=== PATIENT | male | born 1940 | race Caucasian/White ===

== ENCOUNTER 2016-09-01 10:58 | Observation (INO) | payer MEDICARE, OTHER ==
[~2016-09-01] VITALS: Ht 188 cm; Wt 82.2 kg
[2016-09-01] MEDS: OCUVITE 1 TAB PO SCH (09:00)
[2016-09-01] MEDS: VITAMIN B COMPLEX/VIT C CAP PO SCH (09:00)
[2016-09-01] MEDS: VITAMIN D 1,000 INTERNATIONAL UNITS TABLET PO SCH (09:00)
[2016-09-01] MEDS: CO-ENZYME Q10 50 MG CAP PO SCH (09:00)
[2016-09-01] MEDS: ENOXAPARIN 30 MG/0.3 ML SYR (J1650) SC SCH (09:00)
[2016-09-01 12:28] LABS: BASO % 0.5 % (0.0-1.0); EOS # 0.4 K/mm3 (0.0-0.50); EOS % 3.4 % (0.0-3.0); LARGE UNSTAINED CELL # 0.2 K/mm3 (0.0-0.4); LARGE UNSTAINED CELL % 1.8 % (0.0-4.0); LYMPH # 2.8 K/mm3 (1.5-4.5); LYMPH % 23.7 % (24.0-44.0); MEAN CORPUSCULAR HEMOGLOBIN 30.3 pg (27.0-33.0); MEAN CORPUSCULAR HGB CONC 32.6 g/dl (32.0-36.5); MONO # 0.6 K/mm3 (0.0-0.8); MONO % 5.8 % (0.0-5.0); NEUTROPHILS % 64.9 % (36.0-66.0); PLATELET COUNT, AUTOMATED 569 k/mm3 (150-450); WHITE BLOOD COUNT 10.8 K/mm3 (4.0-10.0)
--- NOTE | 2016-09-01 12:36 | REP ---
Clinical: Trauma. Fall. Comparison: None . Findings: The mediastinum and cardiac silhouette are stable and within normal limits for portable technique. The lung campoverde are clear without acute consolidation, effusion, or pneumothorax. Skeletal structures are intact. Widening to the left acromioclavicular joint is similar to prior CT dated 10/27/2015. Impression: No acute cardiopulmonary process appreciated. Signed by Tejas Tristan MD 09/01/2016 12:28 P
--- NOTE | 2016-09-01 12:53 | REP ---
CT HEAD WITHOUT CONTRAST: HISTORY: Fall. Areas of decreased attentuation are present in the periventricular white matter. This represents small vessel ischemic disease. There is no intraparenchymal hemorrhage, mass, or midline shift. The ventricular system and cortical sulci as well as subarachnoid space in the posterior fossa are dilated consistent with mild volume loss. There is no extracerebral collection. There is no fracture. The visualized sinuses are clear. IMPRESSION: 1. Small vessel ischemic disease. 2. Mild volume loss. Signed by Jose Alejandro Beclher MD 09/01/2016 01:01 P
[2016-09-01 12:59] LABS: ALBUMIN 3.6 GM/DL (3.2-5.2); ALBUMIN/GLOBULIN RATIO 0.88 (1.00-1.93); ALKALINE PHOSPHATASE 83 U/L (45-117); ALT/SGPT 17 U/L (12-78); ANION GAP 9 MEQ/L (8-16); AST/SGOT 19 U/L (15-37); BILIRUBIN,DIRECT 0.1 MG/DL (0.0-0.2); BILIRUBIN,TOTAL 0.4 MG/DL (0.2-1.0); BLOOD UREA NITROGEN 18 MG/DL (7-18); CALCIUM LEVEL 9.1 MG/DL (8.8-10.2); CARBON DIOXIDE LEVEL 30 MEQ/L (21-32); CHLORIDE LEVEL 96 MEQ/L (98-107); CREATININE FOR GFR 0.94 MG/DL (0.70-1.30); GLOMERULAR FILTRATION RATE > 60.0 (>42); GLUCOSE, FASTING 117 MG/DL (83-110); SODIUM LEVEL 135 MEQ/L (136-145); TOTAL PROTEIN 7.7 GM/DL (6.4-8.2)
--- NOTE | 2016-09-01 14:04 | REP ---
Clinical: Trauma. Technique: AP, lateral, bilateral oblique and sunrise views of the left knee. Findings: Osteopenia and age-related degenerative changes including medial and patellofemoral joint space compartment narrowing with subchondral sclerosis is appreciated. No acute fracture dislocation. No effusion. Impression: Osteopenia and degenerative changes. No acute fracture or dislocation. Signed by Tejas Tristan MD 09/01/2016 01:55 P
[2016-09-01] MEDS: NS 1,000 ML IV SCH (14:18)
[2016-09-01] MEDS ORDERED: BISACODYL 5 MG TAB PO PRN (14:30)
[2016-09-01] MEDS ORDERED: ONDANSETRON 4MG/2ML VIAL (J2405) IV PRN (14:30)
[2016-09-01] MEDS ORDERED: CEFUROXIME 250 MG TAB PO ONE (14:30)
[2016-09-01] MEDS ORDERED: ACETAMINOPHEN TAB 650MG DOSE (2X325MG) PO PRN (14:30)
[2016-09-01] MEDS ORDERED: PERCOCET 5MG/325MG TAB PO PRN (14:30)
[2016-09-01] MEDS ORDERED: HYDR25TAB PO (14:53)
[2016-09-01] MEDS ORDERED: COLA100C PO (14:53)
[2016-09-01] MEDS ORDERED: METO12TA PO (14:53)
[2016-09-01] MEDS ORDERED: NORT25CA2 PO (14:53)
[2016-09-01] MEDS ORDERED: VITATAB11 PO (14:53)
[2016-09-01] MEDS ORDERED: VITA100066 PO (14:53)
[2016-09-01] MEDS ORDERED: SIMV20TA2 PO (14:53)
[2016-09-01] MEDS ORDERED: ASPI1TAB PO (14:53)
[2016-09-01] MEDS ORDERED: LUPR45IN IM (14:53)
[2016-09-01] MEDS ORDERED: CO Q200C PO (14:53)
[2016-09-01] MEDS ORDERED: DOXA1TAB49 PO (14:53)
[2016-09-01] MEDS ORDERED: ZOFR8TAB PO (14:54)
[2016-09-01] MEDS ORDERED: TRAM50TA2 PO (14:54)
[2016-09-01] MEDS ORDERED: CEFT250T8 PO (14:54)
[2016-09-01] MEDS ORDERED: OCUVTAB PO (14:56)
[2016-09-01] MEDS ORDERED: OYST500T17 PO (14:56)
[2016-09-01] MEDS ORDERED: XTAN40CA PO (14:56)
[2016-09-01] MEDS ORDERED: MIRA3350 PO (14:56)
[2016-09-01 15:00] LABS: CALCIUM OXALATE CRYSTALS SMALL
[2016-09-01] MEDS ORDERED: traMADol 50 MG TAB PO PRN (15:30)
[2016-09-01] MEDS ORDERED: ONDANSETRON 4 MG TAB (S0181) PO PRN (15:30)
[2016-09-01] MEDS ORDERED: DOCUSATE SODIUM 100 MG CAP PO PRN (15:30)
[2016-09-01] MEDS ORDERED: MIRALAX *UNIT DOSE* 17GM PACKET PO PRN (15:30)
--- NOTE | 2016-09-01 15:32 | HPEPDOC ---
Medical History and Physical Date of Admission Sep 01, 2016 at 14:18 History and Physical ATTENDING: Dr. Haque PCP: Dr Sharla Dominguez CC: Falls/weakness HPI: 76 yoM with a past medical history significant for hypertension, hyperlipidemia, metastatic prostate cancer recent double J stent placement at [facility] approximately 1 week ago. He had a hospital follow-up appointment yesterday with his PCP with referral to a local urologist, Dr. Billings for continued follow-up. He was continued on oral Ceftin following his discharge. He states he hasn't been feeling well until 3 AM today when he suddenly felt weak and slightly lightheaded. When he tried to get up from a sitting position he states he had 3 falls. On one occasion he had his left knee causing some discomfort in his knee. He states he had no loss of consciousness. No head injury. No syncopal episode. No palpitations. No chest discomfort. He reported to the emergency department for further evaluation Denies any fevers, chills, weakness , fatigue, WANG, CP, SOB, cough, palpitations, abdominal pain, N/V/D or changes in bowel or bladder habits. Upon presentation to the hospital the patient was found to have orthostatic hypotension, thus the hospitalist team was consulted. PMHx: Prostate cancer with history of metastases status post radiation treatment and chemotherapy as per Dr. Lee/Dwain NIDDM- diet controlled Hypertension Hyperlipidemia Vitamin D deficiency Chronic left knee pain PSHX: Left rotator cuff repair Circumcision 2008 Left CEA Bilateral cataract Double-J stent 09/07 SOCHX: Resides in: [place] Marital Status: Kids: 3 Employment: Retired Tobacco use: Denies ETOH: Denies Illicit Drugs: Denies Advanced directives: none ROS: As noted in HPI, otherwise 11pt ROS of systems reviewed and unremarkable PE: GEN: 76yoM, appears stated age. Well-nourished, well developed. No acute distress sitting up on stretcher currently eating crackers and drinking. Alert and oriented x 3. Pleasant, interactive. HEENT: Normocephalic, atraumatic. Pupils are equal, round, and reactive to light. Extraocular movements are intact. No nystagmus appreciated. Sclera are nonicteric. Conjunctiva without injection. Nose midline. Nasal turbinates without bogginess. EACs both patent BL. TMs both visualized and sibley with good cone of light, no bulging or erythema. No facial asymmetry. Moist mucous membranes. Dentition fair. Pharynx pink and moist, no cobblestoning. Neck supple , trachea midline. No lymphadenopathy or thyromegaly appreciated. CHEST: Regular rate and rhythm, +S1, +S2 LUNGS: Clear to auscultation bilaterally. No wheezes, rales, or rhonchi. Breathing appears symmetric and easy. Patient is speaking in full sentences. No accessory muscle use. ABD: Round, soft, non-tender, non-distended. +Bowel sounds throughout. No rebound or guarding. No costovertebral angle tenderness. EXT: Pulses 2+ bilaterally dorsalis pedis and radial. No lower extremity edema appreciated. SKIN: [place], dry, warm. Capillary refill <2sec. No rashes. NEURO: Alert and oriented x 3. Cranial nerves III-XII are intact. No focal deficits appreciated. Blood pressure lying 135/64 Sitting 99/50 Standing 93/53 CXR: No acute cardiopulmonary process CT: Head. Small vessel ischemic disease, mild volume loss X-ray left knee osteopenia and degenerative change, no acute fracture or dislocation EKG: Normal sinus rhythm at 61 bpm, right bundle branch block. Urine culture pending A&P: 6 yoM with a past medical history significant for hypertension, hyperlipidemia, metastatic prostate cancer recent double J stent placement at [facility] approximately 1 week ago. He had a hospital follow-up appointment yesterday with his PCP with referral to a local urologist, Dr. Billings for continued follow-up. He was continued on oral Ceftin following his discharge. The patient will be admitted to / for at least [address] Haque's service. Orthostatic hypotension. IVF. Monitor Orthostatic vital signs. Hold antihypertensives. Status post fall/left knee pain. PT eval and treat. Tylenol as needed. Ultram as needed. Double-J stent placement. This was completed approximately 1 week ago as per [facility] in [place]. Plan is for referral to Urology locally, Dr Billings. UC pending. Cont po Ceftin. History of prostate cancer. Follows with Dr. Prakash as outpatient. Doxazosin. Hyperlipidemia. Statin HTN. Metoprolol/HCTZ/ASA on hold. DVT prophylaxis. SCD/TEDS The patient is a Full code Vital Signs 93/53 74 18 98.3 100 room air Laboratory Data Labs 24H Laboratory Tests 2 09/01/16 12:14: Aspartate Amino Transf (AST/SGOT) 19, Alanine Aminotransferase (ALT/SGPT) 17, Alkaline Phosphatase 83, Total Bilirubin 0.4, Direct Bilirubin 0.1, Albumin 3.6 , Albumin/Globulin Ratio 0.88L, Anion Gap 9, White Blood Count 10.8H, Red Blood Count 4.16L, Hemoglobin 12.6L, Hematocrit 38.7L, Mean Corpuscular Volume 93.0, Mean Corpuscular Hemoglobin 30.3, Mean Corpuscular Hemoglobin Concent 32.6, Red Cell Distribution Width 14.0, Platelet Count 569H, Neutrophils (%) (Auto) 64.9, Lymphocytes (%) (Auto) 23.7L, Monocytes (%) (Auto) 5.8H, Eosinophils (%) (Auto) 3.4H, Basophils (%) (Auto) 0.5, Neutrophils # (Auto) 7.0, Lymphocytes # (Auto) 2.8, Monocytes # (Auto) 0.6, Eosinophils # (Auto) 0.4, Basophils # (Auto) 0.0, Calcium Level 9.1, Creatine Kinase MB 1.0, Creatine Kinase MB Relative Index 3.22, Glomerular Filtration Rate > 60.0, Large Unclassified Cells # 0.2, Large Unclassified Cells % 1.8, Total Creatine Kinase 31L, Total Protein 7.7, Troponin I < 0.02 09/01/16 14:31: Urine Amorphous Sediment , Urine Appearance HAZY, Urine Color YELLOW, Urine pH 6.0, Urine Specific [place] 1.014, Urine Protein 2+H, Urine Glucose (UA) NEGATIVE, Urine Ketones NEGATIVE, Urine Urobilinogen 0.2, Urine Bilirubin NEGATIVE, Urine Leukocyte Esterase 1+H, Urine Bacteria (Auto) NEGATIVE, Urine Blood 3+H, Urine Calcium Carbonate Cryst(Auto) , Urine Calcium Oxalate Cryst ( Auto) SMALL, Urine Calcium Phosphate Shobha (Auto) , Urine Cellular Casts , Urine Cystine Crystals , Urine Granular Casts (Auto) , Urine Hyaline Casts (Auto) 0, Urine Leucine Crystals , Urine Mucus (Auto) SMALL, Urine Nitrite NEGATIVE, Urine Oval Fat Bodies (Auto) , Urine RBC (Auto) TNTCH, Urine Renal Epithelial Cells , Urine Sperm (Auto) , Urine Squamous Epithelial Cells 0, Urine Transitional Epithelial Cells , Urine Trichomonas (Auto) , Urine Triple Phosphate Cryst (Auto) , Urine Tyrosine Crystals , Urine Uric Acid Crystals ( Auto) , Urine WBC (Auto) 137H, Urine Waxy Casts (Auto) , Urine Yeast-Like Cells (Auto) CBC/BMP Laboratory Tests 09/01/16 12:14 Red Blood Count 4.16 L, Mean Corpuscular Volume 93.0, Mean Corpuscular Hemoglobin 30.3, Mean Corpuscular Hemoglobin Concent 32.6, Red Cell Distribution Width 14.0, Neutrophils (%) (Auto) 64.9, Lymphocytes (%) (Auto) 23.7 L, Monocytes (%) (Auto) 5.8 H, Eosinophils (%) (Auto) 3.4 H, Basophils (%) (Auto) 0.5, Neutrophils # (Auto) 7.0, Lymphocytes # (Auto) 2.8, Monocytes # ( Auto) 0.6, Eosinophils # (Auto) 0.4, Basophils # (Auto) 0.0 Microbiology Microbiology 09/01/16 Urine Culture, Received Pending Home Medications Scheduled (Co Q-10) 200 Mg Cap 200 MG PO DAILY Aspirin (Aspirin 81) 81 Mg Tab 162 MG PO DAILY B1/B2/B3/B5/B6 (Vitamin B Complex) 1 Tab Tab 1 TAB PO DAILY Calcium/Vitamin D (Oyster Shell Calcium + 500-200 mg-Unit) 1 Tab Tab 1 TAB PO DAILY Cefuroxime Axetil (Ceftin) 250 Mg Tab 250 MG PO BID STARTED 08/27/16 FOR 7 DAYS Cholecalciferol (Vitamin D) 1,000 Unit Tab 1,000 UNIT PO DAILY Doxazosin Mesylate (Doxazosin Mesylate) 8 Mg Tab 8 MG PO QPM Enzalutamide Base (Xtandi) 40 Mg Cap 120 MG PO DAILY Hydrochlorothiazide (Hydrochlorothiazide) 25 Mg Tab 25 MG PO DAILY Leuprolide Acetate (Lupron Depot) 45 Mg Inj 45 MG IM ASDIRECTED EVERY 6 MONTHS: DUE DECEMBER 2016 Metoprolol Tartrate (Metoprolol Tartrate) 25 Mg Tab 25 MG PO BID Multivitamins (Ocuvite) 1 Tab Tab 1 TAB PO DAILY Nortriptyline HCl (Nortriptyline HCl) 25 Mg Cap 25 MG PO BID Simvastatin (Simvastatin) 20 Mg Tab 20 MG PO QPM Scheduled PRN Docusate Sodium (Colace) 100 Mg Cap 100 MG PO DAILY PRN PRN CONSTIPATION Ondansetron HCl (Zofran) 8 Mg Tab 8 MG PO TID PRN PRN NAUSEA OR VOMITING Polyethylene Glycol (Miralax) 1 Pow 17 GM PO DAILY PRN PRN CONSTIPATION Tramadol HCl (Tramadol HCl) 50 Mg Tab 50 MG PO Q6H PRN PRN PAIN Allergies Coded Allergies: No Known Drug Allergy (Verified Allergy, Unknown, 11/27/12) Jsoie Juarez Sep 01, 2016 15:32
[2016-09-01] MEDS ORDERED: DOXAZOSIN MESYLATE 4 MG TAB PO SCH (18:00)
--- NOTE | 2016-09-01 18:10 | ECGEPIP ---
Stationary ECG Study [facility] - ED Test Date: 2016-09-01 Pat Name: TITUS PURCELL Department: Room: - Gender: M Rn Private Duty: alphonse : 1940 Requested By: Zaid James Order Number: [id number] Reading MD: Rebeca Ventura Measurements Intervals [place] Rate: 61 P: 47 [place]: 164 QRS: 54 QRSD: 133 T: 21 QT: 506 QTc: 511 Interpretive Statements SINUS RHYTHM RIGHT BUNDLE BRANCH BLOCK NO PRIOR FOR COMPARISON Electronically Signed On 09-01-2016 18:10:12 EST by Rebeca Ventura
[2016-09-01] MEDS: SIMVASTATIN 20 MG TAB PO SCH (21:00)
[2016-09-01] MEDS: CEFUROXIME 250 MG TAB PO SCH (21:00)
[2016-09-01] MEDS: NORTRIPTYLINE 25 MG CAP PO SCH (21:00)
--- NOTE | 2016-09-02 01:55 | EDDOCDS ---
Physician Documentation [facility] Name: Jerry Ashley Age: 76 yrs Sex: Male : 1940 Arrival Date: 09/01/2016 Time: 10:58 Bed Admit Hold Private MD: Darrell Dominguez Disposition: 09/01/16 14:18 Hospitalization ordered by Aixa Barraza for Inpatient Admission. Preliminary diagnosis are Syncope and collapse, Orthostatic hypotension, Unspecified right bundle-branch block. - Bed requested for 5 Moran. - Status is Inpatient Admission. jp6 - Condition is Stable. - Problem is new. - Symptoms are unchanged. Historical: - Allergies: no known allergies; - Home Meds: 1. doxazosin 8 mg oral tr24 1 tab once daily (Last dose: 08/31/2016) 2. metoprolol tartrate 25 mg Oral tab 1 tab 2 times per day (Last dose: 09/01/2016) 3. simvastatin 20 mg Oral tab 1 tab once daily (Last dose: 08/31/2016) 4. aspirin 162 mg Oral TbEC 1 tab once daily (Last dose: 09/01/2016) 5. Vitamin D 1000 units Oral daily (Last dose: 09/01/2016) 6. vitamin B complex oral cap 500 mg daily (Last dose: 09/01/2016) 7. CoQ-10 oral 200 mg oral daily (Last dose: 09/01/2016) 8. hydrochlorothiazide 25 mg Oral tab 1 tab once daily (Last dose: 09/01/2016) 9. Colace oral Unknown oral prn as needed 10. nortriptyline 25 mg Oral cap 1 cap 2 times per day (Last dose: 09/01/2016) 11. Lupron Depot (6 Month) 45 mg intramuscular sykt every 6 months (Last dose: 08/01/2016) 12. Xtandi 40 mg oral cap 3 caps once daily (Last dose: 09/01/2016) 13. ondansetron HCl 8 mg Oral tab 1 tab prn 14. tramadol 50 mg Oral tab 1 tab (Last dose: Unknown) - PMHx: prostate cancer; Diabetes - NIDDM: controlleddietary controlled; spondylosis; kidney blockage; sepsis; pleural effusion; - PSHx: Rotator Cuff Repair- Left; circumcision (2008); Carotid surgery; Cataract Surgery- Bilateral; double J stent; - Social history: Smoking status: Patient states former smoker of tobacco. No barriers to communication noted. - Family history: Not pertinent. - : The pt / caregiver states he / she is not on anticoagulants. Home medication list is obtained from the patient. - Exposure Risk Screening:: None identified. Vital Signs: 09/01 11:00 BP 98 / 56; Pulse 83; Resp 18; Temp 98.3(O); Pulse Ox 100% ; Weight 88.45 kg / 195 lbs; cmb Height 6 ft. 2 in. (187.96 cm); Pain 0/10; 13:34 BP 135 / 64 Supine; Pulse 62; jmk 13:34 BP 99 / 50 Sitting; Pulse 69; jmk 13:35 BP 93 / 53 Standing; Pulse 74; jmk 19:17 BP 144 / 63 (auto/); jp6 19:17 Pulse 70 MON; Pulse Ox 97% ; jp6 23:11 BP 135 / 63; Pulse 77; Resp 16; Temp 99.7; Pulse Ox 96% on R/A; Pain 0/10; jp6 11:00 Body Mass Index 25.04 (88.45 kg, 187.96 cm) cmb MDM: 11:52 IV Saline Lock ordered. ml 11:52 Head Mva Reactor Operator/Pulse Ox/q 15 min VS ordered. ml 11:52 Rhythm Strip to chart ordered. ml 11:52 Orthostatic VS ordered. ml 11:52 NS 0.9% 500 ml IV at bolus once ordered. ml 11:53 ECG WITH READING ER PHYS+CARDIAG ordered. EDMS 11:54 CBC with Diff Ordered. EDMS 11:54 MED Profile Ordered. EDMS 11:54 CIP Ordered. EDMS 11:54 Troponin Ordered. EDMS 11:54 Liver Profile Ordered. EDMS 11:54 Chest, 1 View Ordered. EDMS 11:54 CT Head Without Contrast Ordered. EDMS 13:18 Knee, Complete Ordered. EDMS 13:57 Financial registration complete. pm4 13:59 NS 0.9% 500 ml IV at bolus once ordered. br1 14:00 CBC with Diff Reviewed. br1 14:00 MED Profile Reviewed. br1 14:00 CIP Reviewed. br1 14:00 Liver Profile Reviewed. br1 14:00 Troponin Reviewed. br1 14:00 Chest, 1 View Reviewed. br1 14:00 CT Head Without Contrast Reviewed. br1 14:10 cefUROXime 250 mg PO once ordered. br1 14:10 BED REQUEST+ADM ordered. EDMS 14:15 Urinalysis Ordered. EDMS 14:15 Urine Culture Ordered. EDMS 14:23 PHYSICAL THERAPY EVAL & TREAT ordered. EDMS 14:24 Admission / Observation Status ordered. EDMS 14:24 NO ADDED SALT DIET ordered. EDMS 14:49 [facility] Payment Agreement was scanned into [employer] and attached to record. pm4 15:05 NS 0.9% 1000 ml IV at 100 mL/hr continuous ordered. jmk 15:07 T-Sheet-- Draft Copy was scanned into [employer] and attached to record. gb 19:33 CBC WITH DIFFERENTIAL Ordered. EDMS 19:33 COMPLETE COMPHRENSIVE METABOLI Ordered. EDMS Administered Medications: 12:21 Drug: NS 0.9% 500 ml Route: IV; Rate: bolus; Site: left antecubital; jmk 14:34 Drug: NS 0.9% 500 ml Route: IV; Rate: bolus; Site: left antecubital; jmk 15:06 Follow up: IV Status: Completed infusion jmk 15:03 Drug: cefUROXime 250 mg Route: PO; jmk 15:05 Drug: NS 0.9% 1000 ml Route: IV; Rate: 100 mL/hr; Site: left antecubital; jmk Signatures: Dispatcher [employer] EDOH Zaid James MD MD ml Rebel Leal,RN RN jmk Lidia Condon, Reg Reg gb William Young, Visual C Developer Unit ml3 Floyd Rodrigues MD MD br1 Raul aRlph,RN RN mb9 Senait Garcia,RN RN jp6 Ramesh Boo, Reg Reg pm4 The chart was reviewed and I authenticate all verbal orders and agree with the evaluation and treatment provided.Corrections: (The following items were deleted from the chart) 14:32 14:24 BASIC METABOLIC PROFILE ordered. EDMS EDMS 14:32 14:25 CBC WITH DIFFERENTIAL ordered. EDMS EDMS Attachments: 14:49 [facility] Payment Agreement pm4 15:07 T-Sheet-- Draft Copy gb MTDD
--- NOTE | 2016-09-02 01:55 | EDDOCDS ---
Nurse's Notes [facility] Name: Jerry Ashley Age: 76 yrs Sex: Male : 1940 Arrival Date: 09/01/2016 Time: 10:58 Bed Admit Hold Private MD: Darrell Dominguez Diagnosis: Syncope and collapse;Orthostatic hypotension;Unspecified right bundle-branch block Presentation: 09/01 11:11 Presenting complaint: Patient states: "I'm awful weak and I fell 3 times this morning". mb9 pt reports all 3 falls resulted after standing up from a sitting position. pt denies dizziness, headache, or chest pain. pt reports feeling weak and dizzy. pt's reports pt was discharged from [facility] in [place] 1 week ago after having a, "double J tube" placed after having a kidney blockage. Adult Sepsis Screening: The patient does not have new or worsening altered mentation. Patient's respiratory rate is less than 22. Systolic blood pressure is greater than 100. Patient has a qSOFA score of 1- Negative Sepsis Screen. Suicide/Homicide risk assessment- the patient denies having any suicidal and/or homicidal ideations and does not present with any other emotional, behavioral or mental health complaints. Status: Patient is not a corporate services manager or dependent. Transition of care: patient was not received from another setting of care. 11:11 Acuity: TONO Level 3 mb9 11:11 Method Of Arrival: Walkin/Carried/Asstd mb9 Triage Assessment: 11:32 General: Appears in no apparent distress, Behavior is appropriate for age, cooperative. mb9 Pain: Location: medial aspect of left thigh Pain currently is 6 out of 10 on a pain scale. Neurological: Level of Consciousness is awake, alert, Oriented to person, place, time, Speech is normal, Facial symmetry appears normal. Respiratory: Airway is patent Respiratory effort is even, unlabored. Historical: - Allergies: no known allergies; - Home Meds: 1. doxazosin 8 mg oral tr24 1 tab once daily (Last dose: 08/31/2016) 2. metoprolol tartrate 25 mg Oral tab 1 tab 2 times per day (Last dose: 09/01/2016) 3. simvastatin 20 mg Oral tab 1 tab once daily (Last dose: 08/31/2016) 4. aspirin 162 mg Oral TbEC 1 tab once daily (Last dose: 09/01/2016) 5. Vitamin D 1000 units Oral daily (Last dose: 09/01/2016) 6. vitamin B complex oral cap 500 mg daily (Last dose: 09/01/2016) 7. CoQ-10 oral 200 mg oral daily (Last dose: 09/01/2016) 8. hydrochlorothiazide 25 mg Oral tab 1 tab once daily (Last dose: 09/01/2016) 9. Colace oral Unknown oral prn as needed 10. nortriptyline 25 mg Oral cap 1 cap 2 times per day (Last dose: 09/01/2016) 11. Lupron Depot (6 Month) 45 mg intramuscular sykt every 6 months (Last dose: 08/01/2016) 12. Xtandi 40 mg oral cap 3 caps once daily (Last dose: 09/01/2016) 13. ondansetron HCl 8 mg Oral tab 1 tab prn 14. tramadol 50 mg Oral tab 1 tab (Last dose: Unknown) - PMHx: prostate cancer; Diabetes - NIDDM: controlleddietary controlled; spondylosis; kidney blockage; sepsis; pleural effusion; - PSHx: Rotator Cuff Repair- Left; circumcision (2008); Carotid surgery; Cataract Surgery- Bilateral; double J stent; - Social history: Smoking status: Patient states former smoker of tobacco. No barriers to communication noted. - Family history: Not pertinent. - : The pt / caregiver states he / she is not on anticoagulants. Home medication list is obtained from the patient. - Exposure Risk Screening:: None identified. Screenin:17 Screening information is obtained from the patient. Fall risk: At risk due to prior 6 history of falls. Assistance ADL's: requires no assistance with activities of daily living. Abuse/DV Screen: The patient / caregiver reports he/she is: not in a situation that causes fear, pain or injury. Nutritional screening: No deficits noted. home support is adequate. 23:11 Advance Directives: Currently, there is no health care proxy. There is no active DNR [facility] order. There is no living will. Assessment: 12:22 General: Appears in no apparent distress, pleasant and conversive. moist pink oral jmk mucosa. without resp distress or work of breathing. chest CTA. abd soft and non distended with bowel sounds present x 4. urostomy tube intact to right flank area. 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 13:31 General: Appears bolus infused without event. Orthostat vs obtained. dizzy/light headed jmk with change in position. stood for seconds duration, and then assisted to supine position. 17:34 General: Appears remains pleasant and conversive without complaints. No additonal jmk challenge with physical activity. Monitor has remained as sr. IV infusing at 100ml/hr: site clear. without new complaints. awaiting admission. Neurological: No deficits noted. Cardiovascular: Capillary refill < 3 seconds Clubbing of nail beds is absent Heart tones S1 S2 present Edema is absent. Rhythm is regular. Respiratory: No deficits noted. Airway is patent Respiratory effort is even, unlabored, Respiratory pattern is regular, Breath sounds are clear bilaterally. 18:33 General: Appears diet provided and very receptive. facial color has improved. Jovial jmk and conversive. Patiently awaiting bed avail.. 19:30 General: Appears in no apparent distress, comfortable, unkempt, Behavior is appropriate jp6 for age, cooperative, pleasant. Pain: Location: left leg-left knee Pain currently is 4 out of 10 on a pain scale. Neurological: No deficits noted. Level of Consciousness is awake, alert, Oriented to person, place, time. EENT: No deficits noted. Cardiovascular: No deficits noted. Capillary refill < 3 seconds Heart tones S1 S2 present Edema is absent. Rhythm is sinus rhythm No ectopy. Respiratory: No deficits noted. Airway is patent Respiratory effort is even, unlabored, Respiratory pattern is regular, Breath sounds are clear bilaterally. GI: No deficits noted. Abdomen is flat, non- distended Bowel sounds present X 4 quads. : No deficits noted. Derm: No deficits noted. Skin is pink, warm & dry. Musculoskeletal: No deficits noted. 21:18 Reassessment: Patient states symptoms have improved. General: Appears in no apparent jp6 distress, comfortable, Behavior is appropriate for age, cooperative. Pain: Denies pain. Neurological: No deficits noted. EENT: No deficits noted. Cardiovascular: No deficits noted. Respiratory: Airway is patent Respiratory effort is even, unlabored, Respiratory pattern is regular, symmetrical. GI: No deficits noted. : No deficits noted. Derm: Skin is pink, warm & dry. 22:00 Reassessment: Patient appears in no apparent distress at this time. Patient denies pain jp6 at this time. Neurological: No deficits noted. EENT: No deficits noted. Cardiovascular: No deficits noted. Respiratory: Airway is patent Respiratory effort is even, unlabored, Respiratory pattern is regular, symmetrical. Derm: Skin is pink, warm & dry. 23:11 Reassessment: Patient appears in no apparent distress at this time. Patient denies pain jp6 at this time. General: Appears in no apparent distress, comfortable, Behavior is appropriate for age, cooperative. Neurological: Level of Consciousness is awake, alert, Oriented to person, place, time. EENT: No deficits noted. Cardiovascular: No deficits noted. Respiratory: No deficits noted. Airway is patent Respiratory effort is even, unlabored, Respiratory pattern is regular, symmetrical, Breath sounds are clear. : Urine is tea colored. Derm: Skin is pink, warm & dry. 09/02 00:24 Reassessment: Patient appears in no apparent distress at this time. General: Appears to jp6 be sleeping. Vital Signs: 09/01 11:00 BP 98 / 56; Pulse 83; Resp 18; Temp 98.3(O); Pulse Ox 100% ; Weight 88.45 kg; Height 6 cmb ft. 2 in. (187.96 cm); Pain 0/10; 13:34 BP 135 / 64 Supine; Pulse 62; jmk 13:34 BP 99 / 50 Sitting; Pulse 69; jmk 13:35 BP 93 / 53 Standing; Pulse 74; jmk 19:17 BP 144 / 63 (auto/); jp6 19:17 Pulse 70 MON; Pulse Ox 97% ; jp6 23:11 BP 135 / 63; Pulse 77; Resp 16; Temp 99.7; Pulse Ox 96% on R/A; Pain 0/10; jp6 11:00 Body Mass Index 25.04 (88.45 kg, 187.96 cm) cmb Vitals: 11:00 Log In Time: September 01, 2016 at 10:58. b ED Course: 10:59 Patient visited by Becki Jane. cmb 10:59 Patient moved to Waiting b 11:00 Darrell Dominguez is Private Physician. cmb 11:02 Patient moved to Pre RCE cmb 11:15 Triage Initiated mb9 11:33 Patient moved to Triage 1 jf3 11:34 Patient moved to Pre RCE jf3 11:36 Patient moved to 17 dsf 12:09 Patient visited by Damir Gandara PCA. jlf 12:09 Patient visited by Damir Gandara PCA. jlf 12:09 EKG done. (by ED staff). Reviewed by Zaid James MD. jlf 12:17 Liver Profile Sent. kc3 12:17 Troponin Sent. kc3 12:17 CIP Sent. kc3 12:17 MED Profile Sent. kc3 12:17 CBC with Diff Sent. kc3 12:22 Inserted saline lock: 20 gauge in left antecubital area. jmk 12:28 Patient visited by Damir Gandara PCA. jlf 12:38 Floyd Rodrigues MD is Attending Physician. br1 12:59 Patient visited by Damir Gandara PCA. jlf 13:15 Chest, 1 View Returned. EDMS 13:15 CT Head Without Contrast Returned. EDMS 13:16 Patient visited by Floyd Rodrigues MD. br1 14:08 Patient visited by Floyd Rodrigues MD. br1 14:11 Knee, Complete Returned. EDMS 14:18 Aixa Barraza is Hospitalizing Provider. br1 14:34 Urinalysis Sent. jmk 14:34 Urine Culture Sent. jmk 14:40 Patient name changed from Jerry\\S\\\\S\\Ashley\\S\\ to Jerry\\S\\ \\S\\Ashley. EDMS 14:49 [facility] Payment Agreement was scanned into [employer] and attached to record. pm4 15:07 T-Sheet-- Draft Copy was scanned into [employer] and attached to record. gb 17:16 Patient moved to Admit Hold [facility] 19:08 Senait Garcia,RN is Primary Nurse. jp6 19:13 EKG-ADULT Returned. EDMS 19:17 The patient / caregiver is instructed regarding the plan of care and ED course. Cardiac jp6 monitor on. Pulse ox on. NIBP on. 21:18 No procedures done that require assistance. jp6 Administered Medications: 12:21 Drug: NS 0.9% 500 ml Route: IV; Rate: bolus; Site: left antecubital; jmk 14:34 Drug: NS 0.9% 500 ml Route: IV; Rate: bolus; Site: left antecubital; keegan 15:06 Follow up: IV Status: Completed infusion keegan 15:03 Drug: cefUROXime 250 mg Route: PO; keegan 15:05 Drug: NS 0.9% 1000 ml Route: IV; Rate: 100 mL/hr; Site: left antecubital; keegan Order Results: Lab Order: CBC with Diff; SPEC'M 09/01/16 12:14 Test: WHITE BLOOD COUNT; Value: 10.8; Range: 4.0-10.0; Abnormal: Above high normal; Units: K/mm3; Status: F Test: RED BLOOD COUNT; Value: 4.16; Range: 4.30-6.10; Abnormal: Below low normal; Units: M/mm3; Status: F Test: HEMOGLOBIN; Value: 12.6; Range: 14.0-18.0; Abnormal: Below low normal; Units: g/dl; Status: F Test: HEMATOCRIT; Value: 38.7; Range: 42.0-52.0; Abnormal: Below low normal; Units: %; Status: F Test: MEAN CORPUSCULAR VOLUME; Value: 93.0; Range: 80.0-96.0; Units: fl; Status: F Test: MEAN CORPUSCULAR HEMOGLOBIN; Value: 30.3; Range: 27.0-33.0; Units: pg; Status: F Test: MEAN CORPUSCULAR HGB CONC; Value: 32.6; Range: 32.0-36.5; Units: g/dl; Status: F Test: RED CELL DISTRIBUTION WIDTH; Value: 14.0; Range: 11.5-14.5; Units: %; Status: F Test: PLATELET COUNT, AUTOMATED; Value: 569; Range: 150-450; Abnormal: Above high normal; Units: k/mm3; Status: F Test: NEUTROPHILS %; Value: 64.9; Range: 36.0-66.0; Units: %; Status: F Test: LYMPH %; Value: 23.7; Range: 24.0-44.0; Abnormal: Below low normal; Units: %; Status: F Test: MONO %; Value: 5.8; Range: 0.0-5.0; Abnormal: Above high normal; Units: %; Status: F Test: EOS %; Value: 3.4; Range: 0.0-3.0; Abnormal: Above high normal; Units: %; Status: F Test: BASO %; Value: 0.5; Range: 0.0-1.0; Units: %; Status: F Test: LARGE UNSTAINED CELL %; Value: 1.8; Range: 0.0-4.0; Units: %; Status: F Test: NEUTROPHILS #; Value: 7.0; Range: 1.8-7.7; Units: K/mm3; Status: F Test: LYMPH #; Value: 2.8; Range: 1.5-4.5; Units: K/mm3; Status: F Test: MONO #; Value: 0.6; Range: 0.0-0.8; Units: K/mm3; Status: F Test: EOS #; Value: 0.4; Range: 0.0-0.50; Units: K/mm3; Status: F Test: BASO #; Value: 0.0; Range: 0.0-0.2; Units: K/mm3; Status: F Test: LARGE UNSTAINED CELL #; Value: 0.2; Range: 0.0-0.4; Units: K/mm3; Status: F Lab Order: [facility] Profile; [facility] 09/01/16 12:14 Test: GLUCOSE, FASTING; Value: 117; Range: 83-110; Abnormal: Above high normal; Units: MG/DL; Status: F Test: BLOOD UREA NITROGEN; Value: 18; Range: 7-18; Units: MG/DL; Status: F Test: CREATININE FOR GFR; Value: 0.94; Range: 0.70-1.30; Units: MG/DL; Status: F Test: GLOMERULAR FILTRATION RATE; Value: > 60.0; Range: >42; Status: F Test: SODIUM LEVEL; Value: 135; Range: 136-145; Abnormal: Below low normal; Units: MEQ/L; Status: F Test: POTASSIUM SERUM; Value: 4.0; Range: 3.5-5.1; Units: MEQ/L; Status: F Test: CHLORIDE LEVEL; Value: 96; Range: 98-107; Abnormal: Below low normal; Units: MEQ/L; Status: F Test: CARBON DIOXIDE LEVEL; Value: 30; Range: 21-32; Units: MEQ/L; Status: F Test: ANION GAP; Value: 9; Range: 8-16; Units: MEQ/L; Status: F Test: CALCIUM LEVEL; Value: 9.1; Range: 8.8-10.2; Units: MG/DL; Status: F Test Note: ; Units are mL/min/1.73 m2 Chronic Kidney Disease Staging per NKF: Stage I & II GFR >=60 Normal to Mildly Decreased Stage III GFR 30-59 Moderately Decreased Stage IV GFR 15-29 Severely Decreased Stage V GFR <15 Very Little GFR Left ESRD GFR <15 on COPY PREPARER Lab Order: CIP; SPEC'M 09/01/16 12:14 Test: CPK CREATINE PHOSPHOKINASE; Value: 31; Range: 39-308; Abnormal: Below low normal; Units: U/L; Status: F Test: CK-MB VALUE MASS; Value: 1.0; Range: 0.0-3.6; Units: NG/ML; Status: F Test: MB/CK RELATIVE INDEX; Value: 3.22; Range: < OR =4; Status: F Test Note: ; DIAGNOSIS CRITERIA MMB ng/ml Relative Index (RI) NON-AMI < or = 5 N/A JONES ZONE > 5 < or = 4 AMI > 5 > 4 Lab Order: Troponin; SPEC'09/01/16 12:14 Test: TROPONIN I; Value: < 0.02; Range: < 0.10; Units: NG/ML; Status: F Test Note: ; Troponin I Reference Interval for Worlds LOCI: 99th Percentile= 0.00-0.045 ng/ml Risk Stratification: <= 0.10 ng/ml Decreased Risk for Adverse Clinical Events. 0.10-1.50 ng/ml Increased Risk for Adverse Clinical Events. Evaluation of additional criterion and/or repeat testing in 2-6 hours is suggested to rule out myocardial damage. >= 1.50 ng/ml Indicative of Myocardial Injury. Lab Order: Liver Profile; SPEC'M 09/01/16 12:14 Test: AST/SGOT; Value: 19; Range: 15-37; Units: U/L; Status: F Test: ALT/SGPT; Value: 17; Range: 12-78; Units: U/L; Status: F Test: ALKALINE PHOSPHATASE; Value: 83; Range: 45-117; Units: U/L; Status: F Test: BILIRUBIN,TOTAL; Value: 0.4; Range: 0.2-1.0; Units: MG/DL; Status: F Test: BILIRUBIN,DIRECT; Value: 0.1; Range: 0.0-0.2; Units: MG/DL; Status: F Test: TOTAL PROTEIN; Value: 7.7; Range: 6.4-8.2; Units: GM/DL; Status: F Test: ALBUMIN; Value: 3.6; Range: 3.2-5.2; Units: GM/DL; Status: F Test: ALBUMIN/GLOBULIN RATIO; Value: 0.88; Range: 1.00-1.93; Abnormal: Below low normal; Status: F Lab Order: Urinalysis; SPEC'M 09/01/16 14:31 Test: APPEARANCE, URINE; Value: HAZY; Range: CLEAR; Status: F Test: COLOR, URINE; Value: YELLOW; Range: YELLOW; Status: F Test: PH,URINE; Value: 6.0; Range: 5.0-9.0; Units: UNITS; Status: F Test: SPECIFIC GRAVITY URINE AUTO; Value: 1.014; Range: 1.002-1.035; Status: F Test: PROTEIN, URINE AUTO; Value: 2+; Range: NEGATIVE; Abnormal: Above high normal; Units: mg/dL; Status: F Test: GLUCOSE, URINE (UA) AUTO; Value: NEGATIVE; Range: NEGATIVE; Units: mg/dL; Status: F Test: KETONE, URINE AUTO; Value: NEGATIVE; Range: NEGATIVE; Units: mg/dL; Status: F Test: UROBILINOGEN, URINE AUTO; Value: 0.2; Range: 0.0-2.0; Units: mg/dL; Status: F Test: BILIRUBIN, URINE AUTO; Value: NEGATIVE; Range: NEGATIVE; Status: F Test: NITRITE, URINE AUTO; Value: NEGATIVE; Range: NEGATIVE; Status: F Test: LEUKOCYTE ESTERASE, URINE AUTO; Value: 1+; Range: NEGATIVE; Abnormal: Above high normal; Status: F Test: BLOOD, URINE BLOOD; Value: 3+; Range: NEGATIVE; Abnormal: Above high normal; Status: F Test: WBC, URINE AUTO; Value: 137; Range: 0-3; Abnormal: Above high normal; Units: /HPF; Status: F Test: RBC, URINE AUTO; Value: TNTC; Range: 0-3; Abnormal: Above high normal; Units: /HPF; Status: F Test: BACTERIA, URINE AUTO; Value: NEGATIVE; Range: NEGATIVE; Status: F Test: SQUAMOUS EPITHELIAL CELL UR AU; Value: 0; Range: 0-6; Units: /HPF; Status: F Test: MUCUS, URINE; Value: SMALL; Range: NEGATIVE; Status: F Test: HYALINE CAST, URINE AUTO; Value: 0; Range: 0-1; Units: /LPF; Status: F Test: CALCIUM OXALATE CRYSTALS; Value: SMALL; Range: NONE; Status: F Radiology Order: EKG-ADULT Test: EKG-ADULT REASON FOR EXAMINATION: dizzy; Stationary ECG Study; [facility] - ED; ; Test Date: 2016-09-01; Pat Name: JERRY ASHLEY Department:; Room: -; Gender: M 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 Fall.; ; Comparison: None .; ; Findings:; The mediastinum and cardiac silhouette are stable and within normal limits for; portable technique. The lung campoverde are clear without acute consolidation,; effusion, or pneumothorax. Skeletal structures are intact. Widening to the left; acromioclavicular joint is similar to prior CT dated 10/27/2015.; ; Impression:; No acute cardiopulmonary process appreciated.; ; ; Signed by; Tejas Tristan MD 09/01/2016 12:28 P; Radiology Order: CT Head Without Contrast Test: CT Head Without Contrast REASON FOR EXAMINATION: dizzy, fall; CT HEAD WITHOUT CONTRAST:; ; HISTORY: Fall.; ; Areas of decreased attentuation are present in the periventricular white matter.; This represents small vessel ischemic disease. There is no intraparenchymal; hemorrhage, mass, or midline shift. The ventricular system and cortical sulci as; well as subarachnoid space in the posterior fossa are dilated consistent with; mild volume loss. There is no extracerebral collection. There is no fracture.; The visualized sinuses are clear.; ; IMPRESSION:; ; 1. Small vessel ischemic disease.; ; 2. Mild volume loss.; ; ; Signed by; Jose Alejandro Belcher MD 09/01/2016 01:01 P; Radiology Order: Knee, Complete Test: Knee, Complete REASON FOR EXAMINATION: Trauma; Clinical: Trauma.; ; Technique: AP, lateral, bilateral oblique and sunrise views of the left knee.; ; Findings:; Osteopenia and age-related degenerative changes including medial and; patellofemoral joint space compartment narrowing with subchondral sclerosis is; appreciated. No acute fracture dislocation. No effusion.; ; Impression: Osteopenia and degenerative changes. No acute fracture or; dislocation.; ; ; Signed by; Tejas Tristan MD 09/01/2016 01:55 P; Outcome: 14:18 Decision to Hospitalize by Provider. br1 21:23 Discharge Assessment: Patient awake, alert and oriented x 3. No cognitive and/or jp6 functional deficits noted. Patient verbalized understanding of disposition instructions. patient administered narcotics - no. The following High Risk Discharge criteria are identified: None. Admitted to Med/Surg accompanied by tech, via stretcher, with chart. Condition: unchanged. No special radiology studies were completed. Admission hand-off: Report Faxed Fax receipt verified by Delio Moran. Property :Personal belongings accompany Pt. 09/02 01:54 Patient left the ED. jp6 Signatures: Dispatcher [employer] EDMS Rebel LealRN Emily Nick RN Lidia Vidal mcp, Floyd Delgadillo MD MD br1 Amy Montoya RN RN dsBecki Huggins cmb Damir Gandara, JBOSS ARCHITECT JBOSS ARCHITECT jlf Raul Ralph,RN RN mb9 Deena Petersen RN RN kc3 Franklin Mckay,RN RN jf3 Senait Garcia,RN RN jp6 Ramesh Boo, Reg Reg pm4 MTDD
[2016-09-02 02:05] VITALS: BP 133/72
[2016-09-02 06:00] VITALS: BP_SYST 104; BP_SYST 145; BP_SYST 81; BP_DIAS 41; BP_DIAS 53; BP_DIAS 60
[2016-09-02] MEDS: NS 1,000 ML IV SCH (06:08)
[2016-09-02 06:48] LABS: BASO % 0.3 % (0.0-1.0); EOS # 0.4 K/mm3 (0.0-0.50); EOS % 5.8 % (0.0-3.0); LARGE UNSTAINED CELL # 0.2 K/mm3 (0.0-0.4); LYMPH # 2.7 K/mm3 (1.5-4.5); LYMPH % 33.7 % (24.0-44.0); MEAN CORPUSCULAR HEMOGLOBIN 31.2 pg (27.0-33.0); MEAN CORPUSCULAR HGB CONC 33.3 g/dl (32.0-36.5); MEAN CORPUSCULAR VOLUME 93.7 fl (80.0-96.0); MONO # 0.6 K/mm3 (0.0-0.8); MONO % 7.3 % (0.0-5.0); NEUTROPHILS # 3.9 K/mm3 (1.8-7.7); NEUTROPHILS % 49.9 % (36.0-66.0); PLATELET COUNT, AUTOMATED 505 k/mm3 (150-450); RED CELL DISTRIBUTION WIDTH 13.1 % (11.5-14.5); WHITE BLOOD COUNT 7.8 K/mm3 (4.0-10.0)
[2016-09-02 07:08] LABS: ALBUMIN 2.9 GM/DL (3.2-5.2); ALBUMIN/GLOBULIN RATIO 0.94 (1.00-1.93); ALKALINE PHOSPHATASE 76 U/L (45-117); ALT/SGPT 14 U/L (12-78); ANION GAP 6 MEQ/L (8-16); AST/SGOT 14 U/L (15-37); BILIRUBIN,TOTAL 0.2 MG/DL (0.2-1.0); BLOOD UREA NITROGEN 15 MG/DL (7-18); CALCIUM LEVEL 8.2 MG/DL (8.8-10.2); CARBON DIOXIDE LEVEL 27 MEQ/L (21-32); CHLORIDE LEVEL 108 MEQ/L (98-107); CREATININE FOR GFR 0.73 MG/DL (0.70-1.30); GLOMERULAR FILTRATION RATE > 60.0 (>42); GLUCOSE, FASTING 111 MG/DL (83-110); POTASSIUM SERUM 3.7 MEQ/L (3.5-5.1); SODIUM LEVEL 141 MEQ/L (136-145)
[2016-09-02] MEDS ORDERED: NON-FORMULARY COMPOUNDED MEDICATION PO SCH (09:00)
[2016-09-02] MEDS: VITAMIN B COMPLEX/VIT C CAP PO SCH (10:02)
[2016-09-02] MEDS: VITAMIN D 1,000 INTERNATIONAL UNITS TABLET PO SCH (10:03)
[2016-09-02] MEDS: OCUVITE 1 TAB PO SCH (10:03)
[2016-09-02] MEDS: CO-ENZYME Q10 50 MG CAP PO SCH (10:03)
[2016-09-02] MEDS: NORTRIPTYLINE 25 MG CAP PO SCH ×2 (10:03→21:09)
[2016-09-02] MEDS: CEFUROXIME 250 MG TAB PO SCH ×2 (10:03→21:09)
[2016-09-02] MEDS: ENOXAPARIN 30 MG/0.3 ML SYR (J1650) SC SCH (10:04)
[2016-09-02] MEDS: ENZALUTAMIDE 40 MG PO SCH (12:51)
[2016-09-02 14:00] VITALS: BP_SYST 120; BP_SYST 130; BP_SYST 135; BP_DIAS 67; BP_DIAS 72
[2016-09-02] MEDS ORDERED: NS 1,000 ML IV SCH (14:00)
--- NOTE | 2016-09-02 14:47 | IPNPDOC ---
Assessment/Plan Date Seen The patient was seen on 09/02/16. Plan / VTE VTE Prophylaxis Ordered?: Yes Plan Plan Text Orthostatic hypotension possibly 2/2 Volume Depletion Cont with IVF. Will Monitor Orthostatic vital signs. Hold antihypertensives. No overt signs or sources of infection identified Physical Therapy ordered Status post fall/left knee pain. XR imaging of the Left knee without acute findings Tylenol as needed. Ultram as needed. 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 History of prostate cancer with bone metastasis Follows with Dr. Prakash as outpatient. Doxazosin. Hyperlipidemia Statin Hypertension Metoprolol/HCTZ on hold 2/2 Orthostatic Hypotension DVT prophylaxis SCD/TEDS Subjective Review of Systems CC/HPI The patient is a 76-year-old male admitted with a reason for visit of General Weakness. General: Reports: Fatigue, Denies: Chills Constitutional: Denies: Chills, Fever Eyes: Denies: Pain, Vision change ENT: Denies: Ear Pain, Head Aches Skin: Denies: Lesions, Rash Pulmonary: Denies: Cough, Dyspnea Cardiovascular: Denies: Chest Pain, Palpitations Gastrointestinal: Denies: Abdominal Pain, Nausea, Vomiting Hematologic: Denies: Bleeding Excessively, Bruising Objective Physical Examination General Exam: Positive: Alert, Cooperative, No Acute Distress ENT Exam: Positive: Atraumatic, Mucous membr. moist/pink Chest Exam: Positive: Clear to auscultation, Normal air movement Heart Exam: Positive: Normal S1, Normal S2, Rate Normal Abdomen Exam: Positive: Soft, Negative: Hepatospenomegaly, Tenderness Extremity Exam: Negative: Swelling, Tenderness Skin Exam: Positive: Other skin issue (skin around the urostomy site on the right noted to be clean dry and intact.) Vital Signs/I&O Vital Signs Date Time Temp Pulse Resp B/P Pulse Ox O2 Delivery O2 Flow Rate FiO2 09/02/16 06:00 125 81/41 09/02/16 06:00 98.9 18 98 Room Air I&O- Last 24 Hours up to 6 AM 09/02/16 06:00 Intake Total 120 ml Output Total 450 ml Balance -330 ml Laboratory Data Labs 24H Laboratory Tests 2 09/02/16 06:13: Blood Urea Nitrogen 15, Creatinine 0.73, Sodium Level 141, Potassium Level 3.7, Chloride Level 108H, Carbon Dioxide Level 27, Calcium Level 8.2L, Aspartate Amino Transf (AST/SGOT) 14L, Alanine Aminotransferase (ALT/SGPT) 14, Alkaline Phosphatase 76, Total Bilirubin 0.2, Total Protein 6.0#L, Albumin 2.9L, Albumin/ Globulin Ratio 0.94L, Anion Gap 6L, White Blood Count 7.8, Red Blood Count 3.54L , Hemoglobin 11.0L, Hematocrit 33.2L, Mean Corpuscular Volume 93.7, Mean Corpuscular Hemoglobin 31.2, Mean Corpuscular Hemoglobin Concent 33.3, Red Cell Distribution Width 13.1, Platelet Count 505H, Neutrophils (%) (Auto) 49.9, Lymphocytes (%) (Auto) 33.7, Monocytes (%) (Auto) 7.3H, Eosinophils (%) (Auto) 5.8H, Basophils (%) (Auto) 0.3, Neutrophils # (Auto) 3.9, Lymphocytes # (Auto) 2.7, Monocytes # (Auto) 0.6, Eosinophils # (Auto) 0.4, Basophils # (Auto) 0.0, Glomerular Filtration Rate > 60.0, Large Unclassified Cells # 0.2, Large Unclassified Cells % 3.0 CBC/BMP Laboratory Tests 09/02/16 06:13 Calcium Level 8.2 L, Aspartate Amino Transf (AST/SGOT) 14 L, Alanine Aminotransferase (ALT/SGPT) 14, Alkaline Phosphatase 76, Total Bilirubin 0.2, Total Protein 6.0 #L, Albumin 2.9 L, Red Blood Count 3.54 L, Mean Corpuscular Volume 93.7, Mean Corpuscular Hemoglobin 31.2, Mean Corpuscular Hemoglobin Concent 33.3, Red Cell Distribution Width 13.1, Neutrophils (%) (Auto) 49.9, Lymphocytes (%) (Auto) 33.7, Monocytes (%) (Auto) 7.3 H, Eosinophils (%) (Auto) 5.8 H, Basophils (%) (Auto) 0.3, Neutrophils # (Auto) 3.9, Lymphocytes # (Auto) 2.7, Monocytes # (Auto) 0.6, Eosinophils # (Auto) 0.4, Basophils # (Auto) 0.0 Microbiology Microbiology 09/02/16 Respiratory Virus Panel (PCR) ([facility]) - Final, Complete 09/01/16 Urine Culture - Final, Complete MERY PASCUAL MD Sep 02, 2016 14:47
[2016-09-02 18:00] VITALS: BP_SYST 122; BP_SYST 140; BP_SYST 144; BP_DIAS 68; BP_DIAS 70
[2016-09-02] MEDS ORDERED: ASPIRIN 81 MG ENTERIC TAB PO SCH (18:00)
[2016-09-02] MEDS: SIMVASTATIN 20 MG TAB PO SCH (21:09)
[2016-09-02 22:00] VITALS: BP_SYST 140; BP_SYST 142; BP_DIAS 68; BP_DIAS 70
[2016-09-03 02:00] VITALS: BP_SYST 124; BP_SYST 137; BP_SYST 142; BP_DIAS 58; BP_DIAS 60; BP_DIAS 62
[2016-09-03 06:00] VITALS: BP_SYST 126; BP_SYST 140; BP_SYST 158; BP_DIAS 60; BP_DIAS 62; BP_DIAS 70
[2016-09-03] MEDS: VITAMIN B COMPLEX/VIT C CAP PO SCH (08:30)
[2016-09-03] MEDS: VITAMIN D 1,000 INTERNATIONAL UNITS TABLET PO SCH (08:30)
[2016-09-03] MEDS: CO-ENZYME Q10 50 MG CAP PO SCH (08:30)
[2016-09-03] MEDS: NORTRIPTYLINE 25 MG CAP PO SCH (08:31)
[2016-09-03] MEDS: OCUVITE 1 TAB PO SCH (08:31)
[2016-09-03] MEDS: ENOXAPARIN 30 MG/0.3 ML SYR (J1650) SC SCH (08:38)
[2016-09-03] MEDS: ENZALUTAMIDE 40 MG PO SCH (08:39)
[2016-09-03] MEDS: CEFUROXIME 250 MG TAB PO SCH (11:32)
--- NOTE | 2016-09-03 16:18 | DS.PDOC ---
Discharge Summary General Date of Admission Sep 01, 2016 at 14:18 Date of Discharge Sep 03, 2016 at 13:35 Discharge Summary PROCEDURES PERFORMED DURING STAY: None. COMPLICATIONS/CHIEF COMPLAINT: General Weakness ADMISSION DIAGNOSES: 1. . Orthostatic hypotension DISCHARGE DIAGNOSES: 1. . Orthostatic hypotension HISTORY OF PRESENT ILLNESS: 76-year-old male with past medical history of hypertension, dyslipidemia, metastatic prostate cancer, recent right sided hydroureteronephrosis status post double-J stent placement at [facility] one week ago presented to the ER with a chief complaint of weakness. The patient states that upon getting up from a sitting position he has had multiple falls, including one occasion at which time he had trauma to the left knee. He denies losing consciousness, head injury, syncopal episode, palpitations, chest pain area and he denies any other complaints of fevers, chills, weakness, headaches, cough, abdominal pain, or any nausea/vomiting/diarrhea. In the ER, the patient was found to have orthostatic hypotension with his blood pressure dropping into the 80s systolic over 50s diastolic. The hospitalist team was called for further evaluation and management of the patient's orthostatic hypotension. During the patient's hospitalization here, he was starting IV fluid hydration. This appeared to improve the patient's orthostatic hypotension, and he noted feeling better. A x-ray of the left knee was done and revealed no acute fracture or dislocation. The patient did not have any signs or symptoms, or laboratory studies suggestive of any underlying infectious etiology. The patient was cleared by physical therapy for discharge home. DISCHARGE MEDICATIONS: Please see below. ALLERGIES: Please see below. PHYSICAL EXAMINATION ON DISCHARGE: VITAL SIGNS: Please see below. General Exam: Positive: Alert, Cooperative, No Acute Distress ENT Exam: Positive: Atraumatic, Mucous membr. moist/pink Chest Exam: Positive: Clear to auscultation, Normal air movement Heart Exam: Positive: Normal S1, Normal S2, Rate Normal Abdomen Exam: Positive: Soft, Negative: Hepatospenomegaly, Tenderness Extremity Exam: Negative: Swelling, Tenderness Skin Exam: Positive: Other skin issue (skin around the urostomy site on the right noted to be clean dry and intact.) LABORATORY DATA: Please see below. IMAGING: HISTORY: Fall. Areas of decreased attentuation are present in the periventricular white matter. This represents small vessel ischemic disease. There is no intraparenchymal hemorrhage, mass, or midline shift. The ventricular system and cortical sulci as well as subarachnoid space in the posterior fossa are dilated consistent with mild volume loss. There is no extracerebral collection. There is no fracture. The visualized sinuses are clear. IMPRESSION: 1. Small vessel ischemic disease. 2. Mild volume loss. VTE Prophylaxis ordered?: Yes DISCHARGE CONDITION: Medically stable DISPOSITION: Home Health Service ACTIVITY: As tolerated DIET: 2 g low sodium diet ITEMS TO FOLLOWUP ON OUTPATIENT: 1. . Follow-up with primary care physician within one week 2. . Follow-up with urology for management of double-J stent, urostomy 3. . Follow-up with heme/onc management of metastatic prostate cancer TIME SPENT ON DISCHARGE: Greater than 30 minutes. Vital Signs/I&Os Vital Signs Date Time Temp Pulse Resp B/P Pulse Ox O2 Delivery O2 Flow Rate FiO2 09/03/16 06:00 82 140/60 09/03/16 06:00 96.5 18 97 Room Air I&O- Last 24 Hours up to 6 AM 09/03/16 06:00 Intake Total 3860 ml Output Total 2800 ml Balance 1060 ml Microbiology Microbiology 09/02/16 Respiratory Virus Panel (PCR) (LORRI) - Final, Complete 09/01/16 Urine Culture - Final, Complete Medications Scheduled (Co Q-10) 200 Mg Cap 200 MG PO DAILY Aspirin (Aspirin 81) 81 Mg Tab 162 MG PO DAILY B1/B2/B3/B5/B6 (Vitamin B Complex) 1 Tab Tab 1 TAB PO DAILY Calcium/Vitamin D (Oyster Shell Calcium + 500-200 mg-Unit) 1 Tab Tab 1 TAB PO DAILY Cholecalciferol (Vitamin D) 1,000 Unit Tab 1,000 UNIT PO DAILY Doxazosin Mesylate (Doxazosin Mesylate) 8 Mg Tab 8 MG PO QPM Enzalutamide Base (Xtandi) 40 Mg Cap 120 MG PO DAILY Hydrochlorothiazide (Hydrochlorothiazide) 25 Mg Tab 25 MG PO DAILY Leuprolide Acetate (Lupron Depot) 45 Mg Inj 45 MG IM ASDIRECTED EVERY 6 MONTHS: DUE DECEMBER 2016 Metoprolol Tartrate (Metoprolol Tartrate) 25 Mg Tab 25 MG PO BID Multivitamins (Ocuvite) 1 Tab Tab 1 TAB PO DAILY Nortriptyline HCl (Nortriptyline HCl) 25 Mg Cap 25 MG PO BID Simvastatin (Simvastatin) 20 Mg Tab 20 MG PO QPM Scheduled PRN Docusate Sodium (Colace) 100 Mg Cap 100 MG PO DAILY PRN PRN CONSTIPATION Ondansetron HCl (Zofran) 8 Mg Tab 8 MG PO TID PRN PRN NAUSEA OR VOMITING Polyethylene Glycol (Miralax) 1 17 GM PO DAILY PRN PRN CONSTIPATION Tramadol HCl (Tramadol HCl) 50 Mg Tab 50 MG PO Q6H PRN PRN PAIN Allergies Coded Allergies: No Known Drug Allergy (Verified Allergy, Unknown, 11/27/12) MERY PASCUAL MD Sep 03, 2016 16:18
--- NOTE | 2016-09-04 02:55 | EDDOCDS ---
Physician Documentation [facility] Name: Jerry Ashley Age: 76 yrs Sex: Male : 1940 Arrival Date: 09/01/2016 Time: 10:58 Bed Admit Hold Private MD: Darrell Dominguez Disposition: 09/01/16 14:18 Hospitalization ordered by Aixa Barraza for Inpatient Admission. Preliminary diagnosis are Syncope and collapse, Orthostatic hypotension, Unspecified right bundle-branch block. - Bed requested for 5 Moran. - Status is Inpatient Admission. jp6 - Condition is Stable. - Problem is new. - Symptoms are unchanged. Historical: - Allergies: no known allergies; - Home Meds: 1. doxazosin 8 mg oral tr24 1 tab once daily (Last dose: 08/31/2016) 2. metoprolol tartrate 25 mg Oral tab 1 tab 2 times per day (Last dose: 09/01/2016) 3. simvastatin 20 mg Oral tab 1 tab once daily (Last dose: 08/31/2016) 4. aspirin 162 mg Oral TbEC 1 tab once daily (Last dose: 09/01/2016) 5. Vitamin D 1000 units Oral daily (Last dose: 09/01/2016) 6. vitamin B complex oral cap 500 mg daily (Last dose: 09/01/2016) 7. CoQ-10 oral 200 mg oral daily (Last dose: 09/01/2016) 8. hydrochlorothiazide 25 mg Oral tab 1 tab once daily (Last dose: 09/01/2016) 9. Colace oral Unknown oral prn as needed 10. nortriptyline 25 mg Oral cap 1 cap 2 times per day (Last dose: 09/01/2016) 11. Lupron Depot (6 Month) 45 mg intramuscular sykt every 6 months (Last dose: 08/01/2016) 12. Xtandi 40 mg oral cap 3 caps once daily (Last dose: 09/01/2016) 13. ondansetron HCl 8 mg Oral tab 1 tab prn 14. tramadol 50 mg Oral tab 1 tab (Last dose: Unknown) - PMHx: prostate cancer; Diabetes - NIDDM: controlleddietary controlled; spondylosis; kidney blockage; sepsis; pleural effusion; - PSHx: Rotator Cuff Repair- Left; circumcision (2008); Carotid surgery; Cataract Surgery- Bilateral; double J stent; - Social history: Smoking status: Patient states former smoker of tobacco. No barriers to communication noted. - Family history: Not pertinent. - : The pt / caregiver states he / she is not on anticoagulants. Home medication list is obtained from the patient. - Exposure Risk Screening:: None identified. Vital Signs: 09/01 11:00 BP 98 / 56; Pulse 83; Resp 18; Temp 98.3(O); Pulse Ox 100% ; Weight 88.45 kg / 195 lbs; cmb Height 6 ft. 2 in. (187.96 cm); Pain 0/10; 13:34 BP 135 / 64 Supine; Pulse 62; jmk 13:34 BP 99 / 50 Sitting; Pulse 69; jmk 13:35 BP 93 / 53 Standing; Pulse 74; jmk 19:17 BP 144 / 63 (auto/); jp6 19:17 Pulse 70 MON; Pulse Ox 97% ; jp6 23:11 BP 135 / 63; Pulse 77; Resp 16; Temp 99.7; Pulse Ox 96% on R/A; Pain 0/10; jp6 11:00 Body Mass Index 25.04 (88.45 kg, 187.96 cm) cmb MDM: 11:52 IV Saline Lock ordered. ml 11:52 [employer] Specialist/Pulse Ox/q 15 min VS ordered. ml 11:52 Rhythm Strip to chart ordered. ml 11:52 Orthostatic VS ordered. ml 11:52 NS 0.9% 500 ml IV at bolus once ordered. ml 11:53 ECG WITH READING ER PHYS+CARDIAG ordered. EDMS 11:54 CBC with Diff Ordered. EDMS 11:54 MED Profile Ordered. EDMS 11:54 CIP Ordered. EDMS 11:54 Troponin Ordered. EDMS 11:54 Liver Profile Ordered. EDMS 11:54 Chest, 1 View Ordered. EDMS 11:54 CT Head Without Contrast Ordered. EDMS 13:18 Knee, Complete Ordered. EDMS 13:57 Financial registration complete. pm4 13:59 NS 0.9% 500 ml IV at bolus once ordered. br1 14:00 CBC with Diff Reviewed. br1 14:00 MED Profile Reviewed. br1 14:00 CIP Reviewed. br1 14:00 Liver Profile Reviewed. br1 14:00 Troponin Reviewed. br1 14:00 Chest, 1 View Reviewed. br1 14:00 CT Head Without Contrast Reviewed. br1 14:10 cefUROXime 250 mg PO once ordered. br1 14:10 BED REQUEST+ADM ordered. EDMS 14:15 Urinalysis Ordered. EDMS 14:15 Urine Culture Ordered. EDMS 14:23 PHYSICAL THERAPY EVAL & TREAT ordered. EDMS 14:24 Admission / Observation Status ordered. EDMS 14:24 NO ADDED SALT DIET ordered. EDMS 14:49 [facility] [place] Payment Agreement was scanned into [employer] and attached to record. pm4 15:05 NS 0.9% 1000 ml IV at 100 mL/hr continuous ordered. k 15:07 T-Sheet-- Draft Copy was scanned into [employer] and attached to record. gb 19:33 CBC WITH DIFFERENTIAL Ordered. EDMS 19:33 COMPLETE COMPHRENSIVE METABOLI Ordered. EDMS 09/02 10:06 ECG/EKG was scanned into [employer] and attached to record. gb 10:07 Trend VS was scanned into [employer] and attached to record. gb Administered Medications: 09/01 12:21 Drug: NS 0.9% 500 ml Route: IV; Rate: bolus; Site: left antecubital; k 14:34 Drug: NS 0.9% 500 ml Route: IV; Rate: bolus; Site: left antecubital; jmk 15:06 Follow up: IV Status: Completed infusion jmk 15:03 Drug: cefUROXime 250 mg Route: PO; jmk 15:05 Drug: NS 0.9% 1000 ml Route: IV; Rate: 100 mL/hr; Site: left antecubital; k Signatures: Dispatcher [employer] EDMS Zaid James MD MD ml Rebel Leal,RN RN jmk Lidia Condon, Reg Reg gb Lester Youngbeth, Craft Artist Unit ml3 Floyd Rodrigues MD MD br1 Raul Ralph,RN RN mb9 Senait GarciaRN RN jp6 Ramesh Boo, Reg Reg pm4 The chart was reviewed and I authenticate all verbal orders and agree with the evaluation and treatment provided.Corrections: (The following items were deleted from the chart) 14:32 14:24 BASIC METABOLIC PROFILE ordered. EDMS EDMS 14:32 14:25 CBC WITH DIFFERENTIAL ordered. EDMS EDMS Attachments: 14:49 [facility] Payment Agreement pm4 15:07 T-Sheet-- Draft Copy gb 09/02 10:06 ECG/EKG gb Chart Complete MTDD
--- NOTE | 2016-09-04 02:55 | EDDOCDS ---
Nurse's Notes [facility] Name: Jerry Ashley Age: 76 yrs Sex: Male : 1940 Arrival Date: 09/01/2016 Time: 10:58 Bed Admit Hold Private MD: Darrell Dominguez Diagnosis: Syncope and collapse;Orthostatic hypotension;Unspecified right bundle-branch block Presentation: 09/01 11:11 Presenting complaint: Patient states: "I'm awful weak and I fell 3 times this morning". mb9 pt reports all 3 falls resulted after standing up from a sitting position. pt denies dizziness, headache, or chest pain. pt reports feeling weak and dizzy. pt's reports pt was discharged from [facility] in [place] 1 week ago after having a, "double J tube" placed after having a kidney blockage. Adult Sepsis Screening: The patient does not have new or worsening altered mentation. Patient's respiratory rate is less than 22. Systolic blood pressure is greater than 100. Patient has a qSOFA score of 1- Negative Sepsis Screen. Suicide/Homicide risk assessment- the patient denies having any suicidal and/or homicidal ideations and does not present with any other emotional, behavioral or mental health complaints. Status: Patient is not a clinical services assistant or dependent. Transition of care: patient was not received from another setting of care. 11:11 Acuity: TONO Level 3 mb9 11:11 Method Of Arrival: Walkin/Carried/Asstd mb9 Triage Assessment: 11:32 General: Appears in no apparent distress, Behavior is appropriate for age, cooperative. mb9 Pain: Location: medial aspect of left thigh Pain currently is 6 out of 10 on a pain scale. Neurological: Level of Consciousness is awake, alert, Oriented to person, place, time, Speech is normal, Facial symmetry appears normal. Respiratory: Airway is patent Respiratory effort is even, unlabored. Historical: - Allergies: no known allergies; - Home Meds: 1. doxazosin 8 mg oral tr24 1 tab once daily (Last dose: 08/31/2016) 2. metoprolol tartrate 25 mg Oral tab 1 tab 2 times per day (Last dose: 09/01/2016) 3. simvastatin 20 mg Oral tab 1 tab once daily (Last dose: 08/31/2016) 4. aspirin 162 mg Oral TbEC 1 tab once daily (Last dose: 09/01/2016) 5. Vitamin D 1000 units Oral daily (Last dose: 09/01/2016) 6. vitamin B complex oral cap 500 mg daily (Last dose: 09/01/2016) 7. CoQ-10 oral 200 mg oral daily (Last dose: 09/01/2016) 8. hydrochlorothiazide 25 mg Oral tab 1 tab once daily (Last dose: 09/01/2016) 9. Colace oral Unknown oral prn as needed 10. nortriptyline 25 mg Oral cap 1 cap 2 times per day (Last dose: 09/01/2016) 11. Lupron Depot (6 Month) 45 mg intramuscular sykt every 6 months (Last dose: 08/01/2016) 12. Xtandi 40 mg oral cap 3 caps once daily (Last dose: 09/01/2016) 13. ondansetron HCl 8 mg Oral tab 1 tab prn 14. tramadol 50 mg Oral tab 1 tab (Last dose: Unknown) - PMHx: prostate cancer; Diabetes - NIDDM: controlleddietary controlled; spondylosis; kidney blockage; sepsis; pleural effusion; - PSHx: Rotator Cuff Repair- Left; circumcision (2008); Carotid surgery; Cataract Surgery- Bilateral; double J stent; - Social history: Smoking status: Patient states former smoker of tobacco. No barriers to communication noted. - Family history: Not pertinent. - : The pt / caregiver states he / she is not on anticoagulants. Home medication list is obtained from the patient. - Exposure Risk Screening:: None identified. Screenin:17 Screening information is obtained from the patient. Fall risk: At risk due to prior 6 history of falls. Assistance ADL's: requires no assistance with activities of daily living. Abuse/DV Screen: The patient / caregiver reports he/she is: not in a situation that causes fear, pain or injury. Nutritional screening: No deficits noted. home support is adequate. 23:11 Advance Directives: Currently, there is no health care proxy. There is no active DNR [facility] order. There is no living will. Assessment: 12:22 General: Appears in no apparent distress, pleasant and conversive. moist pink oral jmk mucosa. without resp distress or work of breathing. chest CTA. abd soft and non distended with bowel sounds present x 4. urostomy tube intact to right flank area. 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 13:31 General: Appears bolus infused without event. Orthostat vs obtained. dizzy/light headed jmk with change in position. stood for seconds duration, and then assisted to supine position. 17:34 General: Appears remains pleasant and conversive without complaints. No additonal jmk challenge with physical activity. Monitor has remained as sr. IV infusing at 100ml/hr: site clear. without new complaints. awaiting admission. Neurological: No deficits noted. Cardiovascular: Capillary refill < 3 seconds Clubbing of nail beds is absent Heart tones S1 S2 present Edema is absent. Rhythm is regular. Respiratory: No deficits noted. Airway is patent Respiratory effort is even, unlabored, Respiratory pattern is regular, Breath sounds are clear bilaterally. 18:33 General: Appears diet provided and very receptive. facial color has improved. Jovial jmk and conversive. Patiently awaiting bed avail.. 19:30 General: Appears in no apparent distress, comfortable, unkempt, Behavior is appropriate jp6 for age, cooperative, pleasant. Pain: Location: left leg-left knee Pain currently is 4 out of 10 on a pain scale. Neurological: No deficits noted. Level of Consciousness is awake, alert, Oriented to person, place, time. EENT: No deficits noted. Cardiovascular: No deficits noted. Capillary refill < 3 seconds Heart tones S1 S2 present Edema is absent. Rhythm is sinus rhythm No ectopy. Respiratory: No deficits noted. Airway is patent Respiratory effort is even, unlabored, Respiratory pattern is regular, Breath sounds are clear bilaterally. GI: No deficits noted. Abdomen is flat, non- distended Bowel sounds present X 4 quads. : No deficits noted. Derm: No deficits noted. Skin is pink, warm & dry. Musculoskeletal: No deficits noted. 21:18 Reassessment: Patient states symptoms have improved. General: Appears in no apparent jp6 distress, comfortable, Behavior is appropriate for age, cooperative. Pain: Denies pain. Neurological: No deficits noted. EENT: No deficits noted. Cardiovascular: No deficits noted. Respiratory: Airway is patent Respiratory effort is even, unlabored, Respiratory pattern is regular, symmetrical. GI: No deficits noted. : No deficits noted. Derm: Skin is pink, warm & dry. 22:00 Reassessment: Patient appears in no apparent distress at this time. Patient denies pain jp6 at this time. Neurological: No deficits noted. EENT: No deficits noted. Cardiovascular: No deficits noted. Respiratory: Airway is patent Respiratory effort is even, unlabored, Respiratory pattern is regular, symmetrical. Derm: Skin is pink, warm & dry. 23:11 Reassessment: Patient appears in no apparent distress at this time. Patient denies pain jp6 at this time. General: Appears in no apparent distress, comfortable, Behavior is appropriate for age, cooperative. Neurological: Level of Consciousness is awake, alert, Oriented to person, place, time. EENT: No deficits noted. Cardiovascular: No deficits noted. Respiratory: No deficits noted. Airway is patent Respiratory effort is even, unlabored, Respiratory pattern is regular, symmetrical, Breath sounds are clear. : Urine is tea colored. Derm: Skin is pink, warm & dry. 09/02 00:24 Reassessment: Patient appears in no apparent distress at this time. General: Appears to jp6 be sleeping. Vital Signs: 09/01 11:00 BP 98 / 56; Pulse 83; Resp 18; Temp 98.3(O); Pulse Ox 100% ; Weight 88.45 kg; Height 6 cmb ft. 2 in. (187.96 cm); Pain 0/10; 13:34 BP 135 / 64 Supine; Pulse 62; jmk 13:34 BP 99 / 50 Sitting; Pulse 69; jmk 13:35 BP 93 / 53 Standing; Pulse 74; jmk 19:17 BP 144 / 63 (auto/); jp6 19:17 Pulse 70 MON; Pulse Ox 97% ; jp6 23:11 BP 135 / 63; Pulse 77; Resp 16; Temp 99.7; Pulse Ox 96% on R/A; Pain 0/10; jp6 11:00 Body Mass Index 25.04 (88.45 kg, 187.96 cm) cmb Vitals: 11:00 Log In Time: September 01, 2016 at 10:58. b ED Course: 10:59 Patient visited by Becki Jane. cmb 10:59 Patient moved to Waiting b 11:00 Darrell Dominguez is Private Physician. cmb 11:02 Patient moved to Pre RCE cmb 11:15 Triage Initiated mb9 11:33 Patient moved to Triage 1 jf3 11:34 Patient moved to Pre RCE jf3 11:36 Patient moved to 17 dsf 12:09 Patient visited by Damir Gandara PCA. jlf 12:09 Patient visited by Damir Gandara PCA. jlf 12:09 EKG done. (by ED staff). Reviewed by Zaid James MD. jlf 12:17 Liver Profile Sent. kc3 12:17 Troponin Sent. kc3 12:17 CIP Sent. kc3 12:17 MED Profile Sent. kc3 12:17 CBC with Diff Sent. kc3 12:22 Inserted saline lock: 20 gauge in left antecubital area. jmk 12:28 Patient visited by Damir Gandara PCA. jlf 12:38 Floyd Rodrigues MD is Attending Physician. br1 12:59 Patient visited by Damir Gandara PCA. jlf 13:15 Chest, 1 View Returned. EDMS 13:15 CT Head Without Contrast Returned. EDMS 13:16 Patient visited by Floyd Rodrigues MD. br1 14:08 Patient visited by Floyd Rodrigues MD. br1 14:11 Knee, Complete Returned. EDMS 14:18 Aixa Barraza is Hospitalizing Provider. br1 14:34 Urinalysis Sent. jmk 14:34 Urine Culture Sent. jmk 14:40 Patient name changed from Jerry\\S\\\\S\\Ashley\\S\\ to Jerry\\S\\ \\S\\Ashley. EDMS 14:49 [facility] Payment Agreement was scanned into PhoneAnd[employer] and attached to record. pm4 15:07 T-Sheet-- Draft Copy was scanned into [employer]And[employer] and attached to record. gb 17:16 Patient moved to Admit Hold [facility] 19:08 Senait Garcia,RN is Primary Nurse. jp6 19:13 EKG-ADULT Returned. EDMS 19:17 The patient / caregiver is instructed regarding the plan of care and ED course. Cardiac jp6 monitor on. Pulse ox on. NIBP on. 21:18 No procedures done that require assistance. jp6 09/02 10:06 ECG/EKG was scanned into [employer] and attached to record. gb 10:07 Trend VS was scanned into [employer]And[employer] and attached to record. gb Administered Medications: 09/01 12:21 Drug: NS 0.9% 500 ml Route: IV; Rate: bolus; Site: left antecubital; k 14:34 Drug: NS 0.9% 500 ml Route: IV; Rate: bolus; Site: left antecubital; amberk 15:06 Follow up: IV Status: Completed infusion amberk 15:03 Drug: cefUROXime 250 mg Route: PO; ekegan 15:05 Drug: NS 0.9% 1000 ml Route: IV; Rate: 100 mL/hr; Site: left antecubital; royal Attachments: 10:07 Trend VS gb Order Results: Lab Order: CBC with Diff; SPEC'M 09/01/16 12:14 Test: WHITE BLOOD COUNT; Value: 10.8; Range: 4.0-10.0; Abnormal: Above high normal; Units: K/mm3; Status: F Test: RED BLOOD COUNT; Value: 4.16; Range: 4.30-6.10; Abnormal: Below low normal; Units: M/mm3; Status: F Test: HEMOGLOBIN; Value: 12.6; Range: 14.0-18.0; Abnormal: Below low normal; Units: g/dl; Status: F Test: HEMATOCRIT; Value: 38.7; Range: 42.0-52.0; Abnormal: Below low normal; Units: %; Status: F Test: MEAN CORPUSCULAR VOLUME; Value: 93.0; Range: 80.0-96.0; Units: fl; Status: F Test: MEAN CORPUSCULAR HEMOGLOBIN; Value: 30.3; Range: 27.0-33.0; Units: pg; Status: F Test: MEAN CORPUSCULAR HGB CONC; Value: 32.6; Range: 32.0-36.5; Units: g/dl; Status: F Test: RED CELL DISTRIBUTION WIDTH; Value: 14.0; Range: 11.5-14.5; Units: %; Status: F Test: PLATELET COUNT, AUTOMATED; Value: 569; Range: 150-450; Abnormal: Above high normal; Units: k/mm3; Status: F Test: NEUTROPHILS %; Value: 64.9; Range: 36.0-66.0; Units: %; Status: F Test: LYMPH %; Value: 23.7; Range: 24.0-44.0; Abnormal: Below low normal; Units: %; Status: F Test: MONO %; Value: 5.8; Range: 0.0-5.0; Abnormal: Above high normal; Units: %; Status: F Test: EOS %; Value: 3.4; Range: 0.0-3.0; Abnormal: Above high normal; Units: %; Status: F Test: BASO %; Value: 0.5; Range: 0.0-1.0; Units: %; Status: F Test: LARGE UNSTAINED CELL %; Value: 1.8; Range: 0.0-4.0; Units: %; Status: F Test: NEUTROPHILS #; Value: 7.0; Range: 1.8-7.7; Units: K/mm3; Status: F Test: LYMPH #; Value: 2.8; Range: 1.5-4.5; Units: K/mm3; Status: F Test: MONO #; Value: 0.6; Range: 0.0-0.8; Units: K/mm3; Status: F Test: EOS #; Value: 0.4; Range: 0.0-0.50; Units: K/mm3; Status: F Test: BASO #; Value: 0.0; Range: 0.0-0.2; Units: K/mm3; Status: F Test: LARGE UNSTAINED CELL #; Value: 0.2; Range: 0.0-0.4; Units: K/mm3; Status: F Lab Order: [facility]; [facility] 09/01/16 12:14 Test: GLUCOSE, FASTING; Value: 117; Range: 83-110; Abnormal: Above high normal; Units: MG/DL; Status: F Test: BLOOD UREA NITROGEN; Value: 18; Range: 7-18; Units: MG/DL; Status: F Test: CREATININE FOR GFR; Value: 0.94; Range: 0.70-1.30; Units: MG/DL; Status: F Test: GLOMERULAR FILTRATION RATE; Value: > 60.0; Range: >42; Status: F Test: SODIUM LEVEL; Value: 135; Range: 136-145; Abnormal: Below low normal; Units: MEQ/L; Status: F Test: POTASSIUM SERUM; Value: 4.0; Range: 3.5-5.1; Units: MEQ/L; Status: F Test: CHLORIDE LEVEL; Value: 96; Range: 98-107; Abnormal: Below low normal; Units: MEQ/L; Status: F Test: CARBON DIOXIDE LEVEL; Value: 30; Range: 21-32; Units: MEQ/L; Status: F Test: ANION GAP; Value: 9; Range: 8-16; Units: MEQ/L; Status: F Test: CALCIUM LEVEL; Value: 9.1; Range: 8.8-10.2; Units: MG/DL; Status: F Test Note: ; Units are mL/min/1.73 m2 Chronic Kidney Disease Staging per NKF: Stage I & II GFR >=60 Normal to Mildly Decreased Stage III GFR 30-59 Moderately Decreased Stage IV GFR 15-29 Severely Decreased Stage V GFR <15 Very Little GFR Left ESRD GFR <15 on FRUIT DUMPER Lab Order: CIP; SPEC'M 09/01/16 12:14 Test: CPK CREATINE PHOSPHOKINASE; Value: 31; Range: 39-308; Abnormal: Below low normal; Units: U/L; Status: F Test: CK-MB VALUE MASS; Value: 1.0; Range: 0.0-3.6; Units: NG/ML; Status: F Test: MB/CK RELATIVE INDEX; Value: 3.22; Range: < OR =4; Status: F Test Note: ; DIAGNOSIS CRITERIA MMB ng/ml Relative Index (RI) NON-AMI < or = 5 N/A JONES ZONE > 5 < or = 4 AMI > 5 > 4 Lab Order: Troponin; SPEC' 09/01/16 12:14 Test: TROPONIN I; Value: < 0.02; Range: < 0.10; Units: NG/ML; Status: F Test Note: ; Troponin I Reference Interval for [employer] LOCI: 99th Percentile= 0.00-0.045 ng/ml Risk Stratification: <= 0.10 ng/ml Decreased Risk for Adverse Clinical Events. 0.10-1.50 ng/ml Increased Risk for Adverse Clinical Events. Evaluation of additional criterion and/or repeat testing in 2-6 hours is suggested to rule out myocardial damage. >= 1.50 ng/ml Indicative of Myocardial Injury. Lab Order: Liver Profile; SPEC'09/01/16 12:14 Test: AST/SGOT; Value: 19; Range: 15-37; Units: U/L; Status: F Test: ALT/SGPT; Value: 17; Range: 12-78; Units: U/L; Status: F Test: ALKALINE PHOSPHATASE; Value: 83; Range: 45-117; Units: U/L; Status: F Test: BILIRUBIN,TOTAL; Value: 0.4; Range: 0.2-1.0; Units: MG/DL; Status: F Test: BILIRUBIN,DIRECT; Value: 0.1; Range: 0.0-0.2; Units: MG/DL; Status: F Test: TOTAL PROTEIN; Value: 7.7; Range: 6.4-8.2; Units: GM/DL; Status: F Test: ALBUMIN; Value: 3.6; Range: 3.2-5.2; Units: GM/DL; Status: F Test: ALBUMIN/GLOBULIN RATIO; Value: 0.88; Range: 1.00-1.93; Abnormal: Below low normal; Status: F Lab Order: Urinalysis; SPEC'M 09/01/16 14:31 Test: APPEARANCE, URINE; Value: HAZY; Range: CLEAR; Status: F Test: COLOR, URINE; Value: YELLOW; Range: YELLOW; Status: F Test: PH,URINE; Value: 6.0; Range: 5.0-9.0; Units: UNITS; Status: F Test: SPECIFIC GRAVITY URINE AUTO; Value: 1.014; Range: 1.002-1.035; Status: F Test: PROTEIN, URINE AUTO; Value: 2+; Range: NEGATIVE; Abnormal: Above high normal; Units: mg/dL; Status: F Test: GLUCOSE, URINE (UA) AUTO; Value: NEGATIVE; Range: NEGATIVE; Units: mg/dL; Status: F Test: KETONE, URINE AUTO; Value: NEGATIVE; Range: NEGATIVE; Units: mg/dL; Status: F Test: UROBILINOGEN, URINE AUTO; Value: 0.2; Range: 0.0-2.0; Units: mg/dL; Status: F Test: BILIRUBIN, URINE AUTO; Value: NEGATIVE; Range: NEGATIVE; Status: F Test: NITRITE, URINE AUTO; Value: NEGATIVE; Range: NEGATIVE; Status: F Test: LEUKOCYTE ESTERASE, URINE AUTO; Value: 1+; Range: NEGATIVE; Abnormal: Above high normal; Status: F Test: BLOOD, URINE BLOOD; Value: 3+; Range: NEGATIVE; Abnormal: Above high normal; Status: F Test: WBC, URINE AUTO; Value: 137; Range: 0-3; Abnormal: Above high normal; Units: /HPF; Status: F Test: RBC, URINE AUTO; Value: TNTC; Range: 0-3; Abnormal: Above high normal; Units: /HPF; Status: F Test: BACTERIA, URINE AUTO; Value: NEGATIVE; Range: NEGATIVE; Status: F Test: SQUAMOUS EPITHELIAL CELL UR AU; Value: 0; Range: 0-6; Units: /HPF; Status: F Test: MUCUS, URINE; Value: SMALL; Range: NEGATIVE; Status: F Test: HYALINE CAST, URINE AUTO; Value: 0; Range: 0-1; Units: /LPF; Status: F Test: CALCIUM OXALATE CRYSTALS; Value: SMALL; Range: NONE; Status: F Radiology Order: EKG-ADULT Test: EKG-ADULT REASON FOR EXAMINATION: dizzy; Stationary ECG Study; [facility] - ED; ; Test Date: 2016-09-01; Pat Name: JERRY ASHLEY Department:; Room: -; 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 Fall.; ; Comparison: None .; ; Findings:; The mediastinum and cardiac silhouette are stable and within normal limits for; portable technique. The lung camp[place] are clear without acute consolidation,; effusion, or pneumothorax. Skeletal structures are intact. Widening to the left; acromioclavicular joint is similar to prior CT dated 10/27/2015.; ; Impression:; No acute cardiopulmonary process appreciated.; ; ; Signed by; Tejas Tristan MD 09/01/2016 12:28 P; Radiology Order: CT Head Without Contrast Test: CT Head Without Contrast REASON FOR EXAMINATION: dizzy, fall; CT HEAD WITHOUT CONTRAST:; ; HISTORY: Fall.; ; Areas of decreased attentuation are present in the periventricular white matter.; This represents small vessel ischemic disease. There is no intraparenchymal; hemorrhage, mass, or midline shift. The ventricular system and cortical sulci as; well as subarachnoid space in the posterior fossa are dilated consistent with; mild volume loss. There is no extracerebral collection. There is no fracture.; The visualized sinuses are clear.; ; IMPRESSION:; ; 1. Small vessel ischemic disease.; ; 2. Mild volume loss.; ; ; Signed by; Jose Alejandro Belcher MD 09/01/2016 01:01 P; Radiology Order: Knee, Complete Test: Knee, Complete REASON FOR EXAMINATION: Trauma; Clinical: Trauma.; ; Technique: AP, lateral, bilateral oblique and sunrise views of the left knee.; ; Findings:; Osteopenia and age-related degenerative changes including medial and; patellofemoral joint space compartment narrowing with subchondral sclerosis is; appreciated. No acute fracture dislocation. No effusion.; ; Impression: Osteopenia and degenerative changes. No acute fracture or; dislocation.; ; ; Signed by; Tejas Tristan MD 09/01/2016 01:55 P; Outcome: 09/01 14:18 Decision to Hospitalize by Provider. br1 21:23 Discharge Assessment: Patient awake, alert and oriented x 3. No cognitive and/or jp6 functional deficits noted. Patient verbalized understanding of disposition instructions. patient administered narcotics - no. The following High Risk Discharge criteria are identified: None. Admitted to Med/Surg accompanied by tech, via stretcher, with chart. Condition: unchanged. No special radiology studies were completed. Admission hand-off: Report Faxed Fax receipt verified by Delio Moran. Property :Personal belongings accompany Pt. 09/02 01:54 Patient left the ED. jp6 Signatures: Dispatcher [employer] EDMS Rebel Leal RN RN jmk Peters, Mary, RN RN mcp Barnhardt, Gloria, Floyd Delgadillo MD MD br1 Amy Montoya RN RN dsf Becki Jane cmb Damir Gandara, ALGEBRA TEACHER ALGEBRA TEACHER jlf Raul Ralph,RN RN mb9 Deena Petersen,RN RN kc3 Franklin Mckay,RN RN jf3 Senait Garcia,RN RN jp6 Ramesh Boo, Reg Reg pm4 Chart Complete MTDD
--- NOTE | 2016-09-04 02:55 | EDDOCDS ---
Physician Documentation [facility] Name: Jerry Ashley Age: 76 yrs Sex: Male : 1940 Arrival Date: 09/01/2016 Time: 10:58 Bed Admit Hold Private MD: Darrell Dominguez Disposition: 09/01/16 14:18 Hospitalization ordered by Aixa Barraza for Inpatient Admission. Preliminary diagnosis are Syncope and collapse, Orthostatic hypotension, Unspecified right bundle-branch block. - Bed requested for 5 Moran. - Status is Inpatient Admission. jp6 - Condition is Stable. - Problem is new. - Symptoms are unchanged. Historical: - Allergies: no known allergies; - Home Meds: 1. doxazosin 8 mg oral tr24 1 tab once daily (Last dose: 08/31/2016) 2. metoprolol tartrate 25 mg Oral tab 1 tab 2 times per day (Last dose: 09/01/2016) 3. simvastatin 20 mg Oral tab 1 tab once daily (Last dose: 08/31/2016) 4. aspirin 162 mg Oral TbEC 1 tab once daily (Last dose: 09/01/2016) 5. Vitamin D 1000 units Oral daily (Last dose: 09/01/2016) 6. vitamin B complex oral cap 500 mg daily (Last dose: 09/01/2016) 7. CoQ-10 oral 200 mg oral daily (Last dose: 09/01/2016) 8. hydrochlorothiazide 25 mg Oral tab 1 tab once daily (Last dose: 09/01/2016) 9. Colace oral Unknown oral prn as needed 10. nortriptyline 25 mg Oral cap 1 cap 2 times per day (Last dose: 09/01/2016) 11. Lupron Depot (6 Month) 45 mg intramuscular sykt every 6 months (Last dose: 08/01/2016) 12. Xtandi 40 mg oral cap 3 caps once daily (Last dose: 09/01/2016) 13. ondansetron HCl 8 mg Oral tab 1 tab prn 14. tramadol 50 mg Oral tab 1 tab (Last dose: Unknown) - PMHx: prostate cancer; Diabetes - NIDDM: controlleddietary controlled; spondylosis; kidney blockage; sepsis; pleural effusion; - PSHx: Rotator Cuff Repair- Left; circumcision (2008); Carotid surgery; Cataract Surgery- Bilateral; double J stent; - Social history: Smoking status: Patient states former smoker of tobacco. No barriers to communication noted. - Family history: Not pertinent. - : The pt / caregiver states he / she is not on anticoagulants. Home medication list is obtained from the patient. - Exposure Risk Screening:: None identified. Vital Signs: 09/01 11:00 BP 98 / 56; Pulse 83; Resp 18; Temp 98.3(O); Pulse Ox 100% ; Weight 88.45 kg / 195 lbs; cmb Height 6 ft. 2 in. (187.96 cm); Pain 0/10; 13:34 BP 135 / 64 Supine; Pulse 62; jmk 13:34 BP 99 / 50 Sitting; Pulse 69; jmk 13:35 BP 93 / 53 Standing; Pulse 74; jmk 19:17 BP 144 / 63 (auto/); jp6 19:17 Pulse 70 MON; Pulse Ox 97% ; jp6 23:11 BP 135 / 63; Pulse 77; Resp 16; Temp 99.7; Pulse Ox 96% on R/A; Pain 0/10; jp6 11:00 Body Mass Index 25.04 (88.45 kg, 187.96 cm) cmb MDM: 11:52 IV Saline Lock ordered. ml 11:52 Technician Support Engineer/Pulse Ox/q 15 min VS ordered. ml 11:52 Rhythm Strip to chart ordered. ml 11:52 Orthostatic VS ordered. ml 11:52 NS 0.9% 500 ml IV at bolus once ordered. ml 11:53 ECG WITH READING ER PHYS+CARDIAG ordered. EDMS 11:54 CBC with Diff Ordered. EDMS 11:54 MED Profile Ordered. EDMS 11:54 CIP Ordered. EDMS 11:54 Troponin Ordered. EDMS 11:54 Liver Profile Ordered. EDMS 11:54 Chest, 1 View Ordered. EDMS 11:54 CT Head Without Contrast Ordered. EDMS 13:18 Knee, Complete Ordered. EDMS 13:57 Financial registration complete. pm4 13:59 NS 0.9% 500 ml IV at bolus once ordered. br1 14:00 CBC with Diff Reviewed. br1 14:00 MED Profile Reviewed. br1 14:00 CIP Reviewed. br1 14:00 Liver Profile Reviewed. br1 14:00 Troponin Reviewed. br1 14:00 Chest, 1 View Reviewed. br1 14:00 CT Head Without Contrast Reviewed. br1 14:10 cefUROXime 250 mg PO once ordered. br1 14:10 BED REQUEST+ADM ordered. EDMS 14:15 Urinalysis Ordered. EDMS 14:15 Urine Culture Ordered. EDMS 14:23 PHYSICAL THERAPY EVAL & TREAT ordered. EDMS 14:24 Admission / Observation Status ordered. EDMS 14:24 NO ADDED SALT DIET ordered. EDMS 14:49 [facility] [place] [facility] Payment Agreement was scanned into [employer] and attached to record. pm4 15:05 NS 0.9% 1000 ml IV at 100 mL/hr continuous ordered. k 15:07 T-Sheet-- Draft Copy was scanned into [employer] and attached to record. gb 19:33 CBC WITH DIFFERENTIAL Ordered. EDMS 19:33 COMPLETE COMPHRENSIVE METABOLI Ordered. EDMS 09/02 10:06 ECG/EKG was scanned into [employer] and attached to record. gb 10:07 Trend VS was scanned into [employer] and attached to record. gb Administered Medications: 09/01 12:21 Drug: NS 0.9% 500 ml Route: IV; Rate: bolus; Site: left antecubital; k 14:34 Drug: NS 0.9% 500 ml Route: IV; Rate: bolus; Site: left antecubital; jmk 15:06 Follow up: IV Status: Completed infusion jmk 15:03 Drug: cefUROXime 250 mg Route: PO; jmk 15:05 Drug: NS 0.9% 1000 ml Route: IV; Rate: 100 mL/hr; Site: left antecubital; k Signatures: Dispatcher [employer] EDMS Zaid James MD MD ml Rebel Leal,RN RN jmk Lidia Condon, Reg Reg gb Lester Youngbeth, Slide Fastener Chain Assembler Unit ml3 Floyd Rodrigues MD MD br1 Raul Ralph,RN RN mb9 Senait GarciaRN RN jp6 Ramesh Boo, Reg Reg pm4 The chart was reviewed and I authenticate all verbal orders and agree with the evaluation and treatment provided.Corrections: (The following items were deleted from the chart) 14:32 14:24 BASIC METABOLIC PROFILE ordered. EDMS EDMS 14:32 14:25 CBC WITH DIFFERENTIAL ordered. EDMS EDMS Attachments: 14:49 [facility] Payment Agreement pm4 15:07 T-Sheet-- Draft Copy gb 09/02 10:06 ECG/EKG gb Chart Complete MTDD
== END 2016-09-03 13:35 | disposition home health service (06) ==
LOC: M ED 10:58 → M ED INP 14:18 → M MS5PR 09-02 02:01
PROVIDERS: ADMIT General Practice; ATTEND Internal Medicine
DX: I95.1 Orthostatic hypotension (principal); I45.10 Unspecified right bundle-branch block; I10 Essential (primary) hypertension; E78.4 Other hyperlipidemia; M25.562 Pain in left knee; C61 Malignant neoplasm of prostate; E55.9 Vitamin D deficiency, unspecified; Z92.21 Personal history of antineoplastic chemotherapy; Z92.3 Personal history of irradiation; Z79.82 Long term (current) use of aspirin; Z79.899 Other long term (current) drug therapy
CPT/HCPCS: 36415; 70450; 71010; 73564; 80048; 80053; 80076; 81001; 82550; 82553; 84484; 85025; 87086; 87486; 87581; 87633; 87798; 93005; 93041; 96360; 96372; 97162; 97530; 99285; G0378; G8978; G8979; G8980; J1650

== ENCOUNTER → 2016-09-17 | Outpatient (REF) | payer MEDICARE, OTHER ==
[~2016-09-17] MED LIST: ASPI1TAB PO; CEFT250T8 PO; CO Q200C PO; COLA100C PO; DOXA1TAB49 PO; HYDR25TAB PO; LUPR45IN IM; METO12TA PO; MIRA3350 PO; NORT25CA2 PO; OCUVTAB PO; OYST500T17 PO; SIMV20TA2 PO; TRAM50TA2 PO; VITA100066 PO; VITATAB11 PO; XTAN40CA PO; ZOFR8TAB PO
== END ==
LOC: M LAB REF 12:22
PROVIDERS: ATTEND Internal Medicine Medical Oncology
DX: C61 Malignant neoplasm of prostate (principal)

== ENCOUNTER → 2016-09-30 | Outpatient (REF) | payer MEDICARE, OTHER ==
[2016-09-30 13:35] LABS: FOLATE > 24.0 NG/ML; TOTAL PROTEIN 6.8 GM/DL (6.4-8.2); VITAMIN B12 LEVEL 463 PG/ML
[2016-10-01 12:47] LABS: ALBUMIN % 58.8 % (55.8-66.1); GAMMA GLOBULIN % 12.8 % (11.1-18.8)
== END ==
LOC: M LABNEURO 12:44
PROVIDERS: ATTEND Psychiatry & Neurology Neurology
DX: E11.9 Type 2 diabetes mellitus without complications (principal); R20.0 Anesthesia of skin

== ENCOUNTER 2016-10-05 18:08 | Emergency (ER) | payer MEDICARE, OTHER ==
[2016-10-05] MEDS ORDERED: fentaNYL 100 MCG/2 ML INJECTION (J3010) As Ordered ONE (19:02)
[2016-10-05 19:11] LABS: BASO % 0.3 % (0.0-1.0); EOS # 0.3 K/mm3 (0.0-0.50); EOS % 3.7 % (0.0-3.0); LARGE UNSTAINED CELL # 0.2 K/mm3 (0.0-0.4); LARGE UNSTAINED CELL % 2.2 % (0.0-4.0); LYMPH # 2.7 K/mm3 (1.5-4.5); LYMPH % 29.3 % (24.0-44.0); MEAN CORPUSCULAR HEMOGLOBIN 30.8 pg (27.0-33.0); MEAN CORPUSCULAR HGB CONC 32.4 g/dl (32.0-36.5); MEAN CORPUSCULAR VOLUME 95.3 fl (80.0-96.0); MONO # 0.6 K/mm3 (0.0-0.8); MONO % 7.1 % (0.0-5.0); NEUTROPHILS # 4.8 K/mm3 (1.8-7.7); NEUTROPHILS % 57.3 % (36.0-66.0); PLATELET COUNT, AUTOMATED 403 k/mm3 (150-450); RED CELL DISTRIBUTION WIDTH 13.4 % (11.5-14.5); WHITE BLOOD COUNT 8.4 K/mm3 (4.0-10.0)
[2016-10-05 19:32] LABS: ALBUMIN 3.7 GM/DL (3.2-5.2); ALBUMIN/GLOBULIN RATIO 1.03 (1.00-1.93); ALKALINE PHOSPHATASE 84 U/L (45-117); ALT/SGPT 20 U/L (12-78); ANION GAP 9 MEQ/L (8-16); AST/SGOT 23 U/L (15-37); BILIRUBIN,DIRECT 0.1 MG/DL (0.0-0.2); BILIRUBIN,TOTAL 0.3 MG/DL (0.2-1.0); BLOOD UREA NITROGEN 14 MG/DL (7-18); CARBON DIOXIDE LEVEL 27 MEQ/L (21-32); CHLORIDE LEVEL 101 MEQ/L (98-107); CREATININE FOR GFR 1.01 MG/DL (0.70-1.30); GLOMERULAR FILTRATION RATE > 60.0 (>42); GLUCOSE, FASTING 123 MG/DL (83-110); POTASSIUM SERUM 3.7 MEQ/L (3.5-5.1); SODIUM LEVEL 137 MEQ/L (136-145); TOTAL PROTEIN 7.3 GM/DL (6.4-8.2)
[2016-10-05] MEDS ORDERED: KETOROLAC 30 MG/ML VIAL (J1885) As Ordered ONE (19:33)
[2016-10-05 21:27] LABS: CALCIUM OXALATE CRYSTALS SMALL
[2016-10-05] MEDS ORDERED: CIPROFLOXACIN 500 MG TAB As Ordered ONE (21:51)
[2016-10-05] MEDS ORDERED: OXYCODONE/APAP 5MG/325MG(BULK) 1 TAB TAB As Ordered ONE (22:06)
--- NOTE | 2016-10-05 22:24 | EDDOCDS ---
Physician Documentation [facility] Name: Jerry Ashley Age: 76 yrs Sex: Male : 1940 Arrival Date: 10/05/2016 Time: 18:08 Bed 15 Private MD: Darrell Dominguez Disposition: 10/05/16 21:51 Discharged to Home/Self Care. Impression: Abdominal and pelvic pain, Low back pain. - Condition is Stable. - Discharge Instructions: Abdominal Pain, Adult, Urinary Tract Infection, [id number]. - Prescriptions for Cipro 500 mg Oral Tablet - take 1 tablet by ORAL route every 12 hours; 10 tablet. - Medication Reconciliation, Local Pharmacy Hours form. - Follow up: Darrell Dominguez; When: Call to arrange an appointment; Reason: Continuance of care. Follow up: Clif Billings; When: Call to arrange an appointment; Reason: Continuance of care. - Problem is chronic. - Symptoms have improved. Historical: - Allergies: no known allergies; - Home Meds: 1. calcium 500mg daily (Last dose: 10/05/2016 08:00) 2. CoQ-10 200 mg oral daily (Last dose: 10/05/2016 08:00) 3. vitamin B complex 500mg oral cap daily 4. vitamin d3 2000 units daily 5. simvastatin 20 mg Oral tab 1 tab nightly (Last dose: 10/04/2016) 6. aspirin 81 mg Oral tab 2 tabs nightly (Last dose: 10/04/2016) 7. Miralax 17 gram Oral pwpk 1 packet once daily 8. xgva 120mg monthly 9. lupron every 6 months 10. Xtandi 40 mg oral cap 3 caps once daily 11. ondansetron HCl 8 mg Oral tab 1 tab prn 12. tramadol 50 mg Oral tab 1 tab 13. ocuvite daily - PMHx: Diabetes - NIDDM: controlleddietary controlled; kidney blockage; pleural effusion; sepsis; spondylosis; Macular Degeneration; prostate cancer; - PSHx: Rotator Cuff Repair- Left; circumcision; kidney stents; Cataract Surgery- Bilateral; Carotid Endarterectomy; - Social history: Smoking status: Patient states former smoker of tobacco. No barriers to communication noted, The patient speaks fluent Nigerian, Speaks appropriately for age. - Family history: Not pertinent. - : The pt / caregiver states he / she is not on anticoagulants. Home medication list is obtained from the patient, family members. - Exposure Risk Screening:: None identified. Vital Signs: 10/05 18:10 BP 158 / 79; Pulse 84; Resp 18; Temp 97.6(O); Pulse Ox 100% ; Weight 86.18 kg / 189.99 ct3 lbs (R); Height 6 ft. 2 in. (187.96 cm) (R); Pain 10/10; 19:08 BP 207 / 96 (auto/); ms18 19:10 Pulse 72 MON; Pulse Ox 99% ; ms18 19:29 BP 224 / 99 (auto/); ms18 19:30 Pulse 70 MON; Pulse Ox 99% ; ms18 19:38 BP 205 / 86 (auto/); ms18 19:38 Pulse 72 MON; Pulse Ox 98% ; ms18 20:08 BP 181 / 77 (auto/); ms18 20:09 Pulse 68 MON; Pulse Ox 96% ; ms18 20:23 BP 185 / 91 (auto/); ms18 20:24 Pulse 70 MON; Pulse Ox 96% ; ms18 20:30 Pain 7/10; ms18 20:38 BP 196 / 86 (auto/); ms18 20:39 Pulse 70 MON; Pulse Ox 96% ; ms18 20:53 BP 182 / 84 (auto/); ms18 20:54 Pulse 70 MON; Pulse Ox 96% ; ms18 21:08 BP 178 / 81 (auto/); ms18 21:09 Pulse 70 MON; Pulse Ox 98% ; ms18 21:23 BP 161 / 78 (auto/); ms18 21:24 Pulse 68 MON; Pulse Ox 98% ; ms18 21:38 BP 153 / 76 (auto/); ms18 21:39 Pulse 68 MON; Pulse Ox 97% ; ms18 21:53 BP 154 / 81 (auto/); ms18 21:54 Pulse 72 MON; Resp 18; Pulse Ox 97% ; ms18 18:10 Body Mass Index 24.39 (86.18 kg, 187.96 cm) ct3 MDM: 18:31 Urinalysis Ordered. EDMS 18:31 Urine Culture Ordered. EDMS 18:32 Bladder Scan please ordered. fg 18:32 IV Saline Lock ordered. fg 18:32 Basic Metabolic Profile Ordered. EDMS 18:50 NS 0.9% 500 ml IV at bolus once ordered. fg 18:50 fentaNYL (PF) 50 mcg IVP once ordered. fg 18:51 CBC with Diff Ordered. EDMS 18:52 Financial registration complete. [email or web address] 18:53 [facility] Payment Agreement was scanned into [employer] and attached to record. ks16 19:01 ketorolac 30 mg IVP once ordered. fg 19:02 CT ABD & PELVIS: No Contrast Ordered. EDMS 19:18 LIPASE Ordered. EDMS 19:18 LIVER PROFILE Ordered. EDMS 21:48 Ciprofloxacin 500 mg PO once ordered. fg 22:00 oxyCODONE-acetaminophen 4 pack 5 mg-325 mg 1 packets PO once; Dispense with pt, take as fg per instruction on package ordered. Administered Medications: 19:11 Drug: NS 0.9% 500 ml [sodium chloride 0.9 % intravenous solution] Route: IV; Rate: ms18 bolus; Site: right antecubital; 20:30 Follow up: IV Status: Completed infusion; IV Intake: 500ml ms18 19:12 Drug: fentaNYL (PF) 50 mcg [fentanyl (PF) 50 mcg/mL injection solution (1 mL)] Route: ms18 IVP; Site: right antecubital; 19:39 Follow up: Response: No significant change. ms18 19:39 Drug: ketorolac 30 mg [ketorolac 30 mg/mL (1 mL) injection solution (1 mL)] Route: IVP; ms18 Site: right antecubital; 20:30 Follow up: Pain 7/10 Adult; Response: Pain is decreased ms18 21:55 Drug: Ciprofloxacin 500 mg [ciprofloxacin 500 mg tablet (1 tabs)] Route: PO; ms18 22:21 Follow up: Response: No Adverse Reaction ms18 22:20 Drug: oxyCODONE-acetaminophen 4 pack 1 packets [oxycodone-acetaminophen 5 mg-325 mg ms18 tablet (1 tabs)] {Co-Signature: [email or web address] (Olivia Guthrie RN).} Route: PO; 22:21 Follow up: Response: Med's dispensed home ms18 Signatures: Dispatcher [employer] EDMS Evelina Galaviz RN RN [facility] Adri Madsen RN RN ms18 Loyda Chiang MD MD Tessa Cross, Reg Reg ks16 Olivia Guthrie RN [id number] The chart was reviewed and I authenticate all verbal orders and agree with the evaluation and treatment provided.Corrections: (The following items were deleted from the chart) 19:12 18:51 RENAL US+US ordered. EDMS EDMS :16 19:09 LIVER PROFILE+LAB ordered. EDMS EDMS : 19:10 LIPASE+LAB ordered. EDMS EDMS Attachments: 18:53 [facility] [place] Agreement [email or web address] MTDD
--- NOTE | 2016-10-05 22:24 | EDDOCDS ---
Nurse's Notes [facility] Name: Jerry Ashley Age: 76 yrs Sex: Male : 1940 Arrival Date: 10/05/2016 Time: 18:08 Bed 15 Private MD: Darrell Dominguez Diagnosis: Abdominal and pelvic pain;Low back pain Presentation: 10/05 18:19 Presenting complaint: Patient states: right kidney pain- has 2 stents in. saw [facility] this am. late this afternoon increase in pain and very dark in color and minimal amount. Acute neurological deficits are not present. Mechanism of Injury: No Mechanism of Injury. Adult Sepsis Screening: The patient does not have new or worsening altered mentation. Patient's respiratory rate is less than 22. Systolic blood pressure is greater than 100. Patient has a qSOFA score of 0- Negative Sepsis Screen. Suicide/Homicide risk assessment- the patient denies having any suicidal and/or homicidal ideations and does not present with any other emotional, behavioral or mental health complaints. Status: Patient is not a field service representative or dependent. Transition of care: patient was not received from another setting of care. 18:19 Acuity: TONO Level 3 [facility] 18:19 Method Of Arrival: Wheelchair [facility] Triage Assessment: 18:26 General: Appears uncomfortable, Behavior is appropriate for age, cooperative. Pain: srm Pain currently is 10 out of 10 on a pain scale. Musculoskeletal: No deficits noted. Historical: - Allergies: no known allergies; - Home Meds: 1. calcium 500mg daily (Last dose: 10/05/2016 08:00) 2. CoQ-10 200 mg oral daily (Last dose: 10/05/2016 08:00) 3. vitamin B complex 500mg oral cap daily 4. vitamin d3 2000 units daily 5. simvastatin 20 mg Oral tab 1 tab nightly (Last dose: 10/04/2016) 6. aspirin 81 mg Oral tab 2 tabs nightly (Last dose: 10/04/2016) 7. Miralax 17 gram Oral pwpk 1 packet once daily 8. xgva 120mg monthly 9. lupron every 6 months 10. Xtandi 40 mg oral cap 3 caps once daily 11. ondansetron HCl 8 mg Oral tab 1 tab prn 12. tramadol 50 mg Oral tab 1 tab 13. ocuvite daily - PMHx: Diabetes - NIDDM: controlleddietary controlled; kidney blockage; pleural effusion; sepsis; spondylosis; Macular Degeneration; prostate cancer; - PSHx: Rotator Cuff Repair- Left; circumcision; kidney stents; Cataract Surgery- Bilateral; Carotid Endarterectomy; - Social history: Smoking status: Patient states former smoker of tobacco. No barriers to communication noted, The patient speaks fluent Qatari, Speaks appropriately for age. - Family history: Not pertinent. - : The pt / caregiver states he / she is not on anticoagulants. Home medication list is obtained from the patient, family members. - Exposure Risk Screening:: None identified. Screenin:10 Screening information is obtained from the patient. Fall risk: No risks identified. ms18 Assistance ADL's: requires no assistance with activities of daily living. Abuse/DV Screen: The patient / caregiver reports he/she is: not in a situation that causes fear, pain or injury. Nutritional screening: No deficits noted. home support is adequate. 21:54 Advance Directives: There is no living will. ms18 Assessment: 19:39 General: Appears in no apparent distress, uncomfortable, well nourished, well groomed, ms18 Behavior is appropriate for age, cooperative. Pain: Location: right mid back, anterior aspect of left lateral abdomen, posterior aspect of left lateral abdomen, right femoral area and right inguinal area Pain currently is 7 out of 10 on a pain scale. Neurological: No deficits noted. Respiratory: Airway is patent Respiratory effort is even, unlabored. : Reports not being able to produce much urine and the last time he voided, his urine was reported to be very dark. Derm: Skin is pink, warm & dry. 20:33 General: Appears in no apparent distress, comfortable, Behavior is appropriate for age, ms18 cooperative, quiet. Pain: Pain currently is 7 out of 10 on a pain scale. Neurological: No deficits noted. Respiratory: No deficits noted. Derm: Skin is pink, warm & dry. 21:47 General: Appears in no apparent distress, comfortable, Behavior is appropriate for age, ms18 cooperative. Pain: Pain currently is 1 out of 10 on a pain scale. Neurological: No deficits noted. Respiratory: No deficits noted. Derm: Skin is pink, warm & dry. 22:21 General: Appears in no apparent distress, comfortable, Behavior is appropriate for age, ms18 cooperative. Pain: Denies pain. Neurological: No deficits noted. Respiratory: Airway is patent Respiratory effort is even, unlabored. : Urine is cloudy. Derm: Skin is pink, warm & dry. Vital Signs: 18:10 BP 158 / 79; Pulse 84; Resp 18; Temp 97.6(O); Pulse Ox 100% ; Weight 86.18 kg (R); ct3 Height 6 ft. 2 in. (187.96 cm) (R); Pain 10/10; 19:08 BP 207 / 96 (auto/); ms18 19:10 Pulse 72 MON; Pulse Ox 99% ; ms18 19:29 BP 224 / 99 (auto/); ms18 19:30 Pulse 70 MON; Pulse Ox 99% ; ms18 19:38 BP 205 / 86 (auto/); ms18 19:38 Pulse 72 MON; Pulse Ox 98% ; ms18 20:08 BP 181 / 77 (auto/); ms18 20:09 Pulse 68 MON; Pulse Ox 96% ; ms18 20:23 BP 185 / 91 (auto/); ms18 20:24 Pulse 70 MON; Pulse Ox 96% ; ms18 20:30 Pain 7/10; ms18 20:38 BP 196 / 86 (auto/); ms18 20:39 Pulse 70 MON; Pulse Ox 96% ; ms18 20:53 BP 182 / 84 (auto/); ms18 20:54 Pulse 70 MON; Pulse Ox 96% ; ms18 21:08 BP 178 / 81 (auto/); ms18 21:09 Pulse 70 MON; Pulse Ox 98% ; ms18 21:23 BP 161 / 78 (auto/); ms18 21:24 Pulse 68 MON; Pulse Ox 98% ; ms18 21:38 BP 153 / 76 (auto/); ms18 21:39 Pulse 68 MON; Pulse Ox 97% ; ms18 21:53 BP 154 / 81 (auto/); ms18 21:54 Pulse 72 MON; Resp 18; Pulse Ox 97% ; ms18 18:10 Body Mass Index 24.39 (86.18 kg, 187.96 cm) ct3 Vitals: 18:10 Log In Time: October 05, 2016 at 18:07. ct3 ED Course: 18:09 Patient visited by Jailyn Mcfadden PCA. ct3 18:09 Darrell Dominguez is Private Physician. ct3 18:09 Patient moved to Waiting ct3 18:11 Patient moved to Pre RCE ct3 18:21 Triage Initiated srm 18:28 Adri Madsen,SACHIN is Primary Nurse. kr3 18:28 Loyda Chiang MD is Attending Physician. fg 18:28 Patient visited by Loyda Chiang MD. fg 18:28 Patient moved to 15 kr3 18:40 Bladder Scan completed Results: 0 mL found. Scanned multiple times and didn't find any ms18 urine at this time. 18:53 [facility] Payment Agreement was scanned into [employer] and attached to record. ks16 18:59 Patient visited by Adri Madsen RN. ms18 18:59 CBC with Diff Sent. ms18 18:59 Basic Metabolic Profile Sent. ms18 19:10 The patient / caregiver is instructed regarding the plan of care and ED course. ms18 Accompanied by Significant Other, Patient has correct armband on for positive identification. Placed in gown. Bed in low position. Call light in reach. Side rails up X2. Pulse ox on. NIBP on. Property :Personal belongings accompany Pt. 19:10 Inserted saline lock: 20 gauge in right antecubital area and blood collected. The ms18 patient tolerated the procedure well. 19:11 Patient visited by Adri Madsen RN. ms18 19:[address] ms18 19:29 Patient moved to 15 ms18 19:30 LIVER PROFILE Sent. ms18 19:30 LIPASE Sent. ms18 19:31 Patient visited by Adri Madsen RN. ms18 20:30 Patient visited by Adri Madsen RN. ms18 20:39 Patient name changed from Jerry\S\\S\Ashley\S\ to Jerry\S\ \S\Ashley. EDMS 21:07 Patient visited by Adri Madsen RN. ms18 21:07 Urinalysis Sent. ms18 21:07 Urine Culture Sent. ms18 21:47 Patient visited by Adri Madsen RN. ms18 21:51 Darrell Dominguez is Referral Physician. fg 21:51 Clif Billings is Referral Physician. fg 21:54 Discontinued IV lock intact, bleeding controlled, pressure dressing applied, No ms18 redness/swelling at site. No procedures done that require assistance. Administered Medications: 19:11 Drug: NS 0.9% 500 ml [sodium chloride 0.9 % intravenous solution] Route: IV; Rate: ms18 bolus; Site: right antecubital; 20:30 Follow up: IV Status: Completed infusion; IV Intake: 500ml ms18 19:12 Drug: fentaNYL (PF) 50 mcg [fentanyl (PF) 50 mcg/mL injection solution (1 mL)] Route: ms18 IVP; Site: right antecubital; 19:39 Follow up: Response: No significant change. ms18 19:39 Drug: ketorolac 30 mg [ketorolac 30 mg/mL (1 mL) injection solution (1 mL)] Route: IVP; ms18 Site: right antecubital; 20:30 Follow up: Pain 7/10 Adult; Response: Pain is decreased ms18 21:55 Drug: Ciprofloxacin 500 mg [ciprofloxacin 500 mg tablet (1 tabs)] Route: PO; ms18 22:21 Follow up: Response: No Adverse Reaction ms18 22:20 Drug: oxyCODONE-acetaminophen 4 pack 1 packets [oxycodone-acetaminophen 5 mg-325 mg ms18 tablet (1 tabs)] {Co-Signature: [email or web address] (Olivia Guthrie RN).} Route: PO; 22:21 Follow up: Response: Med's dispensed home ms18 Intake: 20:30 IV: 500.00ml; Total: 500.00ml. ms18 Order Results: Lab Order: Urinalysis; SPEC'M 10/05/16 21:04 Test: APPEARANCE, URINE; Value: CLOUDY; Range: CLEAR; Abnormal: Above high normal; Status: F Test: COLOR, URINE; Value: YELLOW; Range: YELLOW; Status: F Test: PH,URINE; Value: 7.0; Range: 5.0-9.0; Units: UNITS; Status: F Test: SPECIFIC GRAVITY URINE AUTO; Value: 1.018; Range: 1.002-1.035; Status: F Test: PROTEIN, URINE AUTO; Value: 1+; Range: NEGATIVE; Abnormal: Above high normal; Units: mg/dL; Status: F Test: GLUCOSE, URINE (UA) AUTO; Value: NEGATIVE; Range: NEGATIVE; Units: mg/dL; Status: F Test: KETONE, URINE AUTO; Value: TRACE; Range: NEGATIVE; Abnormal: Above high normal; Units: mg/dL; Status: F Test: UROBILINOGEN, URINE AUTO; Value: 0.2; Range: 0.0-2.0; Units: mg/dL; Status: F Test: BILIRUBIN, URINE AUTO; Value: NEGATIVE; Range: NEGATIVE; Status: F Test: NITRITE, URINE AUTO; Value: NEGATIVE; Range: NEGATIVE; Status: F Test: LEUKOCYTE ESTERASE, URINE AUTO; Value: 1+; Range: NEGATIVE; Abnormal: Above high normal; Status: F Test: BLOOD, URINE BLOOD; Value: 3+; Range: NEGATIVE; Abnormal: Above high normal; Status: F Test: WBC, URINE AUTO; Value: 5; Range: 0-3; Abnormal: Above high normal; Units: /HPF; Status: F Test: RBC, URINE AUTO; Value: TNTC; Range: 0-3; Abnormal: Above high normal; Units: /HPF; Status: F Test: BACTERIA, URINE AUTO; Value: 1+; Range: NEGATIVE; Abnormal: Above high normal; Status: F Test: SQUAMOUS EPITHELIAL CELL UR AU; Value: 0; Range: 0-6; Units: /HPF; Status: F Test: MUCUS, URINE; Value: SMALL; Range: NEGATIVE; Status: F Test: HYALINE CAST, URINE AUTO; Value: 0; Range: 0-1; Units: /LPF; Status: F Test: AMORPHOUS SEDIMENT; Value: SMALL; Range: NEGATIVE; Abnormal: Above high normal; Status: F Test: CALCIUM OXALATE CRYSTALS; Value: SMALL; Range: NONE; Status: F Lab Order: Basic Metabolic Profile; SPEC'M 10/05/16 18:57 Test: GLUCOSE, FASTING; Value: 123; Range: 83-110; Abnormal: Above high normal; Units: MG/DL; Status: F Test: BLOOD UREA NITROGEN; Value: 14; Range: 7-18; Units: MG/DL; Status: F Test: CREATININE FOR GFR; Value: 1.01; Range: 0.70-1.30; Units: MG/DL; Status: F Test: GLOMERULAR FILTRATION RATE; Value: > 60.0; Range: >42; Status: F Test: SODIUM LEVEL; Value: 137; Range: 136-145; Units: MEQ/L; Status: F Test: POTASSIUM SERUM; Value: 3.7; Range: 3.5-5.1; Units: MEQ/L; Status: F Test: CHLORIDE LEVEL; Value: 101; Range: 98-107; Units: MEQ/L; Status: F Test: CARBON DIOXIDE LEVEL; Value: 27; Range: 21-32; Units: MEQ/L; Status: F Test: ANION GAP; Value: 9; Range: 8-16; Units: MEQ/L; Status: F Test: CALCIUM LEVEL; Value: 9.0; Range: 8.8-10.2; Units: MG/DL; Status: F Test Note: ; Units are mL/min/1.73 m2 Chronic Kidney Disease Staging per NKF: Stage I & II GFR >=60 Normal to Mildly Decreased Stage III GFR 30-59 Moderately Decreased Stage IV GFR 15-29 Severely Decreased Stage V GFR <15 Very Little GFR Left ESRD GFR <15 on COMPUTER ART INSTRUCTOR Lab Order: CBC with Diff; SPEC'M 10/05/16 18:42 Test: WHITE BLOOD COUNT; Value: 8.4; Range: 4.0-10.0; Units: K/mm3; Status: F Test: RED BLOOD COUNT; Value: 4.14; Range: 4.30-6.10; Abnormal: Below low normal; Units: M/mm3; Status: F Test: HEMOGLOBIN; Value: 12.8; Range: 14.0-18.0; Abnormal: Below low normal; Units: g/dl; Status: F Test: HEMATOCRIT; Value: 39.4; Range: 42.0-52.0; Abnormal: Below low normal; Units: %; Status: F Test: MEAN CORPUSCULAR VOLUME; Value: 95.3; Range: 80.0-96.0; Units: fl; Status: F Test: MEAN CORPUSCULAR HEMOGLOBIN; Value: 30.8; Range: 27.0-33.0; Units: pg; Status: F Test: MEAN CORPUSCULAR HGB CONC; Value: 32.4; Range: 32.0-36.5; Units: g/dl; Status: F Test: RED CELL DISTRIBUTION WIDTH; Value: 13.4; Range: 11.5-14.5; Units: %; Status: F Test: PLATELET COUNT, AUTOMATED; Value: 403; Range: 150-450; Units: k/mm3; Status: F Test: NEUTROPHILS %; Value: 57.3; Range: 36.0-66.0; Units: %; Status: F Test: LYMPH %; Value: 29.3; Range: 24.0-44.0; Units: %; Status: F Test: MONO %; Value: 7.1; Range: 0.0-5.0; Abnormal: Above high normal; Units: %; Status: F Test: EOS %; Value: 3.7; Range: 0.0-3.0; Abnormal: Above high normal; Units: %; Status: F Test: BASO %; Value: 0.3; Range: 0.0-1.0; Units: %; Status: F Test: LARGE UNSTAINED CELL %; Value: 2.2; Range: 0.0-4.0; Units: %; Status: F Test: NEUTROPHILS #; Value: 4.8; Range: 1.8-7.7; Units: K/mm3; Status: F Test: LYMPH #; Value: 2.7; Range: 1.5-4.5; Units: K/mm3; Status: F Test: MONO #; Value: 0.6; Range: 0.0-0.8; Units: K/mm3; Status: F Test: EOS #; Value: 0.3; Range: 0.0-0.50; Units: K/mm3; Status: F Test: BASO #; Value: 0.0; Range: 0.0-0.2; Units: K/mm3; Status: F Test: LARGE UNSTAINED CELL #; Value: 0.2; Range: 0.0-0.4; Units: K/mm3; Status: F Lab Order: LIPASE; SPEC'M 10/05/16 18:57 Test: LIPASE; Value: 82; Range: 73-393; Units: U/L; Status: F Lab Order: LIVER PROFILE; SPEC' 10/05/16 18:57 Test: AST/SGOT; Value: 23; Range: 15-37; Units: U/L; Status: F Test: ALT/SGPT; Value: 20; Range: 12-78; Units: U/L; Status: F Test: ALKALINE PHOSPHATASE; Value: 84; Range: 45-117; Units: U/L; Status: F Test: BILIRUBIN,TOTAL; Value: 0.3; Range: 0.2-1.0; Units: MG/DL; Status: F Test: BILIRUBIN,DIRECT; Value: 0.1; Range: 0.0-0.2; Units: MG/DL; Status: F Test: TOTAL PROTEIN; Value: 7.3; Range: 6.4-8.2; Units: GM/DL; Status: F Test: ALBUMIN; Value: 3.7; Range: 3.2-5.2; Units: GM/DL; Status: F Test: ALBUMIN/GLOBULIN RATIO; Value: 1.03; Range: 1.00-1.93; Status: F Outcome: 21:51 Discharge ordered by Provider. fg 21:54 Discharge Assessment: Patient awake, alert and oriented x 3. No cognitive and/or ms18 functional deficits noted. Patient verbalized understanding of disposition instructions. patient administered narcotics - yes. Pt provided with safe discharge. The following High Risk Discharge criteria are identified: None. Discharged to home ambulatory, with significant other. Condition: good Condition: stable Condition: improved. Discharge instructions given to patient, significant other, Instructed on discharge instructions, follow up and referral plans. medication usage, Demonstrated understanding of instructions, medications, Pt was receptive of discharge instructions/ teaching. Prescriptions given X 1. CT Study completed. 22:23 Patient left the ED. ms18 Signatures: Dispatcher [employer] EDMS Evelina Galaviz, RN Laverne Velasquez RN RN kr3 Jailyn Mcfadden, SALES AND MARKETING SPECIALIST SALES AND MARKETING SPECIALIST ct3 Adri Madsen RN RN ms18 Loyda Chiang MD MD Tessa Cross, Reg Reg ks16 Olivia Guthrie RN mv5 Corrections: (The following items were deleted from the chart) 19:16 19:11 LIPASE+LAB sent. ms18 EDMS 19:16 19:11 LIVER PROFILE+LAB sent. ms18 EDMS MTDD
--- NOTE | 2016-10-06 08:56 | REP ---
Clinical: Abdominal pain. Comparison: 04/01/2016. Findings: Right kidney demonstrates a nephrostomy and ureteral stent with evidence for moderate persistent hydroureteronephrosis as well as moderate perinephric stranding. No obvious obstructing or ureteral calculus is identified. Acute pyelonephritis cannot be excluded and requires correlation. Lung bases are clear. Visualized heart and pericardium normal. Liver, spleen, pancreas, gallbladder, bilateral adrenal glands and left kidney appear normal. The enteric system is without obstruction or acute inflammatory process. Normal terminal ileum and appendix are identified in the right lower quadrant. Colonic and sigmoid diverticula noted without acute diverticulitis. A symmetric appearance of the prostate gland is essentially unchanged compared to prior examination. Abdominal aorta demonstrates atherosclerotic changes as well as curvilinear calcification through the lumen of the infrarenal abdominal aorta suggesting the possibility of dissection and is unchanged compared to prior examination. Surrounding musculoskeletal structures demonstrate degenerative changes without focal osseous abnormality. Impression: 1. Changes involving the right kidney suggest acute pyelonephritis and correlation is required. Associated moderate hydroureteronephrosis despite nephrostomy and ureteral stent. Left kidney appears normal. 2. Chronic stable changes including diverticulosis, asymmetric appearance of the prostate gland, infrarenal abdominal aortic dissection without aneurysm, and degenerative changes of the musculoskeletal structures. Signed by Tejas Tristan MD 10/06/2016 08:48 A
--- NOTE | 2016-10-07 23:24 | EDDOCDS ---
Physician Documentation [facility] Name: Jerry Ashley Age: 76 yrs Sex: Male : 1940 Arrival Date: 10/05/2016 Time: 18:08 Bed 15 Private MD: Darrell Dominguez Disposition: 10/05/16 21:51 Discharged to Home/Self Care. Impression: Abdominal and pelvic pain, Low back pain. - Condition is Stable. - Discharge Instructions: Abdominal Pain, Adult, Urinary Tract Infection, [id number]. - Prescriptions for Cipro 500 mg Oral Tablet - take 1 tablet by ORAL route every 12 hours; 10 tablet. - Medication Reconciliation, Local Pharmacy Hours form. - Follow up: Darrell Dominguez; When: Call to arrange an appointment; Reason: Continuance of care. Follow up: Clif Billings; When: Call to arrange an appointment; Reason: Continuance of care. - Problem is chronic. - Symptoms have improved. Historical: - Allergies: no known allergies; - Home Meds: 1. calcium 500mg daily (Last dose: 10/05/2016 08:00) 2. CoQ-10 200 mg oral daily (Last dose: 10/05/2016 08:00) 3. vitamin B complex 500mg oral cap daily 4. vitamin d3 2000 units daily 5. simvastatin 20 mg Oral tab 1 tab nightly (Last dose: 10/04/2016) 6. aspirin 81 mg Oral tab 2 tabs nightly (Last dose: 10/04/2016) 7. Miralax 17 gram Oral pwpk 1 packet once daily 8. xgva 120mg monthly 9. lupron every 6 months 10. Xtandi 40 mg oral cap 3 caps once daily 11. ondansetron HCl 8 mg Oral tab 1 tab prn 12. tramadol 50 mg Oral tab 1 tab 13. ocuvite daily - PMHx: Diabetes - NIDDM: controlleddietary controlled; kidney blockage; pleural effusion; sepsis; spondylosis; Macular Degeneration; prostate cancer; - PSHx: Rotator Cuff Repair- Left; circumcision; kidney stents; Cataract Surgery- Bilateral; Carotid Endarterectomy; - Social history: Smoking status: Patient states former smoker of tobacco. No barriers to communication noted, The patient speaks fluent Pashto, Speaks appropriately for age. - Family history: Not pertinent. - : The pt / caregiver states he / she is not on anticoagulants. Home medication list is obtained from the patient, family members. - Exposure Risk Screening:: None identified. Vital Signs: 10/05 18:10 BP 158 / 79; Pulse 84; Resp 18; Temp 97.6(O); Pulse Ox 100% ; Weight 86.18 kg / 189.99 ct3 lbs (R); Height 6 ft. 2 in. (187.96 cm) (R); Pain 10/10; 19:08 BP 207 / 96 (auto/); ms18 19:10 Pulse 72 MON; Pulse Ox 99% ; ms18 19:29 BP 224 / 99 (auto/); ms18 19:30 Pulse 70 MON; Pulse Ox 99% ; ms18 19:38 BP 205 / 86 (auto/); ms18 19:38 Pulse 72 MON; Pulse Ox 98% ; ms18 20:08 BP 181 / 77 (auto/); ms18 20:09 Pulse 68 MON; Pulse Ox 96% ; ms18 20:23 BP 185 / 91 (auto/); ms18 20:24 Pulse 70 MON; Pulse Ox 96% ; ms18 20:30 Pain 7/10; ms18 20:38 BP 196 / 86 (auto/); ms18 20:39 Pulse 70 MON; Pulse Ox 96% ; ms18 20:53 BP 182 / 84 (auto/); ms18 20:54 Pulse 70 MON; Pulse Ox 96% ; ms18 21:08 BP 178 / 81 (auto/); ms18 21:09 Pulse 70 MON; Pulse Ox 98% ; ms18 21:23 BP 161 / 78 (auto/); ms18 21:24 Pulse 68 MON; Pulse Ox 98% ; ms18 21:38 BP 153 / 76 (auto/); ms18 21:39 Pulse 68 MON; Pulse Ox 97% ; ms18 21:53 BP 154 / 81 (auto/); ms18 21:54 Pulse 72 MON; Resp 18; Pulse Ox 97% ; ms18 18:10 Body Mass Index 24.39 (86.18 kg, 187.96 cm) ct3 MDM: 18:31 Urinalysis Ordered. EDMS 18:31 Urine Culture Ordered. EDMS 18:32 Bladder Scan please ordered. fg 18:32 IV Saline Lock ordered. fg 18:32 Basic Metabolic Profile Ordered. EDMS 18:50 NS 0.9% 500 ml IV at bolus once ordered. fg 18:50 fentaNYL (PF) 50 mcg IVP once ordered. fg 18:51 CBC with Diff Ordered. EDMS 18:52 Financial registration complete. ks16 18:53 [facility] Payment Agreement was scanned into [employer] and attached to record. ks16 19:01 ketorolac 30 mg IVP once ordered. fg 19:02 CT ABD & PELVIS: No Contrast Ordered. EDMS 19:18 LIPASE Ordered. EDMS 19:18 LIVER PROFILE Ordered. EDMS 21:48 Ciprofloxacin 500 mg PO once ordered. fg 22:00 oxyCODONE-acetaminophen 4 pack 5 mg-325 mg 1 packets PO once; Dispense with pt, take as fg per instruction on package ordered. 10/06 10:18 T-Sheet-- Draft Copy was scanned into [employer] and attached to record. gb Administered Medications: 10/05 19:11 Drug: NS 0.9% 500 ml [sodium chloride 0.9 % intravenous solution] Route: IV; Rate: ms18 bolus; Site: right antecubital; 20:30 Follow up: IV Status: Completed infusion; IV Intake: 500ml ms18 19:12 Drug: fentaNYL (PF) 50 mcg [fentanyl (PF) 50 mcg/mL injection solution (1 mL)] Route: ms18 IVP; Site: right antecubital; 19:39 Follow up: Response: No significant change. ms18 19:39 Drug: ketorolac 30 mg [ketorolac 30 mg/mL (1 mL) injection solution (1 mL)] Route: IVP; ms18 Site: right antecubital; 20:30 Follow up: Pain 7/10 Adult; Response: Pain is decreased ms18 21:55 Drug: Ciprofloxacin 500 mg [ciprofloxacin 500 mg tablet (1 tabs)] Route: PO; ms18 22:21 Follow up: Response: No Adverse Reaction ms18 22:20 Drug: oxyCODONE-acetaminophen 4 pack 1 packets [oxycodone-acetaminophen 5 mg-325 mg ms18 tablet (1 tabs)] {Co-Signature: [email or web address] (Olivia Guthrie RN).} Route: PO; 22:21 Follow up: Response: Med's dispensed home ms18 Signatures: Dispatcher [employer] EDMS Evelina Galaviz RN Lidia Tellez, Reg Reg gb Adri Madsen RN RN ms18 Loyda Chiang MD MD fg Sorenson, Kimberly, Reg Reg ks16 Olivia Guthrie RN mv5 The chart was reviewed and I authenticate all verbal orders and agree with the evaluation and treatment provided.Corrections: (The following items were deleted from the chart) 19:12 18:51 RENAL US+US ordered. EDMS EDMS 19:16 19:09 LIVER PROFILE+LAB ordered. EDMS EDMS : 19:10 LIPASE+LAB ordered. EDMS EDMS Attachments: 18:53 [facility] Payment Agreement [email or web address] 10/06 10:18 T-Sheet-- Draft Copy gb Chart Complete MTDD
--- NOTE | 2016-10-07 23:24 | EDDOCDS ---
Nurse's Notes [facility] Name: Jerry Ashley Age: 76 yrs Sex: Male : 1940 Arrival Date: 10/05/2016 Time: 18:08 Bed 15 Private MD: Darrell Dominguez Diagnosis: Abdominal and pelvic pain;Low back pain Presentation: 10/05 18:19 Presenting complaint: Patient states: right kidney pain- has 2 stents in. saw [facility] this am. late this afternoon increase in pain and very dark in color and minimal amount. Acute neurological deficits are not present. Mechanism of Injury: No Mechanism of Injury. Adult Sepsis Screening: The patient does not have new or worsening altered mentation. Patient's respiratory rate is less than 22. Systolic blood pressure is greater than 100. Patient has a qSOFA score of 0- Negative Sepsis Screen. Suicide/Homicide risk assessment- the patient denies having any suicidal and/or homicidal ideations and does not present with any other emotional, behavioral or mental health complaints. Status: Patient is not a service establishment attendant or dependent. Transition of care: patient was not received from another setting of care. 18:19 Acuity: TONO Level 3 [facility] 18:19 Method Of Arrival: Wheelchair [facility] Triage Assessment: 18:26 General: Appears uncomfortable, Behavior is appropriate for age, cooperative. Pain: srm Pain currently is 10 out of 10 on a pain scale. Musculoskeletal: No deficits noted. Historical: - Allergies: no known allergies; - Home Meds: 1. calcium 500mg daily (Last dose: 10/05/2016 08:00) 2. CoQ-10 200 mg oral daily (Last dose: 10/05/2016 08:00) 3. vitamin B complex 500mg oral cap daily 4. vitamin d3 2000 units daily 5. simvastatin 20 mg Oral tab 1 tab nightly (Last dose: 10/04/2016) 6. aspirin 81 mg Oral tab 2 tabs nightly (Last dose: 10/04/2016) 7. Miralax 17 gram Oral pwpk 1 packet once daily 8. xgva 120mg monthly 9. lupron every 6 months 10. Xtandi 40 mg oral cap 3 caps once daily 11. ondansetron HCl 8 mg Oral tab 1 tab prn 12. tramadol 50 mg Oral tab 1 tab 13. ocuvite daily - PMHx: Diabetes - NIDDM: controlleddietary controlled; kidney blockage; pleural effusion; sepsis; spondylosis; Macular Degeneration; prostate cancer; - PSHx: Rotator Cuff Repair- Left; circumcision; kidney stents; Cataract Surgery- Bilateral; Carotid Endarterectomy; - Social history: Smoking status: Patient states former smoker of tobacco. No barriers to communication noted, The patient speaks fluent Belarusian, Speaks appropriately for age. - Family history: Not pertinent. - : The pt / caregiver states he / she is not on anticoagulants. Home medication list is obtained from the patient, family members. - Exposure Risk Screening:: None identified. Screenin:10 Screening information is obtained from the patient. Fall risk: No risks identified. ms18 Assistance ADL's: requires no assistance with activities of daily living. Abuse/DV Screen: The patient / caregiver reports he/she is: not in a situation that causes fear, pain or injury. Nutritional screening: No deficits noted. home support is adequate. 21:54 Advance Directives: There is no living will. ms18 Assessment: 19:39 General: Appears in no apparent distress, uncomfortable, well nourished, well groomed, ms18 Behavior is appropriate for age, cooperative. Pain: Location: right mid back, anterior aspect of left lateral abdomen, posterior aspect of left lateral abdomen, right femoral area and right inguinal area Pain currently is 7 out of 10 on a pain scale. Neurological: No deficits noted. Respiratory: Airway is patent Respiratory effort is even, unlabored. : Reports not being able to produce much urine and the last time he voided, his urine was reported to be very dark. Derm: Skin is pink, warm & dry. 20:33 General: Appears in no apparent distress, comfortable, Behavior is appropriate for age, ms18 cooperative, quiet. Pain: Pain currently is 7 out of 10 on a pain scale. Neurological: No deficits noted. Respiratory: No deficits noted. Derm: Skin is pink, warm & dry. 21:47 General: Appears in no apparent distress, comfortable, Behavior is appropriate for age, ms18 cooperative. Pain: Pain currently is 1 out of 10 on a pain scale. Neurological: No deficits noted. Respiratory: No deficits noted. Derm: Skin is pink, warm & dry. 22:21 General: Appears in no apparent distress, comfortable, Behavior is appropriate for age, ms18 cooperative. Pain: Denies pain. Neurological: No deficits noted. Respiratory: Airway is patent Respiratory effort is even, unlabored. : Urine is cloudy. Derm: Skin is pink, warm & dry. Vital Signs: 18:10 BP 158 / 79; Pulse 84; Resp 18; Temp 97.6(O); Pulse Ox 100% ; Weight 86.18 kg (R); ct3 Height 6 ft. 2 in. (187.96 cm) (R); Pain 10/10; 19:08 BP 207 / 96 (auto/); ms18 19:10 Pulse 72 MON; Pulse Ox 99% ; ms18 19:29 BP 224 / 99 (auto/); ms18 19:30 Pulse 70 MON; Pulse Ox 99% ; ms18 19:38 BP 205 / 86 (auto/); ms18 19:38 Pulse 72 MON; Pulse Ox 98% ; ms18 20:08 BP 181 / 77 (auto/); ms18 20:09 Pulse 68 MON; Pulse Ox 96% ; ms18 20:23 BP 185 / 91 (auto/); ms18 20:24 Pulse 70 MON; Pulse Ox 96% ; ms18 20:30 Pain 7/10; ms18 20:38 BP 196 / 86 (auto/); ms18 20:39 Pulse 70 MON; Pulse Ox 96% ; ms18 20:53 BP 182 / 84 (auto/); ms18 20:54 Pulse 70 MON; Pulse Ox 96% ; ms18 21:08 BP 178 / 81 (auto/); ms18 21:09 Pulse 70 MON; Pulse Ox 98% ; ms18 21:23 BP 161 / 78 (auto/); ms18 21:24 Pulse 68 MON; Pulse Ox 98% ; ms18 21:38 BP 153 / 76 (auto/); ms18 21:39 Pulse 68 MON; Pulse Ox 97% ; ms18 21:53 BP 154 / 81 (auto/); ms18 21:54 Pulse 72 MON; Resp 18; Pulse Ox 97% ; ms18 18:10 Body Mass Index 24.39 (86.18 kg, 187.96 cm) ct3 Vitals: 18:10 Log In Time: October 05, 2016 at 18:07. ct3 ED Course: 18:09 Patient visited by Jailyn Mcfadden PCA. ct3 18:09 Darrell Dominguez is Private Physician. ct3 18:09 Patient moved to Waiting ct3 18:11 Patient moved to Pre RCE ct3 18:21 Triage Initiated srm 18:28 Adri Madsen,SACHIN is Primary Nurse. kr3 18:28 Loyda Chiang MD is Attending Physician. fg 18:28 Patient visited by Loyda Chiang MD. fg 18:28 Patient moved to 15 kr3 18:40 Bladder Scan completed Results: 0 mL found. Scanned multiple times and didn't find any ms18 urine at this time. 18:53 [facility] Payment Agreement was scanned into [employer] and attached to record. ks16 18:59 Patient visited by Adri Madsen RN. ms18 18:59 CBC with Diff Sent. ms18 18:59 Basic Metabolic Profile Sent. ms18 19:10 The patient / caregiver is instructed regarding the plan of care and ED course. ms18 Accompanied by Significant Other, Patient has correct armband on for positive identification. Placed in gown. Bed in low position. Call light in reach. Side rails up X2. Pulse ox on. NIBP on. Property :Personal belongings accompany Pt. 19:10 Inserted saline lock: 20 gauge in right antecubital area and blood collected. The ms18 patient tolerated the procedure well. 19:11 Patient visited by Adri Madsen RN. ms18 19:[address] ms18 19:29 Patient moved to 15 ms18 19:30 LIVER PROFILE Sent. ms18 19:30 LIPASE Sent. ms18 19:31 Patient visited by Adri Madsen RN. ms18 20:30 Patient visited by Adri Madsen RN. ms18 20:39 Patient name changed from Jerry\S\\S\Ashley\S\ to Jerry\S\ \S\Ashley. EDMS 21:07 Patient visited by Adri Madsen RN. ms18 21:07 Urinalysis Sent. ms18 21:07 Urine Culture Sent. ms18 21:47 Patient visited by Adri Madsen RN. ms18 21:51 Darrell Dominguez is Referral Physician. fg 21:51 Clif Billings is Referral Physician. fg 21:54 Discontinued IV lock intact, bleeding controlled, pressure dressing applied, No ms18 redness/swelling at site. No procedures done that require assistance. 10/06 09:32 CT ABD & PELVIS: No Contrast Returned. EDMS 10:18 T-Sheet-- Draft Copy was scanned into [employer] and attached to record. gb Administered Medications: 10/05 19:11 Drug: NS 0.9% 500 ml [sodium chloride 0.9 % intravenous solution] Route: IV; Rate: ms18 bolus; Site: right antecubital; 20:30 Follow up: IV Status: Completed infusion; IV Intake: 500ml ms18 19:12 Drug: fentaNYL (PF) 50 mcg [fentanyl (PF) 50 mcg/mL injection solution (1 mL)] Route: ms18 IVP; Site: right antecubital; 19:39 Follow up: Response: No significant change. ms18 19:39 Drug: ketorolac 30 mg [ketorolac 30 mg/mL (1 mL) injection solution (1 mL)] Route: IVP; ms18 Site: right antecubital; 20:30 Follow up: Pain 02/28 Adult; Response: Pain is decreased ms18 21:55 Drug: Ciprofloxacin 500 mg [ciprofloxacin 500 mg tablet (1 tabs)] Route: PO; ms18 22:21 Follow up: Response: No Adverse Reaction ms18 22:20 Drug: oxyCODONE-acetaminophen 4 pack 1 packets [oxycodone-acetaminophen 5 mg-325 mg ms18 tablet (1 tabs)] {Co-Signature: [email or web address] (Olivia Guthrie RN).} Route: PO; 22:21 Follow up: Response: Med's dispensed home ms18 Intake: 20:30 IV: 500.00ml; Total: 500.00ml. ms18 Order Results: Lab Order: Urine Culture; SPEC'M 10/05/16 21:04 Test: URINE CULTURE; Value: <EXTERNAL COMMENT eCWMed> FULL REPORT IN LAB NOTES (eCW and Medent).; Status: F Test: URINE CULTURE; Value: URINE CULTURE RESULT NO GROWTH; Status: F Lab Order: Urinalysis; SPEC'M 10/05/16 21:04 Test: APPEARANCE, URINE; Value: CLOUDY; Range: CLEAR; Abnormal: Above high normal; Status: F Test: COLOR, URINE; Value: YELLOW; Range: YELLOW; Status: F Test: PH,URINE; Value: 7.0; Range: 5.0-9.0; Units: UNITS; Status: F Test: SPECIFIC GRAVITY URINE AUTO; Value: 1.018; Range: 1.002-1.035; Status: F Test: PROTEIN, URINE AUTO; Value: 1+; Range: NEGATIVE; Abnormal: Above high normal; Units: mg/dL; Status: F Test: GLUCOSE, URINE (UA) AUTO; Value: NEGATIVE; Range: NEGATIVE; Units: mg/dL; Status: F Test: KETONE, URINE AUTO; Value: TRACE; Range: NEGATIVE; Abnormal: Above high normal; Units: mg/dL; Status: F Test: UROBILINOGEN, URINE AUTO; Value: 0.2; Range: 0.0-2.0; Units: mg/dL; Status: F Test: BILIRUBIN, URINE AUTO; Value: NEGATIVE; Range: NEGATIVE; Status: F Test: NITRITE, URINE AUTO; Value: NEGATIVE; Range: NEGATIVE; Status: F Test: LEUKOCYTE ESTERASE, URINE AUTO; Value: 1+; Range: NEGATIVE; Abnormal: Above high normal; Status: F Test: BLOOD, URINE BLOOD; Value: 3+; Range: NEGATIVE; Abnormal: Above high normal; Status: F Test: WBC, URINE AUTO; Value: 5; Range: 0-3; Abnormal: Above high normal; Units: /HPF; Status: F Test: RBC, URINE AUTO; Value: TNTC; Range: 0-3; Abnormal: Above high normal; Units: /HPF; Status: F Test: BACTERIA, URINE AUTO; Value: 1+; Range: NEGATIVE; Abnormal: Above high normal; Status: F Test: SQUAMOUS EPITHELIAL CELL UR AU; Value: 0; Range: 0-6; Units: /HPF; Status: F Test: MUCUS, URINE; Value: SMALL; Range: NEGATIVE; Status: F Test: HYALINE CAST, URINE AUTO; Value: 0; Range: 0-1; Units: /LPF; Status: F Test: AMORPHOUS SEDIMENT; Value: SMALL; Range: NEGATIVE; Abnormal: Above high normal; Status: F Test: CALCIUM OXALATE CRYSTALS; Value: SMALL; Range: NONE; Status: F Lab Order: Basic Metabolic Profile; SPEC'M 10/05/16 18:57 Test: GLUCOSE, FASTING; Value: 123; Range: 83-110; Abnormal: Above high normal; Units: MG/DL; Status: F Test: BLOOD UREA NITROGEN; Value: 14; Range: 7-18; Units: MG/DL; Status: F Test: CREATININE FOR GFR; Value: 1.01; Range: 0.70-1.30; Units: MG/DL; Status: F Test: GLOMERULAR FILTRATION RATE; Value: > 60.0; Range: >42; Status: F Test: SODIUM LEVEL; Value: 137; Range: 136-145; Units: MEQ/L; Status: F Test: POTASSIUM SERUM; Value: 3.7; Range: 3.5-5.1; Units: MEQ/L; Status: F Test: CHLORIDE LEVEL; Value: 101; Range: 98-107; Units: MEQ/L; Status: F Test: CARBON DIOXIDE LEVEL; Value: 27; Range: 21-32; Units: MEQ/L; Status: F Test: ANION GAP; Value: 9; Range: 8-16; Units: MEQ/L; Status: F Test: CALCIUM LEVEL; Value: 9.0; Range: 8.8-10.2; Units: MG/DL; Status: F Test Note: ; Units are mL/min/1.73 m2 Chronic Kidney Disease Staging per NKF: Stage I & II GFR >=60 Normal to Mildly Decreased Stage III GFR 30-59 Moderately Decreased Stage IV GFR 15-29 Severely Decreased Stage V GFR <15 Very Little GFR Left ESRD GFR <15 on MEAT CUTTING TEACHER Lab Order: CBC with Diff; SPEC'M 10/05/16 18:42 Test: WHITE BLOOD COUNT; Value: 8.4; Range: 4.0-10.0; Units: K/mm3; Status: F Test: RED BLOOD COUNT; Value: 4.14; Range: 4.30-6.10; Abnormal: Below low normal; Units: M/mm3; Status: F Test: HEMOGLOBIN; Value: 12.8; Range: 14.0-18.0; Abnormal: Below low normal; Units: g/dl; Status: F Test: HEMATOCRIT; Value: 39.4; Range: 42.0-52.0; Abnormal: Below low normal; Units: %; Status: F Test: MEAN CORPUSCULAR VOLUME; Value: 95.3; Range: 80.0-96.0; Units: fl; Status: F Test: MEAN CORPUSCULAR HEMOGLOBIN; Value: 30.8; Range: 27.0-33.0; Units: pg; Status: F Test: MEAN CORPUSCULAR HGB CONC; Value: 32.4; Range: 32.0-36.5; Units: g/dl; Status: F Test: RED CELL DISTRIBUTION WIDTH; Value: 13.4; Range: 11.5-14.5; Units: %; Status: F Test: PLATELET COUNT, AUTOMATED; Value: 403; Range: 150-450; Units: k/mm3; Status: F Test: NEUTROPHILS %; Value: 57.3; Range: 36.0-66.0; Units: %; Status: F Test: LYMPH %; Value: 29.3; Range: 24.0-44.0; Units: %; Status: F Test: MONO %; Value: 7.1; Range: 0.0-5.0; Abnormal: Above high normal; Units: %; Status: F Test: EOS %; Value: 3.7; Range: 0.0-3.0; Abnormal: Above high normal; Units: %; Status: F Test: BASO %; Value: 0.3; Range: 0.0-1.0; Units: %; Status: F Test: LARGE UNSTAINED CELL %; Value: 2.2; Range: 0.0-4.0; Units: %; Status: F Test: NEUTROPHILS #; Value: 4.8; Range: 1.8-7.7; Units: K/mm3; Status: F Test: LYMPH #; Value: 2.7; Range: 1.5-4.5; Units: K/mm3; Status: F Test: MONO #; Value: 0.6; Range: 0.0-0.8; Units: K/mm3; Status: F Test: EOS #; Value: 0.3; Range: 0.0-0.50; Units: K/mm3; Status: F Test: BASO #; Value: 0.0; Range: 0.0-0.2; Units: K/mm3; Status: F Test: LARGE UNSTAINED CELL #; Value: 0.2; Range: 0.0-0.4; Units: K/mm3; Status: F Lab Order: LIPASE; SPEC' 10/05/16 18:57 Test: LIPASE; Value: 82; Range: 73-393; Units: U/L; Status: F Lab Order: LIVER PROFILE; SPEC'M 10/05/16 18:57 Test: AST/SGOT; Value: 23; Range: 15-37; Units: U/L; Status: F Test: ALT/SGPT; Value: 20; Range: 12-78; Units: U/L; Status: F Test: ALKALINE PHOSPHATASE; Value: 84; Range: 45-117; Units: U/L; Status: F Test: BILIRUBIN,TOTAL; Value: 0.3; Range: 0.2-1.0; Units: MG/DL; Status: F Test: BILIRUBIN,DIRECT; Value: 0.1; Range: 0.0-0.2; Units: MG/DL; Status: F Test: TOTAL PROTEIN; Value: 7.3; Range: 6.4-8.2; Units: GM/DL; Status: F Test: ALBUMIN; Value: 3.7; Range: 3.2-5.2; Units: GM/DL; Status: F Test: ALBUMIN/GLOBULIN RATIO; Value: 1.03; Range: 1.00-1.93; Status: F Radiology Order: CT ABD & PELVIS: No Contrast Test: CT ABD & PELVIS: No Contrast REASON FOR EXAMINATION: Abdomen Pain; Clinical: Abdominal pain.; ; Comparison: 04/01/2016.; ; Findings:; ; Right kidney demonstrates a nephrostomy and ureteral stent with evidence for; moderate persistent hydroureteronephrosis as well as moderate perinephric; stranding. No obvious obstructing or ureteral calculus is identified. Acute; pyelonephritis cannot be excluded and requires correlation.; ; Lung bases are clear. Visualized heart and pericardium normal. Liver, spleen,; pancreas, gallbladder, bilateral adrenal glands and left kidney appear normal.; The enteric system is without obstruction or acute inflammatory process. Normal; terminal ileum and appendix are identified in the right lower quadrant. Colonic; and sigmoid diverticula noted without acute diverticulitis. A symmetric; appearance of the prostate gland is essentially unchanged compared to prior; examination. Abdominal aorta demonstrates atherosclerotic changes as well as; curvilinear calcification through the lumen of the infrarenal abdominal aorta; suggesting the possibility of dissection and is unchanged compared to prior; examination. Surrounding musculoskeletal structures demonstrate degenerative; changes without focal osseous abnormality.; ; Impression:; 1. Changes involving the right kidney suggest acute pyelonephritis and; correlation is required. Associated moderate hydroureteronephrosis despite; nephrostomy and ureteral stent. Left kidney appears normal.; 2. Chronic stable changes including diverticulosis, asymmetric appearance of the; prostate gland, infrarenal abdominal aortic dissection without aneurysm, and; degenerative changes of the musculoskeletal structures.; ; ; Signed by; Tejas Tristan MD 10/06/2016 08:48 A; Outcome: 21:51 Discharge ordered by Provider. fg 21:54 Discharge Assessment: Patient awake, alert and oriented x 3. No cognitive and/or ms18 functional deficits noted. Patient verbalized understanding of disposition instructions. patient administered narcotics - yes. Pt provided with safe discharge. The following High Risk Discharge criteria are identified: None. Discharged to home ambulatory, with significant other. Condition: good Condition: stable Condition: improved. Discharge instructions given to patient, significant other, Instructed on discharge instructions, follow up and referral plans. medication usage, Demonstrated understanding of instructions, medications, Pt was receptive of discharge instructions/ teaching. Prescriptions given X 1. CT Study completed. 22:23 Patient left the ED. ms18 Signatures: Dispatcher [employer] EDMS Evelina Galaviz, RN RN [facility] Lidia Condon, Reg Reg gb Laverne QuirogaRN RN kr3 Jailyn Mcfadden, SETTLEMENT PROCESSOR SETTLEMENT PROCESSOR ct3 Adri MadsenRN RN ms18 Loyda Chiang MD MD fg Sorenson, Kimberly, Reg Reg ks16 Olivia Guthrie RN [email or web address] Corrections: (The following items were deleted from the chart) 19:16 19:11 LIPASE+LAB sent. ms18 EDMS 19:16 19:11 LIVER PROFILE+LAB sent. ms18 EDMS Chart Complete MTDD
--- NOTE | 2016-10-07 23:24 | EDDOCDS ---
Physician Documentation [facility] Name: Jerry Ashely Age: 76 yrs Sex: Male : 1940 Arrival Date: 10/05/2016 Time: 18:08 Bed 15 Private MD: Darrell Dominguez Disposition: 10/05/16 21:51 Discharged to Home/Self Care. Impression: Abdominal and pelvic pain, Low back pain. - Condition is Stable. - Discharge Instructions: Abdominal Pain, Adult, Urinary Tract Infection, [id number]. - Prescriptions for Cipro 500 mg Oral Tablet - take 1 tablet by ORAL route every 12 hours; 10 tablet. - Medication Reconciliation, Local Pharmacy Hours form. - Follow up: Darrell Dominguez; When: Call to arrange an appointment; Reason: Continuance of care. Follow up: Clif Billings; When: Call to arrange an appointment; Reason: Continuance of care. - Problem is chronic. - Symptoms have improved. Historical: - Allergies: no known allergies; - Home Meds: 1. calcium 500mg daily (Last dose: 10/05/2016 08:00) 2. CoQ-10 200 mg oral daily (Last dose: 10/05/2016 08:00) 3. vitamin B complex 500mg oral cap daily 4. vitamin d3 2000 units daily 5. simvastatin 20 mg Oral tab 1 tab nightly (Last dose: 10/04/2016) 6. aspirin 81 mg Oral tab 2 tabs nightly (Last dose: 10/04/2016) 7. Miralax 17 gram Oral pwpk 1 packet once daily 8. xgva 120mg monthly 9. lupron every 6 months 10. Xtandi 40 mg oral cap 3 caps once daily 11. ondansetron HCl 8 mg Oral tab 1 tab prn 12. tramadol 50 mg Oral tab 1 tab 13. ocuvite daily - PMHx: Diabetes - NIDDM: controlleddietary controlled; kidney blockage; pleural effusion; sepsis; spondylosis; Macular Degeneration; prostate cancer; - PSHx: Rotator Cuff Repair- Left; circumcision; kidney stents; Cataract Surgery- Bilateral; Carotid Endarterectomy; - Social history: Smoking status: Patient states former smoker of tobacco. No barriers to communication noted, The patient speaks fluent Occitan, Speaks appropriately for age. - Family history: Not pertinent. - : The pt / caregiver states he / she is not on anticoagulants. Home medication list is obtained from the patient, family members. - Exposure Risk Screening:: None identified. Vital Signs: 10/05 18:10 BP 158 / 79; Pulse 84; Resp 18; Temp 97.6(O); Pulse Ox 100% ; Weight 86.18 kg / 189.99 ct3 lbs (R); Height 6 ft. 2 in. (187.96 cm) (R); Pain 10/10; 19:08 BP 207 / 96 (auto/); ms18 19:10 Pulse 72 MON; Pulse Ox 99% ; ms18 19:29 BP 224 / 99 (auto/); ms18 19:30 Pulse 70 MON; Pulse Ox 99% ; ms18 19:38 BP 205 / 86 (auto/); ms18 19:38 Pulse 72 MON; Pulse Ox 98% ; ms18 20:08 BP 181 / 77 (auto/); ms18 20:09 Pulse 68 MON; Pulse Ox 96% ; ms18 20:23 BP 185 / 91 (auto/); ms18 20:24 Pulse 70 MON; Pulse Ox 96% ; ms18 20:30 Pain 7/10; ms18 20:38 BP 196 / 86 (auto/); ms18 20:39 Pulse 70 MON; Pulse Ox 96% ; ms18 20:53 BP 182 / 84 (auto/); ms18 20:54 Pulse 70 MON; Pulse Ox 96% ; ms18 21:08 BP 178 / 81 (auto/); ms18 21:09 Pulse 70 MON; Pulse Ox 98% ; ms18 21:23 BP 161 / 78 (auto/); ms18 21:24 Pulse 68 MON; Pulse Ox 98% ; ms18 21:38 BP 153 / 76 (auto/); ms18 21:39 Pulse 68 MON; Pulse Ox 97% ; ms18 21:53 BP 154 / 81 (auto/); ms18 21:54 Pulse 72 MON; Resp 18; Pulse Ox 97% ; ms18 18:10 Body Mass Index 24.39 (86.18 kg, 187.96 cm) ct3 MDM: 18:31 Urinalysis Ordered. EDMS 18:31 Urine Culture Ordered. EDMS 18:32 Bladder Scan please ordered. fg 18:32 IV Saline Lock ordered. fg 18:32 Basic Metabolic Profile Ordered. EDMS 18:50 NS 0.9% 500 ml IV at bolus once ordered. fg 18:50 fentaNYL (PF) 50 mcg IVP once ordered. fg 18:51 CBC with Diff Ordered. EDMS 18:52 Financial registration complete. [email or web address] 18:53 [facility] Payment Agreement was scanned into [employer] and attached to record. ks16 19:01 ketorolac 30 mg IVP once ordered. fg 19:02 CT ABD & PELVIS: No Contrast Ordered. EDMS 19:18 LIPASE Ordered. EDMS 19:18 LIVER PROFILE Ordered. EDMS 21:48 Ciprofloxacin 500 mg PO once ordered. fg 22:00 oxyCODONE-acetaminophen 4 pack 5 mg-325 mg 1 packets PO once; Dispense with pt, take as fg per instruction on package ordered. 10/06 10:18 T-Sheet-- Draft Copy was scanned into [employer] and attached to record. gb Administered Medications: 10/05 19:11 Drug: NS 0.9% 500 ml [sodium chloride 0.9 % intravenous solution] Route: IV; Rate: ms18 bolus; Site: right antecubital; 20:30 Follow up: IV Status: Completed infusion; IV Intake: 500ml ms18 19:12 Drug: fentaNYL (PF) 50 mcg [fentanyl (PF) 50 mcg/mL injection solution (1 mL)] Route: ms18 IVP; Site: right antecubital; 19:39 Follow up: Response: No significant change. ms18 19:39 Drug: ketorolac 30 mg [ketorolac 30 mg/mL (1 mL) injection solution (1 mL)] Route: IVP; ms18 Site: right antecubital; 20:30 Follow up: Pain 7/10 Adult; Response: Pain is decreased ms18 21:55 Drug: Ciprofloxacin 500 mg [ciprofloxacin 500 mg tablet (1 tabs)] Route: PO; ms18 22:21 Follow up: Response: No Adverse Reaction ms18 22:20 Drug: oxyCODONE-acetaminophen 4 pack 1 packets [oxycodone-acetaminophen 5 mg-325 mg ms18 tablet (1 tabs)] {Co-Signature: [email or web address] (Olivia Guthrie RN).} Route: PO; 22:21 Follow up: Response: Med's dispensed home ms18 Signatures: Dispatcher [employer] EDMS Evelina Galaviz RN Lidia Tellez, Reg Reg gb Adri Madsen RN RN ms18 Loyda Chiang MD MD fg Sorenson, Kimberly, Reg Reg ks16 Olivia Guthrie RN mv5 The chart was reviewed and I authenticate all verbal orders and agree with the evaluation and treatment provided.Corrections: (The following items were deleted from the chart) 19:12 18:51 RENAL US+US ordered. EDMS EDMS 19:16 19:09 LIVER PROFILE+LAB ordered. EDMS EDMS : 19:10 LIPASE+LAB ordered. EDMS EDMS Attachments: 18:53 [facility] Payment Agreement [email or web address] 10/06 10:18 T-Sheet-- Draft Copy gb Chart Complete MTDD
[2016-10-22] MEDS ORDERED: OXYC1TAB23 PO (10:22)
== END 2016-10-05 22:23 | disposition home or self-care (01) ==
LOC: M ED 18:08
DX: N39.0 Urinary tract infection, site not specified (principal); C61 Malignant neoplasm of prostate; E11.9 Type 2 diabetes mellitus without complications; N28.89 Other specified disorders of kidney and ureter; H35.30 Unspecified macular degeneration; M47.9 Spondylosis, unspecified; Z79.899 Other long term (current) drug therapy; Z79.82 Long term (current) use of aspirin
CPT/HCPCS: 36415; 74176; 80048; 80076; 81001; 83690; 85025; 87086; 96361; 96374; 96375; 99284; G0463; J1885; J3010

== ENCOUNTER → 2016-10-11 | Outpatient (CLI) | payer MEDICARE, OTHER ==
--- NOTE | 2016-10-11 15:15 | REP ---
WHOLE-BODY BONE SCAN: 10/11/2016. Comparison 10/27/2015, 10/27/2012. Clinical history. Prostate carcinoma with restaging. States left knee pain for the past few weeks and fractured left wrist in early 2014. No recent fall. The patient received 21.8 mCi of technetium 99m - MDP via an IV for whole body imaging. Anterior and posterior whole body images with anterior and posterior oblique pelvis, chest, lateral head and neck along with lateral distal femurs were provided. Study demonstrates some mild increased activity mid shaft left femur, which is much reduced since the previous study, however there is new and significant uptake in the distal shaft metaphysis and medial femoral condyle on the left, entirely new from the previous study. No other left lower extremity or right lower extremity uptake abnormality. There is a new focus of increased uptake midshaft of the right humerus. Symmetric increased uptake about the AC joints, glenohumeral joints, sternoclavicular joints, unchanged. There is increased uptake in the inferior pubic ramus on the left, which is also new. SI joints, sacral ala and the iliac bones are all intact. Left humerus and the forearms were intact. The ribs show no abnormal uptake. There is increased uptake in the cervical vertebral levels consistent with degenerative change. The pattern unchanged from the previous study. No abnormal increased uptake in the calvarium or facial bones. There is activity in both kidneys with some increased activity in the right compared to left. There is activity in both ureters. I could not exclude some mild hydronephrosis on the right. Uptake in the bladder is seen. No other findings. IMPRESSION: 1. New and progressive uptake in the distal left femur and medial femoral condyle mid shaft of the right humerus and the left inferior pubic ramus compared to previous studies. The mid shaft left femur uptake is much reduced compared to the lesions as a new lesion on the 10/27/2015 exam. 2. Overall findings suggest progressive disease. Signed by Kevin Kingsley MD 10/11/2016 05:24 P
== END ==
LOC: M RAD 09:40
PROVIDERS: ATTEND Internal Medicine Medical Oncology
DX: C61 Malignant neoplasm of prostate (principal)
CPT/HCPCS: 78306; A9503

== ENCOUNTER → 2016-10-18 | Outpatient (REF) | payer MEDICARE, OTHER | LOC: M LAB REF 13:15 | PROVIDERS: ATTEND Internal Medicine Medical Oncology | DX: C61 Malignant neoplasm of prostate (principal) ==

== ENCOUNTER → 2016-10-22 | Day surgery (SDC) | payer MEDICARE, OTHER ==
[~2016-10-22] VITALS: Ht 188 cm; Wt 87.5 kg
[~2016-10-22] MED LIST changes: +CONRAY-60 60% 50ML VIAL (Q9961) As Ordered ONE; +CONRAY-60 60% 50ML VIAL (Q9961) XX ONE; +LIDOCAINE 2% 5ML JELLY UROJET As Ordered ONE; +LR 1,000 ML IV SCH; +MIDAZOLAM INJ 2 MG/2 ML VIAL (J2250) As Ordered ONE; +ONDANSETRON 4MG/2ML VIAL (J2405) As Ordered ONE; +OXYC1TAB23 PO; +PERCOCET 5MG/325MG TAB PO PRN; +PROPOFOL 200 MG/20 ML VIAL As Ordered ONE; +dexameTHASONE 4 MG/ML 1ML VIAL (J1100) As Ordered ONE; +fentaNYL 100 MCG/2 ML INJECTION (J3010) As Ordered ONE
[2016-10-22 13:45] VITALS: BP 183/77
--- NOTE | 2016-10-22 14:20 | REP ---
C-ARM VIEWS DURING RIGHT RETROGRADE PYELOGRAM: Two C-arm views are obtained. On the first image, there is contrast opacifying a mild to moderately dilated right ureter. There is contrast partially opacifying a moderately dilated right pelvicaliceal system. The second image shows a right ureteral stent with the proximal end coiled in the region of the right renal collecting system and the distal end coiled in the region of the urinary bladder. Fluoroscopy time 1 minute, 20 seconds. Signed by Eugenio Mejias MD 10/22/2016 08:33 P
--- NOTE | 2016-10-23 13:31 | RO ---
DATE OF PROCEDURE: 10/22/2016 PREPROCEDURE DIAGNOSES: Right ureteral obstruction. POSTPROCEDURE DIAGNOSES: Right ureteral obstruction. PROCEDURE: Cystoscopy, right retrograde pyelogram with intraoperative interpretation of images, right ureteral Resonance stent placement, right ureteroscopy. SURGEON: Clif Billings MD TOBACCO SAMPLE PULLER: None. ANESTHESIA: Monitored anesthesia care (MAC). 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 He had a nephroureteral stent placed several months ago and is here today to have that removed and have a stent placed. DESCRIPTION OF PROCEDURE: The patient was brought to the operating room, and MAC anesthesia was administered. Prophylactic antibiotics were infused. He was then placed in the dorsal lithotomy position and prepped and draped in the usual sterile fashion. The previously-placed right nephroureteral stent was removed. A cystoscope was inserted into the urethral meatus and advanced into the bladder. Once within the bladder, a wire was advanced up the right collecting system. The cystoscope was then removed, and the sheath for the Resonance stent was advanced over the wire up into the right collecting system. The wire was then removed, and a retrograde pyelogram was performed and was notable for mild right hydronephrosis and no extravasation. At this point, a 6-Nigerian x 26 cm Resonance stent was advanced up into the sheath and up the right collecting system. The stent was then advanced up into the right kidney using a stylet. Then, both the stylet and the sheath were removed, leaving the stent in place. There was an adequate curl of the stent in the right renal pelvis but the distal end had floated up the distal ureter. I therefore went into the distal ureter with a short semirigid ureteroscope. The distal end of the stent was then grasped with a basket and withdrawn until the end of the stent formed a curl in the bladder. The bladder was then emptied of all fluid, and this marked the conclusion of the procedure. The patient was then taken out of the dorsal lithotomy position, awakened from anesthesia, and transported to the recovery room in stable condition. ESTIMATED BLOOD LOSS: 0 mL. COMPLICATIONS: None. SPECIMENS: None. PLAN: The patient will followup in the clinic in approximately 3 months with a renal ultrasound prior to assess for any hydronephrosis. If there is no hydronephrosis, I will try to leave the stent in for another 3 months after that. MTDD
== END | disposition home or self-care (01) ==
LOC: M SDC 09:22
PROVIDERS: ATTEND Urology
DX: N13.5 Crossing vessel and stricture of ureter without hydronephrosis (principal); C61 Malignant neoplasm of prostate; I10 Essential (primary) hypertension; M12.9 Arthropathy, unspecified; E78.5 Hyperlipidemia, unspecified; E11.9 Type 2 diabetes mellitus without complications; K57.32 Diverticulitis of large intestine without perforation or abscess without bleeding; R29.898 Other symptoms and signs involving the musculoskeletal system; G62.9 Polyneuropathy, unspecified; C40.22 Malignant neoplasm of long bones of left lower limb; Z92.21 Personal history of antineoplastic chemotherapy; Z92.3 Personal history of irradiation; Z87.891 Personal history of nicotine dependence; Z96.1 Presence of intraocular lens; Z79.899 Other long term (current) drug therapy; Z79.82 Long term (current) use of aspirin
CPT/HCPCS: 52332; 74420; C2625; J0690; J1100; J2250; J2405; J3010; Q9961

== ENCOUNTER → 2016-11-29 | Outpatient (CLI) | payer MEDICARE, OTHER ==
[~2016-11-29] MED LIST changes: -COLA100C PO; +COLA100C3 PO; -CONRAY-60 60% 50ML VIAL (Q9961) As Ordered ONE; -CONRAY-60 60% 50ML VIAL (Q9961) XX ONE; -LIDOCAINE 2% 5ML JELLY UROJET As Ordered ONE; -LR 1,000 ML IV SCH; -MIDAZOLAM INJ 2 MG/2 ML VIAL (J2250) As Ordered ONE; -ONDANSETRON 4MG/2ML VIAL (J2405) As Ordered ONE; -PERCOCET 5MG/325MG TAB PO PRN; -PROPOFOL 200 MG/20 ML VIAL As Ordered ONE; -dexameTHASONE 4 MG/ML 1ML VIAL (J1100) As Ordered ONE; -fentaNYL 100 MCG/2 ML INJECTION (J3010) As Ordered ONE
== END ==
LOC: M RAD 10:41
PROVIDERS: ATTEND Orthopaedic Surgery
DX: M25.562 Pain in left knee (principal); M17.12 Unilateral primary osteoarthritis, left knee

== ENCOUNTER → 2016-12-07 | Outpatient (CLI) | payer MEDICARE, OTHER ==
--- NOTE | 2016-12-08 07:05 | RADONC ---
RADIATION ONCOLOGY CONSULTATION NOTE DATE: 12/07/2016 CHART NUMBER: [id number] DIAGNOSIS: Prostate cancer stage IV, metastatic. ECOG PERFORMANCE STATUS: 1. CONSULTATION NOTE: Mr. Ashley is a very pleasant 76-year-old white male with the diagnosis of metastatic adenocarcinoma of the prostate who is well-known to our department and has been treated for palliative bone metastases in the past. The patient presents today reporting he has significant left distal femur and knee pain. He is presenting for palliative radiation therapy to this area. A bone scan was undertaken on 10/11/2016 that shows marked uptake in the distal left femur. This corresponds to the patient's new bone pain. PAST MEDICAL HISTORY: The patient's past medical history is positive for hypertension, diabetes and arthritis. We have been treating him for prostate cancer including definitive external beam radiation therapy for his prostatic adenocarcinoma which was delivered by us in 2006. ALLERGIES: The patient has no known drug allergies. SOCIAL HISTORY: The patient had smoked one pack of cigarettes per day for 7 years. He quit in 1972. He has a drinks alcohol socially. FAMILY HISTORY: The patient's family history is positive for a mother with bladder cancer and a father with some type of stomach cancer. REVIEW OF SYSTEMS: The patient's review of systems is positive for knee pain but is for which he is taking narcotic pain medication. This is causing some constipation. The patient's review of systems is otherwise noncontributory. Denies nausea, vomiting, fevers, chills, night sweats, diplopia, headaches, anxiety or depression, anorexia, weight loss, visual disturbances, chest pain, urinary or bowel difficulties, bone pain, or neurological problems. PHYSICAL EXAMINATION: The patient is a well-developed, well-nourished male in no acute distress. HEENT exam is normocephalic, atraumatic. Extraocular movements are intact. There is no palpable cervical, supraclavicular, infraclavicular, axillary, or inguinal lymphadenopathy present. Lungs are clear to auscultation and percussion. Heart has a regular rate and rhythm. Abdomen is benign with no hepatosplenomegaly, masses, or tenderness. Rectal examination reveals a normal anal sphincter tone. Skeletal examination reveals acute tenderness present over the patient's left lower femur and knee. Extremities reveal no clubbing, cyanosis, or edema. Neurologic exam is grossly intact, as is the remainder of the physical examination. ASSESSMENT: Clearly, the patient is a candidate for palliative radiation therapy and I have so informed him. I have discussed with the patient in detail the potential benefits as well as possible acute and chronic sequelae of external beam radiation therapy. We discussed logistics of treatment planning, simulation and subsequent fractionated daily radiation treatments. I have scheduled the patient for the next available simulation slot and radiation treatments will follow subsequently. Thank you for allowing us to participate in the care of this very pleasant gentleman. If I could be of any further assistance or provide you with any information, please feel free to contact me anytime. As always, warm regards. cc: Maura Prakash MD *Darrell Dominguez, DO
--- NOTE | 2016-12-14 14:09 | RADONC ---
RADIATION ONCOLOGY SIMULATION NOTE DATE: 12/14/2016 CHART NUMBER: [id number] Mr. Ashley was taken to the CT scan for CT simulation of his left femur field. CT was accomplished without difficulty or discomfort. Radiation treatment planning is underway and radiation treatments will begin subsequently. An immobilization device was created and will be used throughout the course of treatment. I was physically present throughout the course of CT simulation.
== END ==
LOC: M ONCR 14:57
PROVIDERS: ATTEND Radiology Radiation Oncology
DX: C61 Malignant neoplasm of prostate (principal); C79.9 Secondary malignant neoplasm of unspecified site; I10 Essential (primary) hypertension; M19.90 Unspecified osteoarthritis, unspecified site; E11.9 Type 2 diabetes mellitus without complications; Z87.891 Personal history of nicotine dependence

== ENCOUNTER → 2016-12-13 | Outpatient (REF) | payer MEDICARE, OTHER | LOC: M LAB REF 16:40 | PROVIDERS: ATTEND Internal Medicine Medical Oncology | DX: C61 Malignant neoplasm of prostate (principal) ==

== ENCOUNTER 2016-12-14 15:24 | Outpatient (RCR) | payer MEDICARE, OTHER | END 2016-12-19 | LOC: M ONCR 15:24 | PROVIDERS: ATTEND Radiology Radiation Oncology | DX: C79.51 Secondary malignant neoplasm of bone (principal); C61 Malignant neoplasm of prostate ==

== ENCOUNTER → 2016-12-14 | Outpatient (CLI) | payer MEDICARE, OTHER | LOC: M RAD 13:31 | PROVIDERS: ATTEND Radiology Radiation Oncology | DX: C61 Malignant neoplasm of prostate (principal); C79.9 Secondary malignant neoplasm of unspecified site ==

== ENCOUNTER 2016-12-20 10:02 | Outpatient (RCR) | payer MEDICARE, OTHER ==
--- NOTE | 2016-12-28 07:14 | RADONC ---
RADIATION ONCOLOGY PROGRESS NOTE DATE: 12/27/2016 CHART NUMBER: [id number]. PROGRESS NOTE: Mr. Ashley is presently at a dose of 900 cGy to his left distal femur and knee and is tolerating treatments quite well at this point with no complaints related to his radiation therapy. He is having no skin discomfort. He continues to have some knee pain but this has not gotten any worse. REVIEW OF SYSTEMS: The patient's review of systems is positive for his knee pain but is otherwise noncontributory. Denies nausea, vomiting, fevers, chills, night sweats, diplopia, headaches, anxiety or depression, anorexia, weight loss, visual disturbances, chest pain, urinary or bowel difficulties, bone pain, or neurological problems. PHYSICAL EXAMINATION: The patient's skin is in good condition with no evidence of radiation change present. There is no moist or dry desquamation. The remainder of his physical exam remains unchanged. Mr. Ashley is tolerating treatments quite well and radiation will continue as scheduled.
--- NOTE | 2017-01-03 14:45 | RADONC ---
RADIATION ONCOLOGY PROGRESS NOTE DATE: 01/03/2017 CHART NUMBER: [id number] Mr. Ashley is presently at a dose of 2400 cGy to his left distal femur and is tolerating treatments quite well at this point with no complaints related to his radiation therapy. Indeed he reports that his distal femur pain has improved significantly. REVIEW OF SYSTEMS: The patient's review of systems is positive for some constipation secondary to his pain medication. It is also positive for some continued pain in the left distal femur. It is otherwise noncontributory. He denies nausea, vomiting, fevers, chills, night sweats, diplopia, headaches, anxiety or depression, anorexia, weight loss, visual disturbances, chest pain, urinary or bowel difficulties, bone pain or neurological problems. PHYSICAL EXAMINATION: The patient's skin is in good condition with no evidence of moist or dry desquamation. The remainder of his physical exam remains unchanged. Mr. Ashley is tolerating treatments quite well and radiation will continue as scheduled.
--- NOTE | 2017-01-06 05:46 | RADONC ---
RADIATION ONCOLOGY TREATMENT SUMMARY DATE: 01/05/2017 CHART NUMBER: [id number]. DIAGNOSIS: Prostate cancer. STAGE: IV, metastatic. ECOG PERFORMANCE STATUS: 1. TREATMENT SUMMARY: Mr. Ashley is a very pleasant, 76-year-old white male with the diagnosis of metastatic adenocarcinoma of prostate who presented to us for consideration of palliative radiation therapy to his left distal femur and knee. We treated the patient to his left distal femur for a total dose of 3000 cGy delivered in 10 fractions of 300 cGy each over 13 elapsed days from 12/23/2016 through 01/05/2017. The patient's femur was treated on the linear accelerator utilizing a 6MV photon beam via 3-D conformal therapy with oblique campoverde. Mr. Ashley tolerated his treatments quite well with no difficulties related to his radiation therapy. The patient did well and was able to complete therapy as prescribed without interruption. I have scheduled the patient to see me again in routine followup in 1 months' time. He will be followed by his other physicians as well. cc: Maura Prakash MD *Darrell Dominguez DO
== END 2017-01-19 ==
LOC: M ONCR 10:02
PROVIDERS: ATTEND Radiology Radiation Oncology
DX: C79.51 Secondary malignant neoplasm of bone (principal); C61 Malignant neoplasm of prostate

== ENCOUNTER → 2017-01-14 | Outpatient (REF) | payer MEDICARE, OTHER | LOC: M LAB REF 12:12 | PROVIDERS: ATTEND Internal Medicine Medical Oncology | DX: C61 Malignant neoplasm of prostate (principal) ==

== ENCOUNTER → 2017-01-20 | Outpatient (CLI) | payer MEDICARE, OTHER ==
--- NOTE | 2017-01-20 11:06 | REP ---
RENAL ULTRASOUND: HISTORY: Ureteral obstruction. The kidneys are normal in echogenicity. The right kidney measures 5.1 cm in transverse x 4 cm in AP x 12.1 cm in cephalocaudal dimensions. The left kidney measures 4 cm in transverse x 4.9 cm in AP x 12.6 cm in cephalocaudal dimensions. There is no hydronephrosis or mass. A stent is present in the right kidney and urinary bladder. There are no other filling defects in the urinary bladder. IMPRESSION: 1. Normal renal ultrasound. 2. A stent is present in the right kidney and urinary bladder. Signed by Jos eAlejandro Belcher MD 01/20/2017 11:21 A
== END ==
LOC: M RAD 09:21
PROVIDERS: ATTEND Urology
DX: N13.5 Crossing vessel and stricture of ureter without hydronephrosis (principal); Z96.0 Presence of urogenital implants

== ENCOUNTER → 2017-02-09 | Outpatient (CLI) | payer MEDICARE, OTHER ==
--- NOTE | 2017-02-10 08:02 | RADONC ---
RADIATION ONCOLOGY FOLLOWUP NOTE DATE: 02/09/2017 CHART NUMBER: DIAGNOSIS: Prostate cancer. STAGE: IV, metastatic. ECOG PERFORMANCE STATUS: 1. FOLLOWUP NOTE: Mr. Ashley is a very pleasant 76-year-old white male with the diagnosis of metastatic adenocarcinoma of the prostate who is presenting to us today for routine followup visit 1 month post completion of palliative radiation therapy to his left distal femur and knee. The patient presents today reporting that his knee pain has improved significantly. He still continues to have some mild amount of swelling and discomfort in the knee. The patient's review of systems is positive for continued knee pain and swelling but is otherwise noncontributory. He denies nausea, vomiting, fevers, chills, night sweats, diplopia, headaches, anxiety or depression, anorexia, weight loss, visual disturbances, chest pain, urinary or bowel difficulties, bone pain, or neurological problems. PHYSICAL EXAMINATION: The patient's skin over the treated field shows some tanning and erythema present. There is also some slight swelling present. It is tender to pressure. The remainder of his physical exam is noncontributory. HEENT exam is normocephalic, atraumatic. Extraocular movements are intact. There is no palpable cervical, supraclavicular, infraclavicular, axillary or inguinal lymphadenopathy present. His lungs are clear to auscultation and percussion. His heart has regular rate and rhythm. His abdomen is benign with no hepatosplenomegaly, masses or tenderness. Mr. Ashley is improving following radiation. I have instructed him on skin care and recommended he try an anti-inflammatory which may help. I have set the patient up to see me again in 8 weeks for further followup. He will also continue to be followed by his other physicians as well. cc: MD Darrell Wolff MD
== END ==
LOC: M ONCR 14:18
PROVIDERS: ATTEND Radiology Radiation Oncology
DX: C61 Malignant neoplasm of prostate (principal); C79.51 Secondary malignant neoplasm of bone

== ENCOUNTER → 2017-03-10 | Outpatient (REF) | payer MEDICARE, OTHER ==
[~2017-03-10] MED LIST changes: +ASPI81TAEC PO; +CITR1SOL PO; -CO Q200C PO; +CO Q200C10 PO; -COLA100C3 PO; +COLA100C5 PO; +DIGO0.12 PO; +ELIQ5TAB PO; -METO12TA PO; +METO1TAB7 PO; +METO1TAB87 PO; +MORP15TASA PO; +PRED10TA2 PO; +PROL60SO SC; +TOPR50TA PO; +VITA-122 PO; +XGEVINJ SC
== END ==
LOC: M LAB REF 13:23
PROVIDERS: ATTEND Internal Medicine Medical Oncology
DX: C61 Malignant neoplasm of prostate (principal)

== ENCOUNTER → 2017-03-18 | Outpatient (CLI) | payer MEDICARE, OTHER ==
[2017-03-18 15:23] LABS: BLOOD UREA NITROGEN 14 MG/DL (7-18); CREATININE FOR GFR 0.69 MG/DL (0.70-1.30); GLOMERULAR FILTRATION RATE > 60.0 (>42)
== END ==
LOC: M LAB 14:04
PROVIDERS: ATTEND Radiology Radiation Oncology
DX: C61 Malignant neoplasm of prostate (principal)

== ENCOUNTER → 2017-03-18 | Outpatient (CLI) | payer MEDICARE, OTHER ==
--- NOTE | 2017-03-19 09:06 | RADONC ---
RADIATION ONCOLOGY CONSULTATION NOTE: DATE: 03/18/2017 CHART NUMBER: [id number] DIAGNOSIS: Prostate cancer. STAGE: Metastatic. ECOG PERFORMANCE STATUS: 1 Mr. Ashley is a very pleasant 76-year-old white male with the diagnosis of metastatic adenocarcinoma of the prostate who is presenting to us today for consultation regarding possible treatment for his new low back pain. HISTORY OF PRESENT ILLNESS: The patient is well-known to our department and has been treated for metastatic prostate cancer to multiple sites in the past. The patient reports that since last , he has had significant lower back pain located mostly on the of the right side. A bone scan was done previously on 10/11/2016, which I personally reviewed and did not seem to show any uptake in that region. Of note a CT scan done 10/05/2016 showed changes involving his right kidney to suggest acute pyelonephritis. Associated moderate hydroureteronephrosis despite nephrostomy and ureteral stent was noted. ALLERGIES: The patient has NO KNOWN DRUG ALLERGIES. PAST MEDICAL HISTORY: The patient's past medical history is positive for hypertension, diabetes and arthritis. He has a history of prostate cancer as noted above. SOCIAL HISTORY: The patient has smoked one pack of cigarettes per day for 7 years. He quit 1972. He drinks alcohol socially. REVIEW OF SYSTEMS: The patient's review of systems is positive for improvement in his pain in all the treated areas including his knee but is positive for increased pain in his low back. It is otherwise noncontributory. He denies nausea, vomiting, fevers, chills, night sweats, diplopia, headaches, anxiety, depression, anorexia, weight loss, visual disturbances, chest pain, bowel difficulties. PHYSICAL EXAMINATION: The patient is a well-developed, well-nourished male in no acute distress. HEENT exam is normocephalic, atraumatic. Extraocular movements are intact. There is no palpable cervical, supraclavicular, infraclavicular, axillary, or inguinal lymphadenopathy present. Lungs are clear to auscultation and percussion. Heart has a regular rate and rhythm. Abdomen is benign with no hepatosplenomegaly, masses, or tenderness. Skeletal examination reveals no tenderness to pressure or percussion of the bony skeleton. Extremities reveal no clubbing, cyanosis, or edema. Neurologic exam is grossly intact, as is the remainder of the physical examination. ASSESSMENT: At this time I am not sure as to the cause of the pain. I am therefore ordering an MRI of the LS spine to be undertaken to see if there is any metastatic disease or physical issues which could be causing back pain. In addition, considering his history of urinary stents, I have ordered a CT scan of the abdomen and pelvis to be undertaken. I will be seeing the patient following completion of these two scans to make further suggestions and referrals as indicated. Thank you for allowing us to participate in the care of this gentleman. If I could be of any further assistance, please free to contact me anytime. As always warm regards, cc: MD Darrell Wolff MD
== END ==
LOC: M ONCR 13:14
PROVIDERS: ATTEND Radiology Radiation Oncology
DX: C61 Malignant neoplasm of prostate (principal); C79.51 Secondary malignant neoplasm of bone

== ENCOUNTER → 2017-03-21 | Outpatient (CLI) | payer MEDICARE, OTHER ==
--- NOTE | 2017-03-21 17:27 | REP ---
MRI LUMBAR SPINE WITHOUT AND WITH CONTRAST: HISTORY: Prostate carcinoma. CONTRAST: ProHance 15 mL. Decreased signal intensity on T2-weighted images is present in the lumbar intervertebral discs. The L3-4 through L5-S1 intervertebral discs are decreased in height. These findings are consistent with disc degeneration. There is no disc bulge or herniation at the L1-2 level. The L1 nerves exit the neural foramina without compression. A diffuse disc bulge is present at the L2-3 level. There is hypertrophy of the ligamenta flava and posterior articulating facets. These findings produce mild central canal stenosis. The L2 nerves exit the neural foramina without compression. A diffuse disc bulge is present at the L3-4 level. There is hypertrophy of the ligamenta flava and posterior articulating facets. These findings produce mild central canal stenosis. The L3 nerves exit the neural foramina without compression. A diffuse disc bulge is present at the L4-5 level. There is hypertrophy of the ligamenta flava and posterior articulating facets. These findings produce minimal central canal stenosis. The L4 nerves exit the neural foramina without compression. A diffuse disc bulge is present at the L5-S1 level. This abuts the thecal sac. There is hypertrophy of the posterior articulating facets. There is compression of the L5 nerves in the neural foramina. The conus medullaris is normal in appearance terminating at the level of the L1-2 intervertebral disc. Multiple areas of decreased signal intensity on T1-weighted images are present in the T12-S2 vertebral bodies. There is minimal to mild homogeneous enhancement with contrast. These findings are consistent with metastases. There is involvement of the neural arch at several levels. There is no paravertebral or epidural extension. A hemangioma is present in the L1 vertebral body. There is an old compression fracture of the L2 vertebral body with minimal height loss. IMPRESSION: 1. Mild central canal stenosis at the L2-3 and L3-4 levels secondary to disc bulge, ligamentous and facet hypertrophy. 2. Minimal central canal stenosis at the L4-5 level secondary to disc bulge, ligamentous and facet hypertrophy. 3. Diffuse disc bulge at the L5-S1 level. This abuts the thecal sac. 4. There are multiple metastatic lesions in the visualized vertebral bodies. There is no epidural or paravertebral extension. Signed by Jose Alejandro Belcher MD 03/22/2017 08:14 A
== END ==
LOC: M RAD 15:25
PROVIDERS: ATTEND Radiology Radiation Oncology
DX: C61 Malignant neoplasm of prostate (principal); M51.26 Other intervertebral disc displacement, lumbar region; M51.27 Other intervertebral disc displacement, lumbosacral region
CPT/HCPCS: 72158; A9576

== ENCOUNTER → 2017-03-23 | Outpatient (CLI) | payer MEDICARE, OTHER ==
[~2017-03-23] MED LIST changes: +GASTROGRAFIN SOLUTION 30ML (Q9963) As Ordered ONE; +ISOVUE-370 76% 100ML VIAL (Q9967) As Ordered ONE
--- NOTE | 2017-03-23 15:44 | REP ---
CT of the abdomen pelvis without and with IV contrast and with bowel contrast: Comparison is 10/05/2016. Scanning is initially performed for diaphragms to the iliac crest without IV contrast. After IV contrast enhancement. Scanning is performed during the portal venous phase of enhancement from the diaphragms to the pubic symphysis. This is followed by scanning during the delayed equilibrium phase for diaphragms to the iliac crests. There is a large right pleural effusion as an interval change. The hepatic parenchyma is homogeneous and unchanged. The gallbladder, pancreas and spleen are normal size and unremarkable. The adrenals and kidneys are unremarkable. There is a right ureteral stent, unchanged. There is no hydronephrosis. The abdominal aorta is unremarkable. There is no periaortic adenopathy. There is no mesenteric adenopathy. There is no ascites. There is no bowel distension. Pelvis: There is no ascites. No adenopathy. The the prostate appears enlarged with irregular margins and appears to have invaded the posterior bladder wall on the right. This appears to be a change from the comparison study. The bladder is otherwise unremarkable. There are no lytic, blastic or destructive skeletal changes. disease. Impression: The prostate appears enlarged and has irregular margins and appears to invade the posterior bladder wall on the right. This is a change from 10/05/2016. There is a right ureteral stent, unchanged. There is no hydronephrosis. There is no retroperitoneal or mesenteric adenopathy. There is a new large right pleural effusion. There are no lytic, blastic or destructive skeletal changes. There is an hemangioma in the L1 vertebral body and there is chronic grade 1 concave compression of the L2 inferior endplate, unchanged from prior studies. There is degenerative disc disease at every lumbar level, unchanged. Signed by Eugenio Mahoney MD 03/23/2017 03:35 P
== END ==
LOC: M RAD 10:16
PROVIDERS: ATTEND Radiology Radiation Oncology
DX: J90 Pleural effusion, not elsewhere classified (principal); M51.36 Other intervertebral disc degeneration, lumbar region; M51.37 Other intervertebral disc degeneration, lumbosacral region; M51.35 Other intervertebral disc degeneration, thoracolumbar region; C61 Malignant neoplasm of prostate
CPT/HCPCS: 74178; Q9963; Q9967

== ENCOUNTER → 2017-03-24 | Outpatient (CLI) | payer MEDICARE, OTHER ==
[~2017-03-24] MED LIST changes: -GASTROGRAFIN SOLUTION 30ML (Q9963) As Ordered ONE; -ISOVUE-370 76% 100ML VIAL (Q9967) As Ordered ONE
--- NOTE | 2017-03-24 10:12 | RADONC ---
RADIATION ONCOLOGY PROGRESS NOTE: DATE: 03/24/2017 CHART NUMBER: [id number] DIAGNOSIS: Prostate cancer. STAGE: Metastatic. ECOG PERFORMANCE STATUS: 1 Mr. Ashley is a very pleasant 78-year-old white male with the diagnosis of widely metastatic adenocarcinoma of the prostate who presented to me on 03/18/2017 complaining of low back pain. Since that time, I have obtained an MRI of the spine as well as a CT scan of the abdomen and pelvis. The MRI of the spine showed multiple areas of disc bulging which actually abuts the thecal sac at L5-S1. There is also some canal stenosis at L2-3, L3-4 and L4-5. Of note, there are multiple metastatic lesions seen in the vertebral bodies. In addition, the patient had a CT scan of the abdomen and pelvis done which is relatively stable except for some new irregular margins of the prostate which appear to invade the posterior bladder wall. The patient's review of systems continues to be positive for some back pain. He also has an issue with some hematuria, which is resolved. His review of systems is generally otherwise stable. He denies nausea, vomiting, fevers, chills, night sweats, diplopia, headaches, anxiety or depression. He does have some anorexia secondary to his narcotic pain medication. ASSESSMENT: I had a very lengthy discussion with this patient and his family lasting well over 45 minutes. We reviewed the MRI and CT findings in detail. I made clear that I do not believe the pain at this point in his back is coming from these vertebral body mets. Careful review, however, of the metastatic sites show significant bony erosion. Since these are weightbearing bones, I think it reasonable to offer him radiation at this time. If there is a contributing factor to his pain from these vertebral body metastasis, then he may improve on radiation and be able to limit his narcotic prescriptions. If the pain is coming from the disc bulging, then we may be able to at least stabilize the spine and avoid future collapse. The patient's other issue is the hematuria. He is being followed by Dr. Billings for that. I have given the patient a copy of the CT scan. I will defer to Dr. Billings with regards to his hematuria. I have discussed with the patient in detail the potential benefits, as possible acute on chronic sequelae of the external beam radiation therapy. We discussed logistics of treatment planning, simulation and subsequent fractionated daily radiation treatments to his spine. I have scheduled the patient for the next available simulation slot and radiation treatments will begin subsequently. Thank you for allowing us to participate in the care of this very pleasant gentleman. I will keep you informed as to any new developments as they occur. As always, warm regards, cc: MD Clif Wolff MD Kenneth Fish, MD
== END ==
LOC: M ONCR 08:44
PROVIDERS: ATTEND Radiology Radiation Oncology
DX: C61 Malignant neoplasm of prostate (principal); C79.51 Secondary malignant neoplasm of bone

== ENCOUNTER 2017-04-06 17:48 | Inpatient (IN) | payer MEDICARE, OTHER ==
[~2017-04-06] VITALS: Ht 185.4 cm; Wt 72.9 kg
[~2017-04-06 17:48] MED LIST changes: -ASPI81TAEC PO; -CITR1SOL PO; -DIGO0.12 PO; -ELIQ5TAB PO; -METO1TAB7 PO; -MORP15TASA PO; -PRED10TA2 PO; -PROL60SO SC; -TOPR50TA PO; -VITA-122 PO; -XGEVINJ SC
[2017-04-06] MEDS ORDERED: ONDANSETRON 4MG/2ML VIAL (J2405) IV PRN (18:00)
[2017-04-06] MEDS ORDERED: ACETAMINOPHEN TAB 650MG DOSE (2X325MG) PO PRN (18:00)
[2017-04-06 20:15] VITALS: BP 161/72
[2017-04-06] MEDS ORDERED: IPRATROPIUM 0.5MG/ALBUTEROL 2.5MG INH SOL UD 3ML (DUONEB)(J7620) NEB PRN (20:45)
[2017-04-06] MEDS ORDERED: MORPHINE 2 MG/ML 1ML SYRINGE IV ONE (21:00)
[2017-04-06 21:07] LABS: ABG BASE EXCESS 0.5 (-2.0-2.0); ABG HCO3 23.2 MEQ/L (22.0-26.0); ABG PARTIAL PRESSURE CO2 30.9 mmHg (35.0-45.0); ABG PARTIAL PRESSURE O2 114.1 mmHg (75.0-100.0); ABG TOTAL CO2 24.2 MEQ/L (23.0-31.0); ABG pH (ARTERIAL) 7.494 UNITS (7.350-7.450)
[2017-04-06 21:19] LABS: MEAN CORPUSCULAR HEMOGLOBIN 30.2 pg (27.0-33.0); MEAN CORPUSCULAR VOLUME 91.5 fl (80.0-96.0); RED CELL DISTRIBUTION WIDTH 13.9 % (11.5-14.5); WHITE BLOOD COUNT 11.7 K/mm3 (4.0-10.0)
[2017-04-06] MEDS: SENOKOT S TAB PO SCH (21:19)
[2017-04-06 21:29] LABS: INR 1.12
[2017-04-06 21:39] LABS: ALBUMIN 2.2 GM/DL (3.2-5.2); ALBUMIN/GLOBULIN RATIO 0.65 (1.00-1.93); ALKALINE PHOSPHATASE 92 U/L (45-117); ALT/SGPT 24 U/L (12-78); ANION GAP 7 MEQ/L (8-16); AST/SGOT 36 U/L (15-37); BILIRUBIN,DIRECT < 0.1 MG/DL (0.0-0.2); BILIRUBIN,TOTAL 0.3 MG/DL (0.2-1.0); BLOOD UREA NITROGEN 11 MG/DL (7-18); CALCIUM LEVEL 8.3 MG/DL (8.8-10.2); CARBON DIOXIDE LEVEL 30 MEQ/L (21-32); CHLORIDE LEVEL 103 MEQ/L (98-107); GLOMERULAR FILTRATION RATE > 60.0 (>42); GLUCOSE, FASTING 99 MG/DL (83-110); MAGNESIUM LEVEL 2.4 MG/DL (1.8-2.4); POTASSIUM SERUM 4.1 MEQ/L (3.5-5.1); SODIUM LEVEL 140 MEQ/L (136-145); TOTAL PROTEIN 5.6 GM/DL (6.4-8.2)
[2017-04-06] MEDS ORDERED: GLUCOSE 4 GM CHEW TABLET PO PRN (22:15)
[2017-04-06] MEDS ORDERED: MOM 30ML SUSPENSION UDC PO PRN (22:15)
[2017-04-06] MEDS ORDERED: GLUCAGON FOR INJ 1 MG VIAL (J1610) SC PRN (22:15)
[2017-04-06] MEDS ORDERED: DEXTROSE 50% 50 ML SYRINGE IV PRN (22:15)
[2017-04-06] MEDS ORDERED: MORP15TASA PO (23:35)
[2017-04-06] MEDS ORDERED: ASPI81TAEC PO (23:35)
[2017-04-06] MEDS ORDERED: CITR1SOL PO (23:35)
[2017-04-06] MEDS ORDERED: PROL60SO SC (23:35)
[2017-04-06] MEDS ORDERED: XGEVINJ SC (23:35)
[2017-04-06] MEDS ORDERED: PRED10TA2 PO (23:35)
[2017-04-06 23:37] VITALS: BP 143/68
[2017-04-07] VITALS (19 sets, daily range): BP systolic 97–177; BP diastolic 48–77
[2017-04-07] MEDS ORDERED: MAGNESIUM CITRATE 300 ML BTL PO PRN (02:45)
[2017-04-07] MEDS ORDERED: MIRALAX *UNIT DOSE* 17GM PACKET PO PRN (02:45)
[2017-04-07] MEDS ORDERED: PERCOCET 5MG/325MG TAB PO PRN (02:45)
[2017-04-07] MEDS: SIMVASTATIN 20 MG TAB PO SCH ×2 (05:45→20:37)
[2017-04-07] MEDS: MORPHINE 2 MG/ML 1ML SYRINGE IV PRN (05:59)
[2017-04-07 06:14] LABS: MEAN CORPUSCULAR HGB CONC 32.7 g/dl (32.0-36.5); MEAN CORPUSCULAR VOLUME 91.8 fl (80.0-96.0); RED CELL DISTRIBUTION WIDTH 13.9 % (11.5-14.5); WHITE BLOOD COUNT 10.5 K/mm3 (4.0-10.0)
[2017-04-07 06:20] LABS: ANION GAP 7 MEQ/L (8-16); BLOOD UREA NITROGEN 12 MG/DL (7-18); CALCIUM LEVEL 7.9 MG/DL (8.8-10.2); CARBON DIOXIDE LEVEL 30 MEQ/L (21-32); CHLORIDE LEVEL 103 MEQ/L (98-107); GLOMERULAR FILTRATION RATE > 60.0 (>42); GLUCOSE, FASTING 96 MG/DL (83-110); MAGNESIUM LEVEL 2.5 MG/DL (1.8-2.4); POTASSIUM SERUM 3.8 MEQ/L (3.5-5.1); SODIUM LEVEL 140 MEQ/L (136-145)
[2017-04-07] MEDS: MORPHINE 15 MG SA TAB PO SCH ×2 (08:41→20:40)
[2017-04-07] MEDS: traMADol 50 MG TAB PO SCH ×2 (08:42→20:37)
[2017-04-07] MEDS: OCUVITE 1 TAB PO SCH (08:43)
[2017-04-07] MEDS: CALCIUM/VITAMIN D 500 MG TAB PO SCH (08:43)
[2017-04-07] MEDS: SENOKOT S TAB PO SCH ×2 (08:43→20:37)
[2017-04-07] MEDS: VITAMIN B COMPLEX/VIT C CAP PO SCH (08:43)
[2017-04-07] MEDS: VITAMIN D 1,000 INTERNATIONAL UNITS TABLET PO SCH (08:44)
[2017-04-07] MEDS: predniSONE 10 MG TAB PO SCH (08:44)
[2017-04-07] MEDS ORDERED: LIDOCAINE 1% MDV INJ 50 ML VIAL SC ONE (09:30)
[2017-04-07] MEDS ORDERED: FLUMAZENIL 0.5 MG/5 ML VIAL As Ordered ONE (09:30)
[2017-04-07] MEDS ORDERED: MIDAZOLAM INJ 2 MG/2 ML VIAL (J2250) As Ordered ONE (09:31)
[2017-04-07] MEDS ORDERED: LIDOCAINE 1% MDV 20ML VIAL As Ordered ONE ×2 (09:32→12:44)
[2017-04-07] MEDS ORDERED: MIDAZOLAM INJ 2 MG/2 ML VIAL (J2250) IV ONE (09:45)
[2017-04-07] MEDS ORDERED: METOPROLOL 5 MG/5 ML VIAL As Ordered ONE (11:27)
[2017-04-07] MEDS ORDERED: METOPROLOL 5 MG/5 ML VIAL IV STA (11:38)
[2017-04-07 11:41] LABS: BF DIFF IF INDICATED? YES (NO); RBC PLEURAL FLUID 146 (<10mm3 cells/uL); TNC PLEURAL FLUID 418 cells/uL (0-20)
[2017-04-07] MEDS ORDERED: METOPROLOL TART 25 MG TABLET As Ordered ONE (11:45)
[2017-04-07] MEDS: METOPROLOL TART 25 MG TABLET PO SCH ×2 (11:49→18:56)
[2017-04-07 12:07] LABS: LDH, BODY FLUID 755 U/L (NOT ESTABLISHED); TOTAL PROTEIN, BODY FLUID 3.1 G/DL (NOT ESTABLISHED)
[2017-04-07 12:28] LABS: CC BF DIFF EXAM CYTOCENTRIFUGE
--- NOTE | 2017-04-07 13:16 | HPE ---
DATE OF ADMISSION: 04/06/2017 TIME PATIENT WAS SEEN: 2100 PRIMARY CARE PROVIDER: Dr. Darrell Dominguez STREETCAR REPAIRER HELPER: Dr. Rosas ONCOLOGIST: Dr. Prakash RADIATION ONCOLOGIST: Dr. Giordano CHIEF COMPLAINT: Increased shortness of breath. HISTORY OF PRESENT ILLNESS: 76-year-old male with past medical history of prostate cancer Stage IV with metastasis to femur, knee, back and possibly lung now, type 2 diabetes not on insulin, hypertension, hyperlipidemia, vitamin D deficiency, chronic pain, macular degeneration, hypotension, and renal stone who presented with increased shortness of breath. Per patient, he had a thoracentesis eight days ago at [place] and they drained out 1 liter and per patient fluid analysis did not show a malignancy. However, Dr. Giordano is considering scheduling a pulmonary biopsy to see if the patient has a metastasis in the lung. Otherwise, the patient admits to severe shortness of breath, however, he was satting in the lower 90s in [facility]. He was transferred over due to the size of the pleural effusion has increased. The CT of chest done in [place] shows the right hemithorax was 2/3 filled with pleural fluid and he also has right sided hydronephrosis and the patient does have a stent put in. He also has some constipation. Otherwise, the patient also was diagnosed with pneumonia back in [place] and was given seven days of Augmentin. Per patient, he has no fever or chills currently. No cough. He denies any abdominal pains, nausea, vomiting. Admits to constipation, last bowel movement was two days ago. Denies any bleeding anywhere. Admits to 60 pound weight loss in a half a year. ALLERGIES: No known drug allergies. HOME MEDICATIONS: - aspirin 160 mg one tablet by mouth daily - vitamin B complex one tablet by mouth daily - calcium with vitamin D one tablet by mouth daily - vitamin D 1000 units one tablet by mouth daily - CoQ10 200 mg one tablet by mouth daily - Colace 100 mg one tablet by mouth as needed - Xtandi 120 mg by mouth daily - Lupron 45 mg intramuscularly every 6 months - multivitamin one tablet by mouth daily - Zofran 8 mg one tablet by mouth three times a day - Percocet one tablet by mouth every 6 hours as needed - MiraLAX 17 grams by mouth daily - simvastatin 20 mg by mouth every evening - tramadol 50 mg every 6 hours as needed PAST MEDICAL HISTORY: 1. Prostate cancer with history of metastasis to the knee, femur, back and now possibly in the lung, status post radiation and chemotherapy per Dr. Prakash and Dr. Giordano. 2. Type 2 diabetes, not on insulin. 3. Hypertension. 4. Hyperlipidemia. 5. Vitamin D deficiency. 6. 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 PAST SURGICAL HISTORY: 1. Left rotator cuff repair. 2. Left carotid endarterectomy. 3. Bilateral cataract. 4. JJ-stent put in. SOCIAL HISTORY: The patient lives with his and has three kids. Currently retired. Does not smoke, drink or use any drugs. The patient was only able to walk a few steps currently. FAMILY HISTORY: Noncontributory. REVIEW OF SYSTEMS: GENERAL: Denies any recent traveling or sick contact. However, he was recently in the hospital eight days ago in [place]. He had a thoracentesis and also had a pneumonia back there, status post Augmentin treatment at home. He denies any fever or chills. Admits to shortness of breath. Admits to generalized weakness. HEENT: Denies any changes with vision, smell, hearing, taste. However, the patient admits to reduced appetite. CARDIOVASCULAR: Denies any chest pain. Admits to shortness of breath. PULMONARY: Admits to shortness of breath. Denies any lung problems in the past. GASTROINTESTINAL (GI): Denies any abdominal pains, nausea, vomiting. Admits to constipation. Denies any blood in the stool. Last bowel movement was two days ago. GENITOURINARY (): Denies any dysuria or urinary urgency or blood in the urine. MUSCULOSKELETAL: Admits to chronic pain in the extremities due to radiation. HEMATOLOGY/ONCOLOGY: Admits to prostate cancer, status post radiation and chemotherapy with metastasis to the femur, knee, back and also intra-abdominal metastasis, and now possibly also in the lung. ENDOCRINE: Admits to diabetes which was diet controlled. NEUROLOGIC: Denies any weakness on any one side of his body. Denies any change of sensations. PSYCHIATRIC: Denies any anxiety, depression. SKIN: Denies any rash or ulcerations, lumps or bumps. PHYSICAL EXAMINATION: VITAL SIGNS: Temperature 98.7. Pulse 89. Respirations 20. Blood pressure 161/72. Oxygen satting 98% on 2 liters of nasal cannula. GENERAL: The patient is a pleasant, elderly male who was alert, awake and oriented times three and does not appear to be in distress lying comfortably in bed with the head elevated at 45 degree angle. HEENT: Normocephalic, atraumatic. Extraocular movements intact. Mucous moist. NECK: Supple. No neck lymphadenopathy. CARDIOVASCULAR: Regular rate and rhythm. There is a 3/6 systolic heart murmur. LUNGS: Left side clear to auscultate, right side with reduced respiratory sound and was dull to percussion on high right side. ABDOMEN: Positive bowel sounds. Soft. Nontender. Nondistended. No peritoneal signs. No ecchymosis. EXTREMITIES: No edema, clubbing or cyanosis. SKIN: Warm and dry. NEUROLOGIC: Cranial nerves II-XII intact. No focal neurological deficit. LABORATORIES: WBC 11.7, hemoglobin 10.8, hematocrit 32.6, and platelet count of 500. Sodium 140, potassium 4.1, chloride 103, bicarbonate 30, anion gap 7, BUN 11, creatinine 0.6, fasting glucose 99, calcium 8.3, magnesium 2.4, total bilirubin 0.3, direct bilirubin 0.1, AST 36, ALT 24, alkaline phosphatase 92. BNP is pending. Protein 5.6. Albumin 2.2. ABG shows pH 7.49, pCO2 30.9, pO2 114.1 and saturation was 98.4%. Coags shows PT 14.6, INR 1.12 and PTT 26.3. There is a repeat EKG pending for the morning. The patient's portable chest x-ray shows patchiness of the right lung campoverde. Official result is pending. Will followup. ASSESSMENT AND PLAN: 76-year-old male with past medical history of Stage IV prostate cancer with metastasis to femur, knee, back and now possibly lung who follows with Dr. Giordano and Dr. Prakash and also type 2 diabetes non-insulin dependent, chronic constipation due to narcotics, hyperlipidemia, hypertension, macular degeneration, hypotension, and renal stone who presented with: 1. Increased shortness of breath, likely reaccumulation of right pleural effusion. The patient currently is satting well above 90 on 2 liters of nasal cannula. Will consult Dr. Acosta in the morning for possible surgical management. At this point, will put patient in for thoracentesis in the morning. Possible pigtail placement and possible change of plan per thoracic surgery. In addition, the patient also mentioned Dr. Giordano would like a lung biopsy. Will possibly consider lung biopsy in the patient as well. Otherwise, will hold patient's aspirin for now due to procedure and hold any anticoagulants and keep patient nothing by mouth for procedure for the morning. Monitor patient overnight. If there is an emergent need for procedure, will contact Dr. Acosta immediately. 2. Recent pneumonia status post antibiotic treatment inpatient and outpatient seven days total. Will continue to monitor. The patient did complete a course. Will hold any antibiotic at this point. Will restart antibiotic if needed. There is no fever, no chills currently. 3. EKG shows incomplete right bundle branch block and a prolonged QT in [place]. Will obtain a repeat EKG for the morning. At this point, will continue to monitor. The patient was sinus rhythm with ventricular rate of 90 at [place]. 4. Elevated BNP of 877 at [place]. However, on physical examination, the patient has no jugular venous distention (JVD) and no swelling in the lower extremities. Will consider possible echocardiogram to rule out heart failure if there is any signs of congestive heart failure (CHF). At this point, the patient denies any history of it, stating that his stress test done was in 2001 and it was all normal. 5. Anemia with hemoglobin of 10.9. Likely related to malignancy. Will continue to monitor. 6. Hyperglycemia with a glucose of 158. Likely due to type 2 diabetes non insulin dependent. Continue finger stick without coverage for now. Will add on insulin if needed. 7. Chronic constipation. The patient's last bowel movement was two days ago. Will start patient on stool softener and as needed MiraLAX. 8. Deep vein thrombosis (DVT) prophylaxis. On sequential compression device (SCD) and thromboembolic deterrent stockings (TEDS). Will hold heparin for now due to possible procedure for the morning. Will restart heparin after the procedure. 9. Fluid, electrolyte and diet. The patient is currently nothing by mouth. Will not start on any fluid for now due to possible heart failure and also increase in pleural effusion on the right side. DISPOSITION: The patient has a pleural effusion on the right side which appears to be recurrent. Last thoracentesis was seven days ago. Dr. Acosta has been consulted. Will ask him to see the patient in the morning. Otherwise, will continue to monitor the patient on the cardiac telemetry unit. The patient has been discussed with the attending doctor, Dr. Márquez. I have both independently examined this patient as well as reviewed the dictated note. I have discussed in detail with the resident the findings and plan of treatment as documented in the residents note. I will continue to follow the patient and offer further guidance to the patients care as necessary during this hospital stay. UYEN
--- NOTE | 2017-04-07 13:16 | REP ---
AP PORTABLE CHEST: 8:46 PM. Clinical history: Right pleural effusion. Comparison: CTA chest 04/06/2017, portable chest 03/28/2017. Findings: Large right pleural effusion filling most of the right hemithorax with some residual upper lung zone aeration of fluid surrounding the pleura at the apex. The left lung was clear. Heart not grossly enlarged but it may be displaced towards the left by the large pleural effusion. The aorta is without gross aneurysm. Airway is midline. Bones intact. Impression: 1. Very large right pleural effusion filling most of the right hemithorax with some residual aeration in the upper and mid lung zone but fluid also projects over the apex. 2. Left lung clear. No definite pulmonary edema. Signed by Kevin Kingsley MD 04/07/2017 09:05 A
--- NOTE | 2017-04-07 13:17 | REP ---
PA and lateral chest: Comparisons are the portable chest dated 04/06/2017 and portable chest of 03/28/[address] studies of 04/06/2017 and 03/28/2017. There is a large right pleural effusion occupying almost two thirds of the right hemithorax. There is no mediastinal shift. No pneumothorax. Left lung is clear. Cardiac size cannot be assessed as the right cardiac margin is obscured. Impression: Large right pleural effusion. Signed by Eugenio Mahoney MD 04/07/2017 08:11 A
--- NOTE | 2017-04-07 13:20 | REP ---
PORTABLE CHEST: AP portable view of the chest is performed and compared to a prior study of 04/07/2017. There is placement of a right chest tube. The previously noted large right effusion has essentially resolved. There is a tiny pneumothorax at the right costophrenic angle. Mild hazy parenchymal opacity is seen throughout the right lung. The left lung appears unchanged. The heart is normal in size. Signed by Eugenio Mejias MD 04/07/2017 05:02 P
--- NOTE | 2017-04-07 14:44 | IPNPDOC ---
Text Note Date of Service The patient was seen on 04/07/17. NOTE Subjective: Patient is a 76 year old male with a PMHx of Prostate CA (Stage IV, s/ p Chemotherapy and Radiation, Follows with Dr. Prakash and Dr. 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 Patient was admitted to [place] last week for SOB and was found to have a pleural effusion that was removed via thoracentesis (~1 liter removed). Patient presented to [facility] for SOB and was found to have reaccumulation of fluid and was transferred to [facility] for evaluation / treatment. Patient was seen and examined at the bedside. He has noted a significant improvement in his breathing after a chest tube was placed. Objective: Vitals (See below) General: Lying in bed, no acute distress, comfortable, AAOx3 HEENT: NC, AT CVS: IrIr, +S1S2 Lungs: Fair air entry b/l, improved aeration of right lower lung field Abdomen: Soft, ND, NT, +BSx4 Extremities: - Edema, - Calf tenderness Assessment and plan: 1. Dyspnea - likely 2/2 right pleural effusion, recurrent - possibly 2/2 malignancy - Presented as a transfer from [facility]; history of pleural effusion that was removed 1.5 weeks ago - Physical initially revealed decreased breath sounds prior to chest tube; after placement aeration has improved - CXR 04/07: Pre-CT; large right pleural effusion - CXR 04/07: Post-CT; Right CT, resolved effusion, tiny pneumothorax at right costophrenic angle, mild hazy parenchymal opacity is seen throughout right lung - c/w telemetry monitoring and chest tube to suction - Fluid analysis and cytology pending - c/w pain control - Cardiothoracic surgery (Dr. Acosta) on consult; appreciate his input 2. Tachycardia - 2/2 atrial fibrillation with RVR - Clinically had no symptoms; palpitations, Chest pain, SOB, nausea or diaphoresis - Physical with IrIr heart rate - EKG revealed atrial fibrillation - Will trend troponin; first set negative - s/p metoprolol 5mg IV; started metoprolol tartrate 25 mg q6h - Will hold on anticoagulation given recent surgical procedure 3. Hx of recent pneumonia - s/p antibiotics (s/p total of 7 days) 4. Normocytnic anemia - Hg stable - Will monitor 5. Leukocytosis - likely 2/2 reactive process - no fevers noted - will monitor for now 6. Thrombocytosis - likely 2/2 reactive process - no fevers noted - will monitor for now 7. Chronic constipation - c/w bowel regimen 8. Prostate CA (Stage IV) - Dx 2008 - s/p Chemotherapy and Radiation - Follows with Dr. Prakash and Dr. Alatorre 9. Hx of R ureteral stricture 2/2 mass - s/p stent 10. NIDDM2 - Not on any medications as an outpatient 11. HTN - Not on any medications as an outpatient 12. DLP - c/w Simvastatin 13. Vitamin D deficiency - c/w Calcium / Vitamin D supplements 14. DVT prophylaxis - c/w SCDs VS,Fishbone, I+O VS, Fishbone, I+O Laboratory Tests 04/06/17 20:59 Red Blood Count 3.56 L, Mean Corpuscular Volume 91.5, Mean Corpuscular Hemoglobin 30.2, Mean Corpuscular Hemoglobin Concent 33.0, Red Cell Distribution Width 13.9 04/07/17 05:36 Red Blood Count 3.40 L, Mean Corpuscular Volume 91.8, Mean Corpuscular Hemoglobin 30.0, Mean Corpuscular Hemoglobin Concent 32.7, Red Cell Distribution Width 13.9, Calcium Level 7.9 L Vital Signs Date Time Temp Pulse Resp B/P (MAP) Pulse Ox O2 Delivery O2 Flow Rate FiO2 04/07/17 11:49 135 116/75 04/07/17 08:42 18 Nasal Cannula 2.0 04/07/17 05:59 98.1 99 I&O- Last 24 Hours up to 6 AM 04/07/17 06:00 Intake Total 237 ml Output Total 125 ml Balance 112 ml JUANPABLO SAENZ MD Apr 07, 2017 14:44
--- NOTE | 2017-04-07 19:39 | ECGEPIP ---
Stationary ECG Study [facility] Test Date: 2017-04-07 Pat Name: TITUS PURCELL Department: Room: [place] [address] Gender: M Track Greaser: ELVIN : 1940 Requested By: JUANPABLO SAENZ Order Number: [id number] Reading MD: Nikos Kimbrough Measurements Intervals [place] Rate: 147 P: NC: 0 QRS: 57 QRSD: 116 T: -21 QT: 310 QTc: 485 Interpretive Statements ATRIAL FIBRILLATION WITH RAPID VENTRICULAR RESPONSE RIGHT BUNDLE BRANCH BLOCK MARKED ST DEPRESSION, CONSIDER ISCHEMIA SINCE 09/01/16 A. FIB IS NEW Electronically Signed On 04-07-2017 19:39:30 EDT by Nikos Kimbrough
[2017-04-08] MEDS: METOPROLOL TART 25 MG TABLET PO SCH ×5 (00:18→23:30)
[2017-04-08 03:45] VITALS: BP 96/53
[2017-04-08 06:33] LABS: MEAN CORPUSCULAR HEMOGLOBIN 29.5 pg (27.0-33.0); MEAN CORPUSCULAR HGB CONC 32.1 g/dl (32.0-36.5); RED CELL DISTRIBUTION WIDTH 13.5 % (11.5-14.5); WHITE BLOOD COUNT 9.9 K/mm3 (4.0-10.0)
[2017-04-08 06:37] LABS: ANION GAP 8 MEQ/L (8-16); BLOOD UREA NITROGEN 13 MG/DL (7-18); CALCIUM LEVEL 7.5 MG/DL (8.8-10.2); CARBON DIOXIDE LEVEL 28 MEQ/L (21-32); CHLORIDE LEVEL 102 MEQ/L (98-107); CREATININE FOR GFR 0.76 MG/DL (0.70-1.30); GLOMERULAR FILTRATION RATE > 60.0 (>42); GLUCOSE, FASTING 85 MG/DL (83-110); MAGNESIUM LEVEL 2.2 MG/DL (1.8-2.4); POTASSIUM SERUM 4.2 MEQ/L (3.5-5.1); SODIUM LEVEL 138 MEQ/L (136-145)
[2017-04-08 08:00] VITALS: BP 111/60
--- NOTE | 2017-04-08 08:45 | REP ---
PA and lateral chest: Comparison is the portable chest post thoracotomy tube placement of 04/07/2017. The right thoracotomy tube is again identified, unchanged. The previous large right pleural effusion is almost entirely evacuated. There are scattered focal zones of atelectasis within the re-expanded right lung. There is a focal zone of pleural thickening along the mid lateral right chest wall, possibly a pleural mass. There is slight effacement of the left costophrenic angle suggestive of a small left pleural effusion. Remainder of the left lung is clear. Cardiac size is normal. Signed by Eugenio Mahoney MD 04/08/2017 08:36 A
[2017-04-08] MEDS: CALCIUM/VITAMIN D 500 MG TAB PO SCH (08:47)
[2017-04-08] MEDS: predniSONE 10 MG TAB PO SCH (08:48)
[2017-04-08] MEDS: MORPHINE 15 MG SA TAB PO SCH ×2 (08:48→20:39)
[2017-04-08] MEDS: SENOKOT S TAB PO SCH ×2 (08:49→20:39)
[2017-04-08] MEDS: OCUVITE 1 TAB PO SCH (08:49)
[2017-04-08] MEDS: VITAMIN D 1,000 INTERNATIONAL UNITS TABLET PO SCH (08:49)
[2017-04-08] MEDS: traMADol 50 MG TAB PO SCH ×2 (08:49→20:39)
[2017-04-08] MEDS: VITAMIN B COMPLEX/VIT C CAP PO SCH (08:49)
[2017-04-08] MEDS ORDERED: BISACODYL 10 MG SUPP PR PRN (09:00)
[2017-04-08] MEDS ORDERED: ISOVUE-370 76% 100ML VIAL (Q9967) As Ordered ONE (09:04)
[2017-04-08] MEDS ORDERED: SLF 3 ML SYR IV PRN (09:45)
--- NOTE | 2017-04-08 11:25 | REP ---
CT of the chest with IV contrast: See is correlated with the PA and lateral chest performed earlier today and with CT of the chest of 04/06 2017. Of 04/06/2017 there was a large right pleural effusion. Subsequent to this CT there was a right thoracotomy tube placed and the right pleural effusion is almost entirely evacuated. On the PA view of the chest earlier today. There is a focal zone of pleural thickening in the mid lateral chest wall. By CT there is focal thickening is again identified. A tiny volume of pleural air is noted anterior to an posterior to the zone of thickening but not within the zone of thickening. CT numbers are variable within the zone of thickening extending from soft tissue range of 89 HU to complex fluid range of 23 HU and therefore this may be a combination of soft tissue and fluid density at this time. There are no destructive changes in the adjacent ribs. There is atelectasis in the right lung, likely residual from the large right pleural effusion. By CT there are multiple other focal zones of pleural thickening peripherally in the right hemithorax with similar diagnostic considerations. There are multiple tiny lung nodules of uncertain significance, unchanged from recent prior CTs. Mediastinal adenopathy is unchanged from recent prior CTs. There is a There is a tiny left pleural effusion. The thoracic aorta is unremarkable except that the ascending aorta is dilated measuring up to 4.0 cm. This calcified atheroma in the aorta. Cardiac size is normal. There are loculated pericardial fluid collections anterolaterally on the light right of the superior most measuring 3.1 cm having a Hounsfield density of 15. The more inferior measures 2.1 cm and has a Hounsfield density of 2.8. Impression: There are multiple focal areas of pleural thickening in the right hemithorax. The basilar to focal zones of thickening along the anterolateral pericardium on the right. This could represent loculated fluid collections or neoplasm. There are multiple small lung nodules . There is atelectasis in the right lung and there is a persisting small right pleural effusion. Is a tiny left pleural effusion. There is mediastinal adenopathy. Depending on clinical concerns, consideration might be given to radionuclide PET /CT scan for further evaluation of these findings. Signed by Eugenio Mahoney MD 04/08/2017 11:16 A
[2017-04-08 12:00] VITALS: BP 124/58
[2017-04-08 12:32] LABS: FREE T4 1.39 NG/DL (0.76-1.46)
[2017-04-08] MEDS: MORPHINE 2 MG/ML 1ML SYRINGE IV PRN (12:34)
--- NOTE | 2017-04-08 12:46 | IPNPDOC ---
Text Note Date of Service The patient was seen on 04/08/17. NOTE Subjective: Patient is a 76 year old male with a PMHx of Prostate CA (Stage IV, s/ p Chemotherapy and Radiation, Follows with Dr. Prakash and Dr. 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 Patient was admitted to [place] last week for SOB and was found to have a pleural effusion that was removed via thoracentesis (~1 liter removed). Patient presented to [facility] for SOB and was found to have reaccumulation of fluid and was transferred to [facility] for evaluation / treatment. Patient was seen and examined at the bedside. He denies any SOB, cough, fever / chills or chest pain at this time. Notes improved breathing after the chest tube was put in. Objective: Vitals (See below) General: Lying in bed, no acute distress, comfortable, AAOx3 HEENT: NC, AT CVS: IrIr, +S1S2 Lungs: Fair air entry b/l, improved aeration of right lower lung field; right Chest tube on suction Abdomen: Soft, ND, NT, +BSx4 Extremities: - Edema, - Calf tenderness Assessment and plan: 1. Dyspnea - likely 2/2 right pleural effusion, recurrent - possibly 2/2 malignancy - Presented as a transfer from [facility]; history of pleural effusion that was removed 1.5 weeks ago - Physical initially revealed decreased breath sounds prior to chest tube; after placement aeration has improved - CXR 04/07: Pre-CT; large right pleural effusion - CXR 04/07: Post-CT; Right CT, resolved effusion, tiny pneumothorax at right costophrenic angle, mild hazy parenchymal opacity is seen throughout right lung - c/w telemetry monitoring and chest tube to suction - Fluid analysis consistent with exudative etiology; cytology negative for malignancy - c/w pain control - Cardiothoracic surgery (Dr. Acosta) on consult; appreciate his input 2. Possible mass on right lung - CT Chest 04/08: multiple focal areas of pleural thickening in right hemithorax ; could represent loculated fluid colections / neoplasm, multipel small lung nodules, mediastinal adenopathy - Cardiothoracic surgery (Dr. Acosta) on consult; appreciate his input 3. Tachycardia - 2/2 atrial fibrillation with RVR - Clinically had no symptoms; palpitations, Chest pain, SOB, nausea or diaphoresis - Physical with IrIr heart rate - EKG revealed atrial fibrillation - Troponin x 3 sets; negative - s/p metoprolol 5mg IV; started metoprolol tartrate 25 mg q6h - Will hold on anticoagulation given recent surgical procedure 4. Hx of recent pneumonia - s/p antibiotics (s/p total of 7 days) 5. Normocytnic anemia - Hg stable - Will monitor 6. s/p Leukocytosis - likely 2/2 reactive process - no fevers noted - will monitor for now 7. Thrombocytosis - likely 2/2 reactive process - no fevers noted - will monitor for now 8. Chronic constipation - c/w bowel regimen 9. Prostate CA (Stage IV) - Dx 2008 - s/p Chemotherapy and Radiation - Follows with Dr. Prakash and Dr. Alatorre 10. Hx of R ureteral stricture 2/2 mass - s/p stent 11. NIDDM2 - Not on any medications as an outpatient 12. HTN - Not on any medications as an outpatient 13. DLP - c/w Simvastatin 14. Vitamin D deficiency - c/w Calcium / Vitamin D supplements 15. DVT prophylaxis - c/w SCDs VS,Fishbone, I+O VS, Fishbone, I+O Laboratory Tests 04/08/17 05:23 Red Blood Count 3.44 L, Mean Corpuscular Volume 92.0, Mean Corpuscular Hemoglobin 29.5, Mean Corpuscular Hemoglobin Concent 32.1, Red Cell Distribution Width 13.5, Calcium Level 7.5 L Vital Signs Date Time Temp Pulse Resp B/P (MAP) Pulse Ox O2 Delivery O2 Flow Rate FiO2 04/08/17 12:34 18 04/08/17 12:33 63 124/58 04/08/17 08:00 97.6 92 Room Air 04/07/17 23:59 2.0 I&O- Last 24 Hours up to 6 AM 04/08/17 06:00 Intake Total 720 ml Output Total 895 ml Balance -175 ml JUANPABLO SAENZ MD Apr 08, 2017 12:46
--- NOTE | 2017-04-08 13:36 | CR ---
DATE OF CONSULTATION: 04/07/2017 Patient seen at the request of the hospitalist service, Dr. Elliott, for recurrent right-sided pleural effusion. HISTORY OF PRESENT ILLNESS: Patient is a 76-year-old male with known prostatic carcinoma. It is metastatic to his bones. It was first discovered in 2005, where he underwent radiation therapy to the prostate and then had two metastases, one to his knee and one to his femur, which he underwent further radiation therapy. Last week, he started to experience chest discomfort and chest pain in his back and lateral right side. This was accompanied by increasing shortness of breath such that when he walked around the house he was getting short of breath. He presented himself to [facility], who transferred him to [place] as there were no beds here. In [place], they drained off 1000 mL. Patient tells me that the cytology at [place] was negative. He was discharged and told to followup with his oncologist. Over the last few days, he has again become more short of breath with the same chest discomfort. He has had no fever, chills or sweats and no cough, no sputum production. It is a dull aching pain that he has. There has been no dysphagia. However, he has had a 60 pound weight loss since 09/20/2016. It is notable that when he entered [place] he also did not have no chills, sweats, cough or sputum production and yet, he was told he had pneumonia. PAST MEDICAL ILLNESSES: Prior hypertension, prior diabetes. He states that he is off all medications at this point in time for those illnesses secondary to his weight loss. He also has hyperlipidemia and cerebrovascular disease status post carotid endarterectomy on the left. He also has had ureteral stent. PAST SURGERIES: The carotid endarterectomy, bilateral cataract surgery and a rotator cuff repair. MEDICATIONS: At home: - aspirin 81 mg every day - vitamin B one tablet every day - vitamin D one every day - denosumab 120 mg monthly - Xtandi 120 mg every day - Lupron 45 mg every 6 months (due at the end this year) - magnesium citrate as needed, constipation - morphine sulfate 15 mg twice a day - Zofran 8 mg as needed, vomiting and nausea - Percocet one tablet three times a day as needed, pain - prednisone 10 mg every day - simvastatin 20 mg every day - tramadol 50 mg by mouth twice a day as needed, pain TRAVEL HISTORY: He has been to the [facility] and a long time ago to [place]. OCCUPATIONAL HISTORY: To be obtained at a later time. EXPOSURE HISTORY: No exposure to tuberculosis. He has one dog, a Labrador Retriever mix rescued from the [place]. HABITS: Smoked until 1971, about 1 pack per day of Wilmer's and Rapides's. Ethyl alcohol (EtOH) none. REVIEW OF SYSTEMS: Constitutional: See history of present illness (HPI). Without fever, chills or sweats. Without night sweats. With 60 pound weight loss since August. Eyes: Without diplopia. Without prior jaundice. Without amaurosis fugax. Nose: Without epistaxis. Mouth: Has dentures. Respiratory. See HPI. Cardiac: See HPI. No history of prior myocardial infarctions. Without orthopnea or paroxysmal nocturnal dyspnea. Without leg edema. Gastrointestinal (GI): Without nausea, vomiting, but with constipation. Without diarrhea. Without melena, hematochezia, hematemesis, abdominal pain or dysphagia. Genitourinary (): See HPI. Without hematuria, dysuria. Neurologic: History of cerebrovascular disease, without symptoms however. He is status post left carotid endarterectomy. Without paresthesias, paralyses or prior seizures. Endocrine: Without present diabetes or thyroid disease. Lymphatics: Without lumps and bumps in his neck, axilla or groin that he has noted. Psychiatric: Without pathological anxieties, depression or psychoses. Hematologic: Without prolonged bleeding times. PHYSICAL EXAMINATION: General: A well-developed, under-nourished, cachectic, white male in mild distress with shortness of breath at rest. Vital signs: Temperature is 98.0. Heart rate is 87 in a sinus rhythm. Respiratory rate is 18 without the use of accessory muscles. He is 99% saturated on 2 liters nasal cannula and his blood pressure is 126/59. Eyes: Pupils equal, round and reactive to light. Extraocular movements intact. Sclerae nonicteric. Head is normocephalic. Nose: Without deformity. Mouth: Shows his mucous membranes to be pink and moist. Lips and gums without lesions. Dentures are in place. Neck is supple. There is no jugular venous distention. No subcutaneous emphysema. Trachea is midline. There are no carotid bruits, including that over the left carotid endarterectomy site. 2+ carotid upstrokes. There is no lymphadenopathy. No thyromegaly. Lungs: Show marked decreased breath sounds on the right-hand side with a dull percussion note all the way to the apex. He has E-to-A egophony on the right side. Left lung shows normal vesicular sounds. Percussion note is full to the diaphragm on the left. Cardiac exam is without murmurs, clicks, gallops or rubs. I cannot feel his point of maximum impulse (PMI). S1, S2 are normal. Abdomen: Soft. Nontender. Bowel sounds are positive. There is no hepatomegaly. No costovertebral angle (CVA) tenderness. Extremities: Show no pretibial edema. No calf tenderness. No differential swelling of the upper extremities. Skin is warm, dry and perfused. Without cyanosis or mottling, including that of the nail beds and knees. Neurologic: Shows II-XII intact along with gross motor and gross sensation intact. Gait is not tested. Psychiatric: Shows him to be awake and alert, oriented times three and conversational but with a depressed affect INVESTIGATIONS: White count today is 10.5 with hemoglobin and hematocrit of 10.2 and 31.2 respectively, and a platelet count of 472. There is no differential. Blood gases last night showed a pH of 7.49, pCO2 of 30 and a pO2 of 114 with a base excess of 0.5. Chemistries this morning show essentially normal electrolytes with a BUN and creatinine of 12 and 0.6. Glucose is 96 with a calcium of 7.9 and magnesium of 2.5. Albumin last night was 2.2. His chest x-ray shows a left pleural effusion three-quarters of the way up the chest. The CAT scan done at [facility] last night shows an almost complete pleural effusion on the right side with one compression of the upper and lower lobes. It is hard to tell if there is a mass underneath. I do not see mediastinal lymphadenopathy. Liver looks intact. There is no pericardial effusion. IMPRESSION: 1. Metastatic prostatic carcinoma. 2. Pleural effusion, unknown origin, probably malignant. 3. History of hypertension. 4. History of diabetes. 5. Cerebrovascular disease. 6. Hypoalbuminemia. PLAN AND DISCUSSION: I was originally going to have a pigtail catheter placed in him but he has way too much fluid. I will therefore place a lateral chest tube on the right side. We will completely drain the chest and send it off for salient investigations, including hematology, cytologies, bacteriology and chemistries. I suspect that it is going to be a malignant effusion. There are no signs of heart failure. He is hypoalbuminemic. I have warned the patient that he is at risk for postexpansion pulmonary edema and that he may get worse before he gets better, and in the worse case scenario he may need ventilatory support. He understands and is willing to proceed.
[2017-04-08] MEDS: SLF 3 ML SYR IV SCH ×2 (14:13→21:56)
[2017-04-08 16:00] VITALS: BP 115/57
[2017-04-08 20:09] VITALS: BP 117/58
[2017-04-08] MEDS: SIMVASTATIN 20 MG TAB PO SCH (20:38)
[2017-04-08 23:03] VITALS: BP 110/56
[2017-04-09] VITALS (7 sets, daily range): BP systolic 100–128; BP diastolic 50–75
[2017-04-09] MEDS: SLF 3 ML SYR IV SCH ×3 (05:26→22:22)
[2017-04-09] MEDS: METOPROLOL TART 25 MG TABLET PO SCH ×2 (05:26→13:21)
[2017-04-09 05:40] LABS: MEAN CORPUSCULAR HEMOGLOBIN 30.2 pg (27.0-33.0); MEAN CORPUSCULAR VOLUME 91.6 fl (80.0-96.0); RED CELL DISTRIBUTION WIDTH 13.8 % (11.5-14.5); WHITE BLOOD COUNT 10.1 K/mm3 (4.0-10.0)
[2017-04-09 05:54] LABS: ANION GAP 8 MEQ/L (8-16); BLOOD UREA NITROGEN 14 MG/DL (7-18); CALCIUM LEVEL 7.9 MG/DL (8.8-10.2); CARBON DIOXIDE LEVEL 28 MEQ/L (21-32); CHLORIDE LEVEL 102 MEQ/L (98-107); CREATININE FOR GFR 0.56 MG/DL (0.70-1.30); GLOMERULAR FILTRATION RATE > 60.0 (>42); GLUCOSE, FASTING 95 MG/DL (83-110); MAGNESIUM LEVEL 2.3 MG/DL (1.8-2.4); POTASSIUM SERUM 3.8 MEQ/L (3.5-5.1); SODIUM LEVEL 138 MEQ/L (136-145)
--- NOTE | 2017-04-09 09:21 | REP ---
Chest x-ray: Two views. History: Effusion. Comparison study: April 08, 2017. Findings: EKG monitoring electrodes overlie the chest. There is a right chest tube in place laterally, unchanged. The lungs are hyperinflated. No pleural effusion is evident. Interstitial markings are increased in the bases bilaterally, right more so than left. These markings are unchanged. Cardiomediastinal silhouette is unremarkable. There are degenerative changes in the thoracic spine. Impression: Right pleural drainage catheter remains in place. Signed by Napoleon Garrett MD 04/09/2017 11:07 A
[2017-04-09] MEDS: CALCIUM/VITAMIN D 500 MG TAB PO SCH (09:27)
[2017-04-09] MEDS: OCUVITE 1 TAB PO SCH (09:27)
[2017-04-09] MEDS: VITAMIN D 1,000 INTERNATIONAL UNITS TABLET PO SCH (09:27)
[2017-04-09] MEDS: predniSONE 10 MG TAB PO SCH (09:27)
[2017-04-09] MEDS: SENOKOT S TAB PO SCH ×2 (09:30→20:33)
[2017-04-09] MEDS: traMADol 50 MG TAB PO SCH ×2 (09:32→22:28)
[2017-04-09] MEDS: MORPHINE 15 MG SA TAB PO SCH ×2 (09:34→22:23)
--- NOTE | 2017-04-09 12:23 | IPN ---
DATE OF SERVICE: 04/09/2017 Mr. Ashley is draining much less from his chest tube. His pain is being well controlled at the chest tube insertion site. He is breathing much better, and he is not coughing or producing sputum. Going over his CAT scan results. See discussion below. His vital signs show a maximum temperature (Tmax) of 98.6 with a heart rate that ranges between 63 and 65 in a sinus rhythm. Respiratory rate is constant at 18, who is 94% to 97% saturated on room air, and his blood pressure is ranging between 105/56 to 117/55. His intake and output over the past 24 hours has been recorded as 720 in and 370 out for a positivity of 350 mL. He has put out 20 mL from the chest tube, and there is no air leak. Weight today is 74.8 kg compared to 73.2 kg yesterday. On physical examination, his lungs show equal breath sounds on either side. Percussion note is full to the diaphragm. He has essentially normal vesicular sounds with occasional rhonchi, which clear with coughing. Cardiac examination is without murmurs, clicks, gallops, or rubs. I cannot feel his point of maximum impulse (PMI). S1, S2 are normal. Abdomen: Soft. Nontender. Bowel sounds are positive. There is no hepatomegaly. No costovertebral angle (CVA) tenderness. Extremities: Show no pretibial edema. No calf tenderness. No differential swelling of the upper extremities. Skin is warm, dry, and perfused without cyanosis or mottling, including that of the nail beds and the knees. Neck is supple. There is no jugular venous distention. No subcutaneous emphysema. Trachea is midline. Mouth shows his mucous membranes to be pink and moist. Lips and commissures without lesions. There is no thrush. Eyes show his pupils to be equal and reactive. Extraocular motor intact. Sclerae anicteric. Neurologic: Shows II-XII intact, along with gross motor and gross sensation intact. Gait is not tested. Psychiatric: Shows him to be awake and alert, oriented times three with appropriate mood and affect and conversational. His white count today is 10.1 essentially unchanged from yesterdays of 9.9 with a hemoglobin and hematocrit of 9.6 and 29.0. Platelet count is 461 and stable. Chemistries show normal electrolytes with a BUN and creatinine of 14 and 0.56 with a glucose of 7.9 and a magnesium of 2.3. I discussed his pleural fluid yesterday. Pathology has been returned without evidence of malignancy. MICROBIOLOGY: Showed no organisms on gram stain and no growth aerobically or anaerobically. His chest x-ray today shows the lung fully expanded to the chest wall. There is some mild blunting of the costophrenic angle on the right. He looks to have a loculated effusion or a small mass in the upper lateral portion of the chest wall. He has postcompressive changes. His chest CT done yesterday shows bilateral lesions on either side, essentially too numerous to count. There is a predominant lesion in the right upper lobe, but there are numerous small nodules throughout both upper and lower lobes. He also has nodules on the left side. There is a mass on the right lateral chest wall, which corresponds to the mass I see on the chest x-ray. It is smooth-walled and slightly heterogenous. I cannot tell if it is pleural-based or within the lung, although I suspect it is pleural-based. His sagittal reconstruction shows that much better. Adrenals are intact, as is the liver. IMPRESSION: 1. Metastatic prostatic carcinoma. 2. Multiple nodules in both lungs, no doubt prostatic metastases. 3. Pleural effusion, most likely malignant without shedding cells. 4. History of hypertension. 5. History of diabetes. 6. Cerebrovascular disease. 7. Hypoalbuminemia. PLAN AND DISCUSSION: I have had a long talk with Mr. Ashley. I am very sure that his lung lesions represent metastatic prostatic carcinoma. He has already had metastatic disease to his femur and knee. While prostatic cancer usually does not go to the lung parenchyma, it certainly can. I suspect that his pleural effusion is also metastatic, but the cells are not being shed into the fluid and, hence, the negative malignancy report. He will need to be set up with oncology. I am gratified that he has not put that much out of the chest tube, but I will continue the chest tube at least 24 more hours to make sure that is not spurious. I suspect if oncology cannot get this under control, he will need a PleurX catheter in the future. Edited 04/10/2017 11:22 a.m. aml
[2017-04-09] MEDS: VITAMIN B COMPLEX/VIT C CAP PO SCH (13:17)
--- NOTE | 2017-04-09 13:44 | IPNPDOC ---
Text Note Date of Service The patient was seen on 04/09/17. NOTE Subjective: Patient is a 76 year old male with a PMHx of Prostate CA (Stage IV, s/ p Chemotherapy and Radiation, Follows with Dr. Prakash and Dr. Alatorre, Dx 2008), Hx of R ureteral stricture 2/2 mass (s/p stent), NIDDM2, HTN, DLP, and Vitamin D deficiency who presented as a transfer from [facility] for increasing shortness of breath. Patient was admitted to [place] last week for SOB and was found to have a pleural effusion that was removed via thoracentesis (~1 liter removed). Patient presented to [facility] for SOB and was found to have reaccumulation of fluid and was transferred to [facility] for evaluation / treatment. Patient was seen and examined at the bedside. Patient has not had any events overnight. He noted some pain around the chest tube site. No other problems noted. Objective: Vitals (See below) General: Lying in bed, no acute distress, comfortable, AAOx3 HEENT: NC, AT CVS: RRR, +S1S2 Lungs: Fair air entry b/l, improved aeration of right lower lung field; right Chest tube on suction Abdomen: Soft, ND, NT, +BSx4 Extremities: - Edema, - Calf tenderness Assessment and plan: 1. Dyspnea - likely 2/2 right pleural effusion, recurrent - possibly 2/2 malignancy - Presented as a transfer from [facility]; history of pleural effusion that was removed 1.5 weeks prior to arrival - Physical initially revealed decreased breath sounds prior to chest tube; after placement aeration has improved - CXR 04/07: Pre-CT; large right pleural effusion - CXR 04/07: Post-CT; Right CT, resolved effusion, tiny pneumothorax at right costophrenic angle, mild hazy parenchymal opacity is seen throughout right lung - CXR 04/09: Right pleural drainage catheter remains in palce - c/w telemetry monitoring and chest tube to suction - Fluid analysis consistent with exudative etiology; cytology negative for malignancy - c/w pain control - Cardiothoracic surgery (Dr. Acosta) on consult; appreciate his input - Plan to keep chest tube in for 24 hours to observe if drainage has subsided, and remove on 04/10 if no additional fluid is collected - Will have patient follow up with Oncology (Dr. Prakash) - If symptoms recur in future, pleurodesis may be required, however at this time it is not indicated 2. Possible mass on right lung / multiple nodules - likely 2/2 metastatic disease - CT Chest 04/08: multiple focal areas of pleural thickening in right hemithorax ; could represent loculated fluid colections / neoplasm, multipel small lung nodules, mediastinal adenopathy - Cardiothoracic surgery (Dr. Acosta) on consult; appreciate his input 3. Tachycardia - 2/2 atrial fibrillation with RVR - Clinically had no symptoms; palpitations, Chest pain, SOB, nausea or diaphoresis - Physical revealed IrIr heart rate after procedure; currently RRR - EKG revealed atrial fibrillation - Troponin x 3 sets; negative - s/p metoprolol 5mg IV; has been on metoprolol tartrate 25 mg q6h - Will transition to metoprolol succinate 50 BID - Will hold on anticoagulation given recent surgical procedure 4. Hx of recent pneumonia - s/p antibiotics (s/p total of 7 days) 5. Normocytnic anemia - Hg stable - Will monitor 6. s/p Leukocytosis - likely 2/2 reactive process - no fevers noted - will monitor for now 7. Thrombocytosis - likely 2/2 reactive process - no fevers noted - will monitor for now 8. Chronic constipation - c/w bowel regimen 9. Prostate CA (Stage IV) - Dx 2008 - s/p Chemotherapy and Radiation - Follows with Dr. Prakash and Dr. Alatorre 10. Hx of R ureteral stricture 2/2 mass - s/p stent 11. NIDDM2 - Not on any medications as an outpatient 12. HTN - Not on any medications as an outpatient 13. DLP - c/w Simvastatin 14. Vitamin D deficiency - c/w Calcium / Vitamin D supplements 15. DVT prophylaxis - c/w SCDs VS,Fishbone, I+O VS, Fishbone, I+O Laboratory Tests 04/09/17 05:14 Red Blood Count 3.16 L, Mean Corpuscular Volume 91.6, Mean Corpuscular Hemoglobin 30.2, Mean Corpuscular Hemoglobin Concent 33.0, Red Cell Distribution Width 13.8, Calcium Level 7.9 L Vital Signs Date Time Temp Pulse Resp B/P (MAP) Pulse Ox O2 Delivery O2 Flow Rate FiO2 04/09/17 13:21 62 107/58 04/09/17 11:59 97.0 18 98 Room Air 04/07/17 23:59 2.0 I&O- Last 24 Hours up to 6 AM 04/09/17 06:00 Intake Total 720 ml Output Total 360 ml Balance 360 ml JUANPABLO SAENZ MD Apr 09, 2017 13:43
--- NOTE | 2017-04-09 15:35 | RO ---
DATE OF PROCEDURE: 04/07/2017 PREPROCEDURE DIAGNOSIS: Right sided pleural effusion. POSTPROCEDURE DIAGNOSIS: Right sided pleural effusion. PROCEDURE: Insertion of right lateral chest tube. SURGEON: Dr. Levy Acosta. ANESTHESIA: PROCEDURE: Under satisfactory moderate sedation with 2 mg of Versed. The patient was prepped and draped in the usual sterile fashion. The skin, subcutaneous tissue and pleura over the approximate 7th rib was infiltrated with 1% Xylocaine. Incision was made and a tunnel was created into the chest without difficulty. A #24 chest tube was placed. This was secured to the chest wall with #2 Tevdek suture and drained of 3,000 mL of serous sanguinous fluid connected to the Pleur-evac. The patient tolerated the procedure well and a chest x-ray is pending. Monitored sedation of 20 min. MTDD
[2017-04-09] MEDS ORDERED: METOPROLOL SUCC (TopROL XL) 50MG **XL** TAB PO ONE (18:00)
[2017-04-09] MEDS: SIMVASTATIN 20 MG TAB PO SCH (20:33)
--- NOTE | 2017-04-09 23:50 | IPNPDOC ---
Text Note Date of Service The patient was seen on 04/09/17. NOTE Evening resident and attending was notified that patient had 4 beats of VT, and had 14 beats of VT yesterday. After reviewing charts, there is no electrolytes abnormalities. Will continue to monitor patient. Patient is already on beta robe. Patient has been discussed with Dr. Valdovinos. VS,[place], I+O VS, [place], I+O Laboratory Tests 04/09/17 05:14 Red Blood Count 3.16 L, Mean Corpuscular Volume 91.6, Mean Corpuscular Hemoglobin 30.2, Mean Corpuscular Hemoglobin Concent 33.0, Red Cell Distribution Width 13.8, Calcium Level 7.9 L Vital Signs Date Time Temp Pulse Resp B/P (MAP) Pulse Ox O2 Delivery O2 Flow Rate FiO2 04/09/17 20:35 Room Air 04/09/17 20:00 98.4 66 18 106/55 (72) 100 04/07/17 23:59 2.0 I&O- Last 24 Hours up to 6 AM 04/09/17 06:00 Intake Total 720 ml Output Total 360 ml Balance 360 ml GME ATTESTATION GME ATTESTATION My preceptor for this patient encounter was physically present in the building during the encounter and was fully available. As needed, all aspects of the patient interview, examination, medical decision making process, and medical care plan development were reviewed and approved by the preceptor. Preceptor is aware and concurs with the plan as stated in the body of this note and will attest to such by his/her cosignature. KIMBERLY GRAMAJO DO Apr 09, 2017 23:49
[2017-04-10 04:45] VITALS: BP 119/58
[2017-04-10] MEDS: SLF 3 ML SYR IV SCH ×3 (05:07→22:57)
[2017-04-10 05:40] LABS: MEAN CORPUSCULAR HEMOGLOBIN 29.9 pg (27.0-33.0); MEAN CORPUSCULAR HGB CONC 32.7 g/dl (32.0-36.5); MEAN CORPUSCULAR VOLUME 91.3 fl (80.0-96.0)
[2017-04-10 06:03] LABS: ANION GAP 9 MEQ/L (8-16); BLOOD UREA NITROGEN 11 MG/DL (7-18); CALCIUM LEVEL 7.7 MG/DL (8.8-10.2); CARBON DIOXIDE LEVEL 29 MEQ/L (21-32); CHLORIDE LEVEL 103 MEQ/L (98-107); GLOMERULAR FILTRATION RATE > 60.0 (>42); GLUCOSE, FASTING 101 MG/DL (83-110); MAGNESIUM LEVEL 2.2 MG/DL (1.8-2.4); POTASSIUM SERUM 3.9 MEQ/L (3.5-5.1); SODIUM LEVEL 141 MEQ/L (136-145)
[2017-04-10 08:00] VITALS: BP 108/56
[2017-04-10] MEDS: OCUVITE 1 TAB PO SCH (09:38)
[2017-04-10] MEDS: VITAMIN B COMPLEX/VIT C CAP PO SCH (09:38)
[2017-04-10] MEDS: VITAMIN D 1,000 INTERNATIONAL UNITS TABLET PO SCH (09:38)
[2017-04-10] MEDS: predniSONE 10 MG TAB PO SCH (09:39)
[2017-04-10] MEDS: METOPROLOL SUCC (TopROL XL) 50MG **XL** TAB PO SCH ×2 (09:39→22:56)
[2017-04-10] MEDS: traMADol 50 MG TAB PO SCH ×2 (09:41→22:57)
[2017-04-10] MEDS: MORPHINE 15 MG SA TAB PO SCH ×2 (09:41→22:57)
[2017-04-10] MEDS: CALCIUM/VITAMIN D 500 MG TAB PO SCH (09:41)
[2017-04-10] MEDS: SENOKOT S TAB PO SCH ×2 (09:41→22:56)
--- NOTE | 2017-04-10 10:01 | IPN ---
DATE: 04/08/2017 Mr. Ashley is awake and alert today, and feeling fairly well. He is breathing much better. There is some pain at the chest tube insertion site which is being controlled with oral analgesics. His vital signs show a T-max of 98.2 with a heart rate that ranges between 65 and 64 and is sinus rhythm with a respiratory rate of 20 without the use of accessory muscles, who is 94% saturation on room air, and whose blood pressure is ranging between 104/48 to 196/53. His intake and output over the past 24 hours has been recorded as 720 in and 885 out for a negativity of 165. The output from the initial insertion of the chest tube is not recorded, which was 3000 mL. He has put 410 mL out the chest tube since insertion with 90 mL since midnight. His weight is 73.2 kg compared to 74.7 kg yesterday. PHYSICAL EXAMINATION: LUNGS: Show equal breath sounds on either side. Percussion notes are full to the diaphragm. He has some inspiratory rales on the right side. CARDIAC EXAM: Without murmurs, clicks, gallops or rubs. I cannot feel his point of maximum impulse (PMI). S1, S2 are normal. ABDOMEN: Soft. Nontender. Bowel sounds are positive. There is no hepatomegaly. No costovertebral angle (CVA) tenderness. EXTREMITIES: Show no pretibial edema. No calf tenderness. No differential swelling of the upper extremities. SKIN: Warm, dry and perfused without cyanosis, including that of the nail beds and knees. NECK: Supple. There is no jugular venous distention (JVD). No subcutaneous emphysema. Trachea is midline. MOUTH: Shows his mucous membranes to pink and moist. Lips and commissures without lesions. No thrush. EYES: Show is pupils to be equal and reactive, extraocular motors intact. Sclera nonicteric. NEURO: Shows II-XII intact along with gross motor and gross sensation intact. Gait is not tested. PSYCHIATRIC: Shows him to be awake and alert, oriented times three with appropriate mood and affect, and conversational. White count today is 9.9 with hemoglobin and hematocrit of 10.2 and 31.7. Platelet count of 499. Chemistries today show normal electrolytes with a BUN and creatinine of 13 and 0.76. Glucose is 85 with a calcium of 7.5 and a magnesium of 2.2. His chest x-ray today shows the lung fully expanded to the chest wall. There is a slight blunting of the right costophrenic angle. There looks to be some probable post expansion edema in the right lower lobe. There is also a small loculated collection in the upper cupula on the lateral chest wall. There is no pneumothorax and the chest tube is in good place posteriorly. IMPRESSION: 1. Right pleural effusion, probably malignant. 2. Known metastatic prostatic cancer. 3. Prior hypertension. 4. Prior diabetes. 5. 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 PLAN AND DISCUSSION: Now that the fluid is drained, I will obtain a CT with contrast to see what is underlying in lung. There has been a reported lung mass , although I do not see one other than a potential small loculated effusion in the upper cupula on the chest x-ray. It should be noted that his pleural fluid has come back with a pH of 7.6, a glucose of 106, with an LDH of 755, corresponding to serum LDH of 546, with 418 nucleated cells, 18% neutrophils, 52% lymphocytes, 27% are eosinophils. This looks to be an exudative predominantly lymphocytic but chronic effusion. I suspect is going to be malignant without a lot of cells in it, but with malignant non shedding studs of the pleural surface. MTDD
[2017-04-10 11:34] VITALS: BP 124/61
--- NOTE | 2017-04-10 11:35 | IPN ---
DATE OF SERVICE: 04/10/2017 Mr. Ashley is breathing well today. His pain is well controlled at the chest tube insertion site. The chest tube has only put out 170 mL overnight and 20 mL the day before. His weight today is 74 kg compared to 78.8 yesterday. His vital signs show a maximum temperature (Tmax) of 98.4 with a heart rate that ranges between 66 and 63 in a sinus rhythm. Respiratory rate that is constant at 18, and who is 97% to 96% saturated on room air, and blood pressure is ranging between 108/56 to 119/58. His intake and output (I and O) were discussed above. He has taken in only 520 mL in by mouth intake. On physical examination, his lungs show normal vesicular sounds, which are equal on either side. Percussion note is full to the diaphragm. Cardiac examination shows a 2/6 systolic ejection murmur at the left upper sternal border, which I had not detected before. I cannot feel his point of maximum impulse (PMI). S1, S2 are normal. Abdomen: Soft. Nontender. Bowel sounds are positive. There is no hepatomegaly. No costovertebral angle (CVA) tenderness. Extremities: Show no pretibial edema. No calf tenderness. No differential swelling of the upper extremities. Skin is warm, dry, and perfused without cyanosis or mottling, including that of the nail beds and the knees. Neck is supple. There is no jugular venous distention. No subcutaneous emphysema. Trachea is midline. Mouth shows his mucous membranes to be pink and moist. Lips and commissures without lesions. There is no thrush. Eyes show his pupils to be equal and reactive. Extraocular motor intact. Sclerae anicteric. Neurologic: Shows II-XII intact, along with gross motor and gross sensation intact. Gait is not tested. Psychiatric: Shows him to be awake and alert, oriented times three with appropriate mood and affect and conversational. His white count today is 9.0 with a hemoglobin and hematocrit of 9.3 and 28.5 slightly down from yesterday's of 9.6 and 29.0. This is probably secondary to hemodilution with a positive fluid balance of 560. There is no differential. Platelet count is 441 and stable. Chemistries show normal electrolytes with a BUN and creatinine of 11 and 0.6, a glucose of 107 and a calcium of 7.7 with a magnesium of 2.2. His chest x-ray shows his lung fully expanded to the chest wall. Right costophrenic angle is slightly blunted. The left diaphragm is very flat, but there is no air fluid level. I see no other infiltrates. There are no posterior infiltrates on the lateral film. IMPRESSION: 1. 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 2. Known metastatic prostatic cancer. 3. Prior hypertension. 4. Prior diabetes. 5. Prior metastatic disease to femur bone. PLAN AND DISCUSSION: The family tells me that he has metastases to his spine. He is going to be seeing Dr. Giordano for these. I am going to remove his chest tube today. I am very sure that the pleural involvement are not shedding cells; and, therefore, the fluid count is back negative for malignant cells. Nonetheless, has noted a malignant pleural effusion. After removing his chest tube, we will ambulate him and get him to take more by mouth intake. I can see no reason why he should not be discharged in the morning with a followup with oncology shortly thereafter. He is ambulatory at home with a walker. We are going to ambulate him in the halls today.
--- NOTE | 2017-04-10 14:13 | IPNPDOC ---
Text Note Date of Service The patient was seen on 04/10/17. NOTE Subjective: Patient is a 76 year old male with a PMHx of Prostate CA (Stage IV, s/ p Chemotherapy and Radiation, Follows with Dr. Prakash and Dr. 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 Patient was admitted to [facility] last week for SOB and was found to have a pleural effusion that was removed via thoracentesis (~1 liter removed). Patient presented to [facility] for SOB and was found to have reaccumulation of fluid and was transferred to [facility] for evaluation / treatment. Patient was seen and examined at the bedside. Patient has had a reduced output from the chest tube, plan to have it removed today. No chest pain, shortness of breath or palpitations. Objective: Vitals (See below) General: Lying in bed, no acute distress, comfortable, AAOx3 HEENT: NC, AT CVS: RRR, +S1S2 Lungs: Fair air entry b/l, improved aeration of right lower lung field; right Chest tube on suction Abdomen: Soft, ND, NT, +BSx4 Extremities: - Edema, - Calf tenderness Assessment and plan: Dyspnea - likely 2/2 right pleural effusion, recurrent - possibly 2/2 malignancy - Presented as a transfer from [facility]; history of pleural effusion that was removed 1.5 weeks prior to arrival - Physical initially revealed decreased breath sounds prior to chest tube; after placement aeration has improved - CXR 04/07: Pre-CT; large right pleural effusion - CXR 04/07: Post-CT; Right CT, resolved effusion, tiny pneumothorax at right costophrenic angle, mild hazy parenchymal opacity is seen throughout right lung - CXR 04/09: Right pleural drainage catheter remains in place - c/w telemetry monitoring and chest tube to suction - Fluid analysis consistent with exudative etiology; cytology negative for malignancy - c/w pain control - Cardiothoracic surgery (Dr. Acosta) on consult; appreciate his input - Plan for removal of chest tube today; follow up with Oncology (Dr. Prakash) Possible mass on right lung / multiple nodules - likely 2/2 metastatic disease - CT Chest 04/08: multiple focal areas of pleural thickening in right hemithorax ; could represent loculated fluid collections / neoplasm, multiple small lung nodules, mediastinal adenopathy - Cardiothoracic surgery (Dr. Acosta) on consult; appreciate his input s/p Tachycardia - 2/2 atrial fibrillation with RVR - Clinically had no symptoms; palpitations, Chest pain, SOB, nausea or diaphoresis - Physical revealed IrIr heart rate after procedure; currently RRR - EKG revealed atrial fibrillation - Troponin x 3 sets; negative - s/p metoprolol 5mg IV - c/w Metoprolol succinate 50 BID - Will hold on anticoagulation given recent surgical procedure; will discuss with Dr. Acosta Hx of recent pneumonia - s/p antibiotics (s/p total of 7 days) Normocytnic anemia - Hg stable - Will monitor s/p Leukocytosis - likely 2/2 reactive process - no fevers noted - will monitor for now Thrombocytosis - likely 2/2 reactive process - no fevers noted - will monitor for now Chronic constipation - c/w bowel regimen Prostate CA (Stage IV) - Dx 2008 - s/p Chemotherapy and Radiation - Follows with Dr. Prakash and Dr. Alatorre Hx of R ureteral stricture 2/2 mass - s/p stent NIDDM2 - Not on any medications as an outpatient HTN - Not on any medications as an outpatient DLP - c/w Simvastatin Vitamin D deficiency - c/w Calcium / Vitamin D supplements DVT prophylaxis - c/w SCDs VS,Fishbone, I+O VS, Fishbone, I+O Laboratory Tests 04/10/17 05:06 Red Blood Count 3.12 L, Mean Corpuscular Volume 91.3, Mean Corpuscular Hemoglobin 29.9, Mean Corpuscular Hemoglobin Concent 32.7, Red Cell Distribution Width 14.0, Calcium Level 7.7 L Vital Signs Date Time Temp Pulse Resp B/P (MAP) Pulse Ox O2 Delivery O2 Flow Rate FiO2 04/10/17 11:34 97.3 66 18 124/61 (82) 97 Room Air 04/10/17 09:41 2.0 I&O- Last 24 Hours up to 6 AM 04/10/17 06:00 Intake Total 1080 ml Output Total 920 ml Balance 160 ml JUANPABLO SAENZ MD Apr 10, 2017 14:13
[2017-04-10 15:58] VITALS: BP 116/56
[2017-04-10 20:00] VITALS: PULSE 67
[2017-04-10 20:56] VITALS: BP 122/60
[2017-04-10] MEDS: SIMVASTATIN 20 MG TAB PO SCH (22:56)
[2017-04-11] VITALS: PULSE 65
[2017-04-11 00:37] VITALS: BP 117/56
[2017-04-11 03:45] VITALS: BP 121/60
[2017-04-11 04:00] VITALS: PULSE 60
[2017-04-11] MEDS: SLF 3 ML SYR IV SCH (04:34)
[2017-04-11 05:34] LABS: MEAN CORPUSCULAR HEMOGLOBIN 29.7 pg (27.0-33.0); MEAN CORPUSCULAR HGB CONC 32.3 g/dl (32.0-36.5); RED CELL DISTRIBUTION WIDTH 13.9 % (11.5-14.5); WHITE BLOOD COUNT 10.7 K/mm3 (4.0-10.0)
[2017-04-11 05:54] LABS: ANION GAP 6 MEQ/L (8-16); BLOOD UREA NITROGEN 12 MG/DL (7-18); CALCIUM LEVEL 8.1 MG/DL (8.8-10.2); CARBON DIOXIDE LEVEL 29 MEQ/L (21-32); CHLORIDE LEVEL 104 MEQ/L (98-107); CREATININE FOR GFR 0.62 MG/DL (0.70-1.30); GLOMERULAR FILTRATION RATE > 60.0 (>42); GLUCOSE, FASTING 91 MG/DL (83-110); MAGNESIUM LEVEL 1.8 MG/DL (1.8-2.4); POTASSIUM SERUM 3.9 MEQ/L (3.5-5.1); SODIUM LEVEL 139 MEQ/L (136-145)
[2017-04-11 08:00] VITALS: BP 117/58
[2017-04-11] MEDS: traMADol 50 MG TAB PO SCH (08:17)
[2017-04-11] MEDS: CALCIUM/VITAMIN D 500 MG TAB PO SCH (08:18)
[2017-04-11] MEDS: OCUVITE 1 TAB PO SCH (08:18)
[2017-04-11] MEDS: predniSONE 10 MG TAB PO SCH (08:18)
[2017-04-11] MEDS: VITAMIN B COMPLEX/VIT C CAP PO SCH (08:19)
[2017-04-11] MEDS: MORPHINE 15 MG SA TAB PO SCH (08:19)
[2017-04-11] MEDS: SENOKOT S TAB PO SCH (08:19)
[2017-04-11 08:20] VITALS: BP 117/58
[2017-04-11] MEDS: METOPROLOL SUCC (TopROL XL) 50MG **XL** TAB PO SCH (08:20)
[2017-04-11] MEDS: VITAMIN D 1,000 INTERNATIONAL UNITS TABLET PO SCH (08:20)
--- NOTE | 2017-04-11 08:23 | REP ---
Chest x-ray: Two views. History: Effusion. Comparison chest x-ray April 10, 2017. Findings: Right chest tube has been removed. There is some fissural thickening in the minor fissure region and an elliptical shaped soft tissue density seen in the perihilar region which may be fissural fluid as well. Some pleural thickening persists on the right unchanged. There is slight blunting of the left lateral pleural angle and posterior pleural angle unchanged. No new infiltrate is seen. Signed by Napoleon Garrett MD 04/11/2017 08:38 A
[2017-04-11] MEDS ORDERED: METO1TAB7 PO (10:15)
[2017-04-11] MEDS ORDERED: ELIQ5TAB PO (10:15)
--- NOTE | 2017-04-11 16:03 | REP ---
Chest x-ray: Two views: History: Effusion. Comparison study: 04/09/2017. Findings: Right lateral chest tube remains in place unchanged. The lungs are somewhat hyperinflated overall. Mild pleural thickening is seen on the right unchanged. No new infiltrate is seen. Impression: Stable radiographic findings. Signed by Napoleon Garrett MD 04/11/2017 05:12 P
--- NOTE | 2017-04-11 21:52 | DSES ---
DATE OF ADMISSION: 04/06/2017 DATE OF DISCHARGE: 04/11/2017 ATTENDING PHYSICIAN: Dr. Breana Elliott DICTATED BY: Dr. Breana Elliott PRIMARY CARE PHYSICIAN: Unknown. REFERRING PHYSICIAN: [facility]. CONSULTING PHYSICIANS: Dr. Levy Acosta CONDITION ON DISCHARGE: Stable. FINAL DIAGNOSES: 1. Dyspnea, likely secondary to right pleural effusion that is recurrent, possibly secondary to malignancy. Presented as a transfer from [facility]. 2. History of pleural effusion that was removed 1.5 weeks prior to arrival. Physical initially revealed decreased breath sounds on the right side; however, status post chest tube placement, there has been better aeration of that right side. Chest x-ray on 04/07/2017 pre-chest tube revealed a large right pleural effusion; post-chest tube a right chest tube was present, resolved effusion, tiny pneumothorax at the right costophrenic angle was noted. Chest x-ray on 04/09/2017 revealed a right portable drainage catheter which remained in place. Patient was put on telemetry monitoring and chest tube deception. Fluid analysis was consistent with exudative etiology. Cytology was negative for malignancy. Patient was put on pain control and cardiothoracic surgeon, Dr. Acosta, was on consult and chest tube was removed on 04/10/2017. Subsequent chest x-ray revealed resolution of pneumothorax and effusions. Patient was advised to follow up with his oncologist for the next seven days and follow up with cardiothoracic surgery, Dr. Acosta, within the next ten days. Patient has been given a script for a chest x-ray, PA and lateral views for evaluation of recurrence of effusions. 3. Possible mass in right lung field with nodules likely secondary to metastatic disease. CT chest on 04/08/2017 revealed multiple focal areas of pleural thickening in the right hemothorax. This could represent loculated fluid collection, neoplasm, multiple lung nodules, mediastinal adenopathy. Cardiothoracic surgeon, Dr. Acosta, on consult. Appreciate his input. 4. Tachycardia secondary to fibrillation with rapid ventricular response. Clinically, he had no symptoms of palpitations, chest pain, shortness of breath, nausea or diaphoresis. Physical revealed irregular heart rate after procedure and had returned to normal sinus rhythm after that point. EKG revealed atrial fibrillation. Troponin, three sets, have been negative. Patient was given a dose of metoprolol 5 mg intravenous (IV) and put on metoprolol succinate 50 mg twice a day. Patient was held off anticoagulation given that he had a chest tube present; however, upon discharge, patient was given Eliquis 5 mg twice a day and was cleared by cardiothoracic surgery to receive anticoagulation. 5. History of recent pneumonia. Status post antibiotics, status post a total of seven days. 6. Anemia. Hemoglobin has been stable. Will continue to monitor. 7. Status post leukocytosis, likely secondary to reactive process. No fevers were noted. 8. Thrombocytosis. Secondary to reactive process. No fevers were noted. 9. Chronic constipation. Continue bowel regimen. 10. Prostate cancer, stage IV. Diagnosed in 2008. Status post chemotherapy and radiation. Follows with Dr. Prakash and Dr. Goirdano as an outpatient. 11. History of right ureteral restriction secondary to mass. Status post stent. 12. Non-insulin dependent diabetes mellitus type 2. Not on any medication as an outpatient. 13. Hypertension. Not on any medications as an outpatient. 14. Dyslipidemia. Continue with Simvastatin. 15. Vitamin D deficiency. Continue with calcium and vitamin D supplementation. 16. Deep venous thrombosis (DVT) prophylaxis. Continue with sequential compression devices. Patient is on medication. PATIENT DISCHARGED HOME ON THE FOLLOWING MEDICATION LIST: - Eliquis 5 mg by mouth twice a day - metoprolol 50 mg by mouth twice a day - aspirin 162 mg by mouth daily - vitamin B complex one tablet by mouth daily - calcium and vitamin D one tablet by mouth daily - vitamin D 2000 units by mouth daily - Coenzyme Q10 200 mg by mouth daily - denosumab 120 mg subcutaneous monthly - docusate sodium 100 mg by mouth twice a day - Xtandi 120 mg by mouth daily - leuprolide 45 mg intramuscularly as directed - magnesium citrate 300 mL by mouth daily as needed for constipation - morphine sulfate 50 mg by mouth twice a day - multivitamins one tablet by mouth daily - Zofran 8 mg by mouth three times a day as needed for nausea - oxycodone/acetaminophen 5/325 one tablet by mouth three times a day as needed for pain - polyethylene glycol 17 grams by mouth daily as needed for constipation - prednisone 10 mg by mouth daily - simvastatin 20 mg by mouth at bedtime - tramadol 50 mg by mouth twice a day DISCHARGE INSTRUCTIONS: Patient has been advised to follow up with his primary care provider, cardiology, cardiothoracic surgery, within the next 7-10 days. He has been advised to remain compliant with treatment and medications and advised to get a chest x-ray this Tuesday prior to following up with cardiothoracic surgery. He is advised to remain compliant with treatment plan and medications and go straight to the emergency room if he experiences any problems. TOTAL TIME SPENT ON DISCHARGE: Greater than 35 minutes.
== END 2017-04-11 14:23 | disposition home or self-care (01) | DRG 181 ==
LOC: M PCU 20:04
PROVIDERS: ADMIT Internal Medicine; ATTEND Internal Medicine
PROC: 0W9930Z Drainage of Right Pleural Cavity with Drainage Device, Percutaneous Approach (ICD-10-PCS; principal; 2017-04-07)
PROC: 0W993ZX Drainage of Right Pleural Cavity, Percutaneous Approach, Diagnostic (ICD-10-PCS; 2017-04-07)
DX: C78.01 Secondary malignant neoplasm of right lung (principal); C79.51 Secondary malignant neoplasm of bone; C79.89 Secondary malignant neoplasm of other specified sites; J91.0 Malignant pleural effusion; E88.09 Other disorders of plasma-protein metabolism, not elsewhere classified; E11.65 Type 2 diabetes mellitus with hyperglycemia; I10 Essential (primary) hypertension; E78.5 Hyperlipidemia, unspecified; D63.0 Anemia in neoplastic disease; E55.9 Vitamin D deficiency, unspecified; K59.00 Constipation, unspecified; Z85.46 Personal history of malignant neoplasm of prostate; Z79.82 Long term (current) use of aspirin; Z79.891 Long term (current) use of opiate analgesic; Z79.899 Other long term (current) drug therapy; Z92.21 Personal history of antineoplastic chemotherapy; Z92.3 Personal history of irradiation; Z87.891 Personal history of nicotine dependence

== ENCOUNTER → 2017-04-14 | Outpatient (REF) | payer MEDICARE, OTHER ==
[~2017-04-14] MED LIST changes: +ASPI81TAEC PO; +CITR1SOL PO; +DIGO0.12 PO; +ELIQ5TAB PO; +METO1TAB7 PO; +MORP15TASA PO; +PRED10TA2 PO; +PROL60SO SC; +TOPR50TA PO; +VITA-122 PO; +XGEVINJ SC
[2017-04-14 19:13] LABS: MICROSCOPIC INDICATED? MAN YES (NO)
[2017-04-14 19:17] LABS: BACTERIA, URINE NONE SEEN; HYALINE CAST, URINE NONE SEEN /lpf (0-1); RBC, URINE TNTC /hpf (0-3); SQUAMOUS EPITHELIAL CELL URINE NONE SEEN /hpf (SMALL AMT)
[2017-04-14 19:18] LABS: MICROSCOPIC EXAM UNSPUN; WBC, URINE 0-1 /hpf (0-3)
== END ==
LOC: M LAB REF 14:32
PROVIDERS: ATTEND Internal Medicine Medical Oncology
DX: C61 Malignant neoplasm of prostate (principal)

== ENCOUNTER 2017-04-21 09:52 | Inpatient (IN) | payer MEDICARE, OTHER ==
[~2017-04-21] VITALS: Ht 185.4 cm; Wt 72.0 kg
[~2017-04-21 09:52] MED LIST changes: -DIGO0.12 PO; -TOPR50TA PO; -VITA-122 PO
[2017-04-21 11:17] LABS: BASO % 0.2 % (0.0-1.0); EOS # 0.1 K/mm3 (0.0-0.50); EOS % 0.9 % (0.0-3.0); LARGE UNSTAINED CELL # 0.1 K/mm3 (0.0-0.4); LYMPH % 10.2 % (24.0-44.0); MEAN CORPUSCULAR HEMOGLOBIN 29.6 pg (27.0-33.0); MEAN CORPUSCULAR VOLUME 89.8 fl (80.0-96.0); MONO # 0.5 K/mm3 (0.0-0.8); MONO % 5.1 % (0.0-5.0); NEUTROPHILS # 7.7 K/mm3 (1.8-7.7); NEUTROPHILS % 82.5 % (36.0-66.0); PLATELET COUNT, AUTOMATED 537 k/mm3 (150-450); WHITE BLOOD COUNT 9.3 K/mm3 (4.0-10.0)
[2017-04-21 11:22] LABS: INR 2.12
[2017-04-21 11:35] LABS: ANION GAP 11 MEQ/L (8-16); BLOOD UREA NITROGEN 11 MG/DL (7-18); CALCIUM LEVEL 8.1 MG/DL (8.8-10.2); CARBON DIOXIDE LEVEL 24 MEQ/L (21-32); CHLORIDE LEVEL 98 MEQ/L (98-107); CREATININE FOR GFR 0.69 MG/DL (0.70-1.30); GLOMERULAR FILTRATION RATE > 60.0 (>42); GLUCOSE, FASTING 144 MG/DL (83-110); POTASSIUM SERUM 4.1 MEQ/L (3.5-5.1); SODIUM LEVEL 133 MEQ/L (136-145)
[2017-04-21] MEDS: METOPROLOL 5 MG/5 ML VIAL IV SCH ×2 (12:15→12:25)
[2017-04-21] MEDS ORDERED: METOPROLOL TART 25 MG TABLET PO ONE (12:15)
[2017-04-21] MEDS ORDERED: NS 500 ML IV ONE (12:45)
[2017-04-21] MEDS ORDERED: DIGOXIN INJ 0.5 MG/2 ML AMP (J1160) IV ONE (12:45)
[2017-04-21] MEDS ORDERED: ISOVUE-370 76% 100ML VIAL (Q9967) As Ordered ONE (13:03)
--- NOTE | 2017-04-21 15:05 | REP ---
CT pulmonary angiogram: With IV contrast. History: Pulmonary embolus. Comparison studies: Comparison exam is from April 08, 2017, April 06, [address] pulmonary angiogram is also reviewed from [facility]. Contrast dose: 75 cc's of Isovue [address] technique: Helical scanning is acquired and overlapping 1.5 mm and contiguous 3 mm axial images are reformatted. In addition, a 3-D work station is deployed to generate thick slab maximum intensity projection images in sagittal and coronal imaging projections. CT pulmonary angiographic findings: There is good opacification of the pulmonary arterial tree and there is no CT evidence of pulmonary embolism. The thoracic aorta enhances homogeneously and is normal in caliber. No evidence of aneurysm or dissection. A small right pleural effusion is noted with multiple pleural based nodules similar to those seen on April 08, 2017. There is subcarinal adenopathy in the mediastinum again noted, unchanged with a 3.4 cm subcarinal node. Calcific pleural plaquing is visible on the left and a small sliver of left pleural effusion is seen. No pericardial effusion is seen. No adrenal lesion is observed. There is a stent visible in place in the right renal pelvis. Despite this there appears to be right-sided hydronephrosis. This is only partially seen at the bottom of the imaging field of view. No bony destructive lesion is appreciated. Impression: 1. No CT evidence of pulmonary embolism. 2. Multiple pleural based nodules right chest consistent with metastases. Small right and left pleural effusion. Subcarinal adenopathy again seen. 3. Moderate right-sided hydronephrosis despite the presence of a right renal pelvic stent tube in place. This is only partially seen at the bottom of the imaging field of view. Signed by Napoleon Garrett MD 04/22/2017 10:03 A
[2017-04-21] MEDS ORDERED: TOPR50TA PO (15:27)
[2017-04-21] MEDS ORDERED: VITA-122 PO (15:27)
[2017-04-21] MEDS ORDERED: ELIQ5TAB PO (15:27)
[2017-04-21] MEDS ORDERED: MIRALAX *UNIT DOSE* 17GM PACKET PO PRN (16:15)
[2017-04-21] MEDS ORDERED: MAGNESIUM CITRATE 300 ML BTL PO PRN (16:15)
--- NOTE | 2017-04-21 21:08 | HPEPDOC ---
General Date of Admission Primary Care Physician: Darrell Domingeuz MD Other Providers Cardiology Dr Rosas, Called Dr Power, Oncologist Dr Prakash Radiation Oncology Dr Lee Urology Dr Billings Attending Physician: JASMEET SMITH MD Chief Complaint The patient is a 77-year-old male admitted with a reason for visit of Chest Discom.. Source: Patient, Family History of Present Illness 77-year-old male with past medical history of prostate cancer Stage IV with metastasis to femur, knee, back and lung with malignant pleural effusion that was drained by Dr Acosta recently, type 2 diabetes not on insulin, hypertension , hyperlipidemia, vitamin D deficiency, chronic pain, macular degeneration, hypotension, and renal stone sent in by Dr Acosta for Afib with RVR in 130, Denied sob, reported generalized weakness, and yesterday, visiting nurse found patient had an episode of low bp 68/36 at home, patient's beta robe was reduced. given Lopressor and digoxin in Er patient converted to sinus . hospitalist called to admission for borderline BP. Denied CP, SOB, palpitation, n/c abd pain. reported dark urine Home Medications Scheduled (Co Q-10) 200 Mg Cap, 400 MG PO DAILY, (Reported) Apixaban Base (Eliquis) 5 Mg Tab, 5 MG PO BID, (Reported) Aspirin (Aspirin EC) 81 Mg Tabec, 162 MG PO DAILY, (Reported) B1/B2/B3/B5/B6 (Vitamin B Complex) 1 Tab Tab, 1 TAB PO DAILY, (Reported) Calcium/Vitamin D (Oyster Shell Calcium + 500-200 mg-Unit) 1 Tab Tab, 1 TAB PO DAILY, (Reported) Cholecalciferol (Vitamin D3) 1,000 Unit Tab, 2,000 UNIT PO DAILY, (Reported) Denosumab Injection (Xgeva) 120 Mg/1.7 Ml Inj, 120 MG SC MTHLY, (Reported) Docusate Sodium (Colace) 100 Mg Cap, 100 MG PO BID, (Reported) Enzalutamide Base (Xtandi) 40 Mg Cap, 120 MG PO DAILY, (Reported) Leuprolide Acetate (Lupron Depot) 45 Mg Inj, 45 MG IM ASDIRECTED, (Reported) EVERY 6 MONTHS: DUE AT END OF YEAR OF 2016 Metoprolol Succinate (Toprol Xl) 50 Mg Tab, 25 MG PO BID, (Reported) Morphine Sulfate (Morphine Sulfate ER) 15 Mg Tabcr, 15 MG PO BID, (Reported) Multivitamins (Ocuvite) 1 Tab Tab, 1 TAB PO DAILY, (Reported) Prednisone (Prednisone) 10 Mg Tab, 10 MG PO DAILY, (Reported) Simvastatin (Simvastatin) 20 Mg Tab, 20 MG PO QHS, (Reported) Tramadol HCl (Tramadol HCl) 50 Mg Tab, 50 MG PO BID, (Reported) Scheduled PRN Magnesium Citrate (Citrate of Magnesia) 300 Ml Soln, 300 ML PO DAILY PRN for CONSTIPATION, (Reported) LAST RESORT Ondansetron HCl (Zofran) 8 Mg Tab, 8 MG PO TID PRN for NAUSEA OR VOMITING, ( Reported) Oxycodone/Acetaminophen (Oxycodone/Acetaminophen 5-325 mg) 1 Tab Tab, 1 TAB PO TID PRN for PAIN, (Reported) Polyethylene Glycol (Miralax) 1 Pow Pow, 17 GM PO DAILY PRN for CONSTIPATION, ( Reported) Allergies Coded Allergies: No Known Drug Allergy (Verified Allergy, Unknown, 11/27/12) Past Medical History Medical History prostate cancer mets to knee, femur, back and lung with malignant pleural effusion, DMII, HTN, HLD, vit D def, Surgical History left rotator cuff repair, left carotid endarterectomy, b/l cataract, JJ stent Family History Significant Family History: No pertinent family hx Social History * Smoker: Denies Alcohol: Denies Drugs: denies Recent Travel/Sick Contacts: Denies: Recent travel, Recent sick contacts retired Review of Symptoms Constitutional: Reports: Weakness, Weight Loss, Denies: Chills, Fever Eyes: Denies: Pain, Vision change ENT: Denies: Head Aches, Ear Pain Skin: Denies: Rash, Lesions Pulmonary: Denies: Dyspnea, Cough Cardiovascular: Reports: Palpitations, Denies: Chest Pain, Orthopnea Gastrointestinal: Denies: Nausea, Vomiting, Abdominal Pain Genitourinary: Reports: Other Symptoms (dark urine ), Denies: Dysuria, Frequency Hematologic: Denies: Bruising, Bleeding Excessively Musculoskeletal: Denies: Neck Pain, Back Pain Neurological: Denies: Weakness, Numbness Physical Examination General Exam: Positive: Alert, No Acute Distress Eye Exam: Positive: PERRLA ENT Exam: Positive: Atraumatic, Mucous membr. moist/pink Neck Exam: Positive: Supple, JVD Chest Exam: Positive: Clear to auscultation, Normal air movement Heart Exam: Positive: Rate Normal, Normal S1, Normal S2 Abdomen Exam: Positive: Normal bowel sounds, Soft Extremity Exam: Negative: Clubbing, Cyanosis, Edema Vital Signs Vital Signs Date Time Temp Pulse Resp B/P (MAP) Pulse Ox O2 Delivery O2 Flow Rate FiO2 04/21/17 15:19 68 18 121/60 (80) 04/21/17 13:37 99 04/21/17 12:37 Room Air 04/21/17 09:53 97.6 Laboratory Data Labs 24H Laboratory Tests 2 04/21/17 10:47: White Blood Count 9.3, Red Blood Count 3.13L, Hemoglobin 9.3L, Hematocrit 28.1L , Mean Corpuscular Volume 89.8, Mean Corpuscular Hemoglobin 29.6, Mean Corpuscular Hemoglobin Concent 33.0, Red Cell Distribution Width 14.0, Platelet Count 537H, Neutrophils (%) (Auto) 82.5H, Lymphocytes (%) (Auto) 10.2L, Monocytes (%) (Auto) 5.1H, Eosinophils (%) (Auto) 0.9, Basophils (%) (Auto) 0.2 , Neutrophils # (Auto) 7.7, Lymphocytes # (Auto) 1.0L, Monocytes # (Auto) 0.5, Eosinophils # (Auto) 0.1, Basophils # (Auto) 0.0, Large Unclassified Cells % 1.0 , Large Unclassified Cells # 0.1, Prothrombin Time 24.5H, Prothromb Time International Ratio 2.12, Activated Partial Thromboplast Time 38.3H, Anion Gap 11, Glomerular Filtration Rate > 60.0, Blood Urea Nitrogen 11, Creatinine 0.69L , Sodium Level 133L, Potassium Level 4.1, Chloride Level 98, Carbon Dioxide Level 24, Calcium Level 8.1L, Total Creatine Kinase 141, Creatine Kinase MB 1.0 , Creatine Kinase MB Relative Index 0.70, Troponin I 0.02, Thyroid Stimulating Hormone (TSH) 0.953 04/21/17 19:23: Total Creatine Kinase 123, Creatine Kinase MB 1.0, Creatine Kinase MB Relative Index 0.81, Troponin I 0.03# CBC/BMP Laboratory Tests 04/21/17 10:47 Red Blood Count 3.13 L, Mean Corpuscular Volume 89.8, Mean Corpuscular Hemoglobin 29.6, Mean Corpuscular Hemoglobin Concent 33.0, Red Cell Distribution Width 14.0, Neutrophils (%) (Auto) 82.5 H, Lymphocytes (%) (Auto) 10.2 L, Monocytes (%) (Auto) 5.1 H, Eosinophils (%) (Auto) 0.9, Basophils (%) ( Auto) 0.2, Neutrophils # (Auto) 7.7, Lymphocytes # (Auto) 1.0 L, Monocytes # ( Auto) 0.5, Eosinophils # (Auto) 0.1, Basophils # (Auto) 0.0, Calcium Level 8.1 L , Total Creatine Kinase 141 Assessment/Plan 77-year-old male with past medical history of prostate cancer Stage IV with metastasis to femur, knee, back and lung with malignant pleural effusion that was drained by Dr Acosta recently, type 2 diabetes not on insulin, hypertension , hyperlipidemia, vitamin D deficiency, chronic pain, macular degeneration, hypotension, and renal stone sent in by Dr Acosta for Afib with RVR in 130 Problems (1) Atrial fibrillation with rapid ventricular response Status: Acute Problem Text: on eliquis, tsh, lopressor, tele, digoxin monitor BP consult Cardio Dr Power, CE x2 neg (2) Anemia in chronic illness Status: Chronic Problem Text: stable (3) Metastatic malignant neoplasm to prostate Status: Acute Problem Text: c/w medication d/w Dr Billings cystoscopy 05/10 out patient 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 likely Dc in 24 hr, if BP stable PHILOMENA BYRD MD Apr 21, 2017 21:08
[2017-04-21] MEDS: DOCUSATE SODIUM 100 MG CAP PO SCH (21:53)
[2017-04-21] MEDS: APIXABAN 5 MG TAB (ELIQUIS) PO SCH (21:54)
[2017-04-21] MEDS: SIMVASTATIN 20 MG TAB PO SCH (21:54)
[2017-04-21] MEDS: PERCOCET 5MG/325MG TAB PO PRN (21:55)
[2017-04-21] MEDS: MORPHINE 15 MG SA TAB PO SCH (21:57)
[2017-04-21] MEDS: METOPROLOL TART 25 MG TABLET PO SCH (21:58)
[2017-04-21] MEDS: traMADol 50 MG TAB PO SCH (21:58)
[2017-04-21 23:35] VITALS: BP 132/62
[2017-04-22] MEDS: ACETAMINOPHEN TAB 650MG DOSE (2X325MG) PO PRN ×2 (00:01→20:20)
[2017-04-22 04:00] VITALS: BP 99/50
[2017-04-22] MEDS: PERCOCET 5MG/325MG TAB PO PRN ×2 (06:06→06:35)
[2017-04-22] MEDS: ONDANSETRON 4MG/2ML VIAL (J2405) IV PRN (06:07)
--- NOTE | 2017-04-22 06:07 | ECGEPIP ---
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
[2017-04-22 07:03] LABS: MEAN CORPUSCULAR HEMOGLOBIN 29.7 pg (27.0-33.0); MEAN CORPUSCULAR HGB CONC 32.9 g/dl (32.0-36.5); MEAN CORPUSCULAR VOLUME 90.4 fl (80.0-96.0); WHITE BLOOD COUNT 9.3 K/mm3 (4.0-10.0)
[2017-04-22 07:20] LABS: ALBUMIN 1.7 GM/DL (3.2-5.2); ALBUMIN/GLOBULIN RATIO 0.49 (1.00-1.93); ALKALINE PHOSPHATASE 152 U/L (45-117); ALT/SGPT 22 U/L (12-78); ANION GAP 8 MEQ/L (8-16); AST/SGOT 87 U/L (15-37); BILIRUBIN,TOTAL 0.3 MG/DL (0.2-1.0); BLOOD UREA NITROGEN 12 MG/DL (7-18); CALCIUM LEVEL 7.1 MG/DL (8.8-10.2); CARBON DIOXIDE LEVEL 26 MEQ/L (21-32); CHLORIDE LEVEL 102 MEQ/L (98-107); CREATININE FOR GFR 0.78 MG/DL (0.70-1.30); GLOMERULAR FILTRATION RATE > 60.0 (>42); GLUCOSE, FASTING 92 MG/DL (83-110); MAGNESIUM LEVEL 2.5 MG/DL (1.8-2.4); SODIUM LEVEL 136 MEQ/L (136-145); TOTAL PROTEIN 5.2 GM/DL (6.4-8.2)
[2017-04-22 08:00] VITALS: BP 109/56
[2017-04-22] MEDS: DIGOXIN 0.125 MG TAB PO SCH (09:26)
[2017-04-22] MEDS: METOPROLOL TART 25 MG TABLET PO SCH ×2 (09:26→20:20)
[2017-04-22] MEDS: ASPIRIN 81 MG ENTERIC TAB PO SCH (09:34)
[2017-04-22] MEDS: predniSONE 10 MG TAB PO SCH (09:34)
[2017-04-22] MEDS: APIXABAN 5 MG TAB (ELIQUIS) PO SCH ×2 (09:34→20:20)
[2017-04-22] MEDS: VITAMIN D 1,000 INTERNATIONAL UNITS TABLET PO SCH (09:34)
[2017-04-22] MEDS: PANTOPRAZOLE 40MG TAB (PROTONIX) PO SCH (09:34)
[2017-04-22] MEDS: SENOKOT S TAB PO SCH ×3 (09:34→20:21)
[2017-04-22] MEDS: DOCUSATE SODIUM 100 MG CAP PO SCH ×2 (09:34→20:21)
[2017-04-22] MEDS: OCUVITE 1 TAB PO SCH (09:34)
[2017-04-22] MEDS: VITAMIN B COMPLEX/VIT C CAP PO SCH (09:34)
[2017-04-22] MEDS: traMADol 50 MG TAB PO SCH ×2 (09:35→20:21)
[2017-04-22] MEDS: MORPHINE 15 MG SA TAB PO SCH ×2 (09:35→20:21)
[2017-04-22 12:00] VITALS: BP 128/58
[2017-04-22 16:00] VITALS: BP 136/69
[2017-04-22] MEDS: XTANDI 40 MG PO SCH (17:56)
[2017-04-22] MEDS ORDERED: IBUPROFEN 400 MG TAB PO PRN (18:30)
[2017-04-22 20:00] VITALS: BP 124/65
[2017-04-22] MEDS: SIMVASTATIN 20 MG TAB PO SCH (20:21)
[2017-04-22 23:59] VITALS: BP 125/64
[2017-04-23 04:45] VITALS: BP 119/55
[2017-04-23 05:28] LABS: MEAN CORPUSCULAR HEMOGLOBIN 29.2 pg (27.0-33.0); MEAN CORPUSCULAR HGB CONC 32.8 g/dl (32.0-36.5); MEAN CORPUSCULAR VOLUME 89.1 fl (80.0-96.0); RED CELL DISTRIBUTION WIDTH 14.1 % (11.5-14.5); WHITE BLOOD COUNT 11.3 K/mm3 (4.0-10.0)
[2017-04-23 06:01] LABS: ALBUMIN 1.7 GM/DL (3.2-5.2); ALKALINE PHOSPHATASE 147 U/L (45-117); ALT/SGPT 20 U/L (12-78); ANION GAP 9 MEQ/L (8-16); AST/SGOT 48 U/L (15-37); BILIRUBIN,TOTAL 0.3 MG/DL (0.2-1.0); BLOOD UREA NITROGEN 12 MG/DL (7-18); CALCIUM LEVEL 7.6 MG/DL (8.8-10.2); CARBON DIOXIDE LEVEL 25 MEQ/L (21-32); CHLORIDE LEVEL 104 MEQ/L (98-107); CREATININE FOR GFR 0.82 MG/DL (0.70-1.30); GLOMERULAR FILTRATION RATE > 60.0 (>42); GLUCOSE, FASTING 96 MG/DL (83-110); MAGNESIUM LEVEL 2.5 MG/DL (1.8-2.4); POTASSIUM SERUM 4.2 MEQ/L (3.5-5.1); SODIUM LEVEL 138 MEQ/L (136-145); TOTAL PROTEIN 5.1 GM/DL (6.4-8.2)
[2017-04-23 07:54] VITALS: BP 119/58
[2017-04-23] MEDS: OCUVITE 1 TAB PO SCH (08:48)
[2017-04-23] MEDS: XTANDI 40 MG PO SCH (08:48)
[2017-04-23] MEDS: VITAMIN B COMPLEX/VIT C CAP PO SCH (08:48)
[2017-04-23] MEDS: MORPHINE 15 MG SA TAB PO SCH ×2 (08:49→20:36)
[2017-04-23] MEDS: SENOKOT S TAB PO SCH ×2 (08:49→20:36)
[2017-04-23] MEDS: METOPROLOL TART 25 MG TABLET PO SCH ×2 (08:49→20:35)
[2017-04-23] MEDS: APIXABAN 5 MG TAB (ELIQUIS) PO SCH ×2 (08:50→20:36)
[2017-04-23] MEDS: ASPIRIN 81 MG ENTERIC TAB PO SCH (08:50)
[2017-04-23] MEDS: PANTOPRAZOLE 40MG TAB (PROTONIX) PO SCH (08:50)
[2017-04-23] MEDS: traMADol 50 MG TAB PO SCH ×2 (08:50→20:36)
[2017-04-23] MEDS: VITAMIN D 1,000 INTERNATIONAL UNITS TABLET PO SCH (08:50)
[2017-04-23] MEDS: DIGOXIN 0.125 MG TAB PO SCH (08:50)
[2017-04-23] MEDS: predniSONE 10 MG TAB PO SCH (08:50)
[2017-04-23] MEDS: DOCUSATE SODIUM 100 MG CAP PO SCH ×2 (08:50→20:36)
[2017-04-23] MEDS: PIPERACILLIN/TAZOBACTAM SOD 3.375 GM in D5W MINI-BAG PLUS 50 ML IV SCH ×3 (08:51→20:35)
--- NOTE | 2017-04-23 09:34 | ECGEPIP ---
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 Right bundle branch block. Primary lateral ST/T-wave abnormalities. Rhythm converted from atrial fibrillation earlier this same day Electronically Signed On 04-23-2017 9:33:58 EDT by Michele Rodriguez
[2017-04-23] MEDS: VANCOMYCIN HCL 1,000 MG, VIAL MATE ADAPTER 1 EACH in D5W 250 ML IV SCH ×2 (10:18→22:09)
[2017-04-23] MEDS ORDERED: VANCOMYCIN HCL 500 MG in D5W MINI-BAG PLUS 100 ML IV ONE (11:00)
[2017-04-23 11:51] VITALS: BP 99/51
--- NOTE | 2017-04-23 14:06 | PHACANCOPD ---
PHARMACY VANCOMYCIN DOSING Pt Demographics Demographics Patient Age:77 , Weight:73.200 , Gender: male Adjusted Body Weight Date: 04/23/17, Adjusted Body Weight: Kg Events Past 24 Hours Events Past 24 Hours: YES: Elevation in WBC, NO: Dialysis, Diuretic Therapy, Change in CrCl, Fever, Pending Diagnostics, Pending Procedures, Other Vancomycin Vancomycin indication: UTI Vancomycin Target Ranges: 10-20 mcg/ml Vancomycin Load Y/N: Yes Load Dose Date Time Vancomycin Load Dose: 1500 Date: 04/23/17 Time: 1000 Vancomycin Dose Date: 04/23/17. Current Vancomycin Dose: [1GM IV Q12H] Intermittent Dosing?: No Labs Labs Item Value Date Time White Blood Count 11.3 K/mm3 H 04/23/17 0456 White Blood Count 9.3 K/mm3 04/22/17 0640 Creatinine 0.82 MG/DL 04/23/17 0455 Creatinine 0.78 MG/DL 04/22/17 0640 Vital Signs Label Value Date Time Patient Temperature 97.4 degrees F 04/23/17 1151 Temperature Source Temporal 04/23/17 1151 Micro Microbiology 04/23/17 Blood Culture, Received Pending 04/23/17 Blood Culture, Received Pending 04/23/17 Urine Culture, Received Pending Creatinine Clearance Date:04/23/17. Creatinine Clearance: . Assessment and Plan Maintaining Current Dose?: Yes Reason for dose change: No Dose Change Pharmacist Note Pharmacist Note Date: 04/23/17. Pharmacist note: Patient was started on Vancomycin and Zosyn for possible UTI. He has a slight elevation in his WBC but remains afebrile at this time. He has blood and urine cultures pending. He has no history of MRSA at our facility or Vancomycin use. He was loaded with 1500mg of Vancomycin and continued with 1gram every 12 hours of Vancomycin. We will continue to monitor and make adjustments as necessary. BARBARA MOSS PHARMACY Apr 23, 2017 14:06
--- NOTE | 2017-04-23 14:25 | IPN ---
DATE: 04/23/2017 Mr. Ashley was apparently confused yesterday. Perhaps is somewhat better today. He is able to tell me that he did have a fever last night. Currently no complaints of pain, chest pain, no shortness of breath, no cough. Is not describing dysuria. T-max last night was 101.2, T-current 97.7, pulse 69, respiratory rate 18, blood pressure 119/58, 97% on room air. Intake and output notable for a negative fluid balance of -35. Body mass index (BMI) 21.3. He is awake, appropriately interactive, pleasantly conversant, answering questions. Mucous membranes are moist. Neck is supple. Breathing is symmetrical. I-to-E ratio is 1:3. He is speaking in complete sentences. No accessory muscle use. Heart is distant sounding. Normal S1 and S2. Abdomen is soft. There is no CVA tenderness. There are active bowel sounds. White cell count is 11.3, hemoglobin 8.3, platelets of 455, albumin 12, creatinine 0.82, magnesium 2.5, micro blood and urine cultures are pending. In fact, urine has not yet been since. Urinalysis has not yet been sent, although has been ordered. This is a 77-year-old with atrial fibrillation and RVR now with febrile episode. Plan will be as follows: 1. Atrial fibrillation with RVR. Blood pressure within a reasonable range. Continue metoprolol twice daily and digoxin. 2. Patient has febrile illness. Will check urine and blood. There is no evidence of pneumonia on imaging done 04/21. I have empirically started antibiotics and will continue to monitor clinically in the PCU. 3. Patient has metastatic malignant neoplasm of the prostate. Patient is being followed by Dr. Billings. Plan is for a cystoscopy. 4. Patient does have hematuria which does not seem to be continuing. Will send a UA. 5. Patient has right sided hydronephrosis.
[2017-04-23 16:00] VITALS: BP 99/50
[2017-04-23] MEDS: SIMVASTATIN 20 MG TAB PO SCH (20:36)
[2017-04-23 21:19] VITALS: BP 135/61
[2017-04-23 23:58] VITALS: BP 127/61
[2017-04-24] MEDS: PIPERACILLIN/TAZOBACTAM SOD 3.375 GM in D5W MINI-BAG PLUS 50 ML IV SCH ×4 (02:50→21:43)
[2017-04-24] MEDS: ONDANSETRON 4MG/2ML VIAL (J2405) IV PRN (02:54)
[2017-04-24 04:44] VITALS: BP 114/55
[2017-04-24 05:21] LABS: MEAN CORPUSCULAR HEMOGLOBIN 28.7 pg (27.0-33.0); MEAN CORPUSCULAR HGB CONC 32.1 g/dl (32.0-36.5); MEAN CORPUSCULAR VOLUME 89.4 fl (80.0-96.0); RED CELL DISTRIBUTION WIDTH 14.1 % (11.5-14.5); WHITE BLOOD COUNT 11.1 K/mm3 (4.0-10.0)
[2017-04-24 05:39] LABS: ALBUMIN 1.7 GM/DL (3.2-5.2); ALBUMIN/GLOBULIN RATIO 0.47 (1.00-1.93); ALKALINE PHOSPHATASE 137 U/L (45-117); ALT/SGPT 18 U/L (12-78); ANION GAP 10 MEQ/L (8-16); AST/SGOT 30 U/L (15-37); BILIRUBIN,TOTAL 0.3 MG/DL (0.2-1.0); BLOOD UREA NITROGEN 12 MG/DL (7-18); CALCIUM LEVEL 7.1 MG/DL (8.8-10.2); CARBON DIOXIDE LEVEL 26 MEQ/L (21-32); CHLORIDE LEVEL 100 MEQ/L (98-107); CREATININE FOR GFR 0.88 MG/DL (0.70-1.30); GLOMERULAR FILTRATION RATE > 60.0 (>42); GLUCOSE, FASTING 113 MG/DL (83-110); MAGNESIUM LEVEL 2.3 MG/DL (1.8-2.4); SODIUM LEVEL 136 MEQ/L (136-145); TOTAL PROTEIN 5.3 GM/DL (6.4-8.2)
[2017-04-24 08:00] VITALS: BP 111/53
[2017-04-24] MEDS: APIXABAN 5 MG TAB (ELIQUIS) PO SCH (09:00)
[2017-04-24] MEDS: VITAMIN B COMPLEX/VIT C CAP PO SCH (09:29)
[2017-04-24] MEDS: OCUVITE 1 TAB PO SCH (09:29)
[2017-04-24] MEDS: VITAMIN D 1,000 INTERNATIONAL UNITS TABLET PO SCH (09:29)
[2017-04-24] MEDS: DOCUSATE SODIUM 100 MG CAP PO SCH ×2 (09:29→21:44)
[2017-04-24] MEDS: PANTOPRAZOLE 40MG TAB (PROTONIX) PO SCH (09:29)
[2017-04-24] MEDS: MORPHINE 15 MG SA TAB PO SCH ×2 (09:29→21:43)
[2017-04-24] MEDS: DIGOXIN 0.125 MG TAB PO SCH (09:30)
[2017-04-24] MEDS: predniSONE 10 MG TAB PO SCH (09:30)
[2017-04-24] MEDS: XTANDI 40 MG PO SCH (09:30)
[2017-04-24] MEDS: traMADol 50 MG TAB PO SCH ×2 (09:30→21:44)
[2017-04-24] MEDS: METOPROLOL TART 25 MG TABLET PO SCH ×2 (09:30→21:44)
[2017-04-24] MEDS: SENOKOT S TAB PO SCH ×2 (09:30→21:43)
[2017-04-24] MEDS: ASPIRIN 81 MG ENTERIC TAB PO SCH (09:30)
[2017-04-24] MEDS: VANCOMYCIN HCL 1,000 MG, VIAL MATE ADAPTER 1 EACH in D5W 250 ML IV SCH ×2 (10:37→22:59)
[2017-04-24] MEDS: IBUPROFEN 200 MG TAB PO PRN (10:44)
[2017-04-24 12:00] VITALS: BP 113/57
--- NOTE | 2017-04-24 12:15 | IPN ---
DATE: 04/24/2017 Mr. Ashley is feeling somewhat better today. He has no complaints of pain or chest pain. No shortness of breath. Somewhat more energetic and somewhat more interactive. Temperature 97.2, pulse 64, respiratory rate 18, blood pressure 111/53, 96%on room air. Intake and output notable for a positive fluid balance of 490. Body mass index (BMI) 21.6. He is awake, appropriately interactive, a reasonable historian. Mucous membranes moist. Neck supple. Breathing is symmetrical. No accessory muscle use, speaking in complete sentences. He is in sinus rhythm on the monitor. Not tachycardic. Abdomen, soft, nontender. No significant lower extremity edema. White cell count is 11.1, hemoglobin 7.8, platelets of 482. Albumin 12, creatinine 0.88. He has complained of some difficulty swallowing solid food today which has happened apparently before for him. I switched him to a clear liquid diet. ASSESSMENT: This is a 77-year-old with atrial fibrillation and RVR with febrile episode. PLAN: 1. Atrial fibrillation with RVR. This has resolved. He had been on Eliquis. His hemoglobin/hematocrit (H/H) is trending downward. I have discontinued his Eliquis for now. Will repeat H/H later today. 2. The patient has had fever. The patient has been empirically started on antibiotics and awaiting culture results. 3. The patient has metastatic malignant neoplasm of the prostate. This can also cause fever. He is being by Dr. Billings. He did have hematuria which could be a cause for acute blood loss anemia. 4. The patient has right sided hydronephrosis. 5. The patient has complained of difficulty swallowing. Speech therapy is ordered and clear liquids are continued.
--- NOTE | 2017-04-24 15:19 | ECHO ---
DATE OF PROCEDURE: 04/22/2017 HEIGHT: 73 inches. WEIGHT: 160 pounds. BODY SURFACE AREA 1.96 meters squared INDICATION: Atrial fibrillation (paroxysmal). MEASUREMENTS: 2-D Measurements: RV - 4.4 cm LV - 4.4 cm Septum - 1.0cm Posterior wall - 1.0 cm Aortic root - 3.1 cm LA - 4.4 cm. LVEF - 65% Doppler Measurements: AV - 2.38 meters per second LVOT - 1.1 meters per second LVOT diameter - 1.9 cm Mean AV gradient - 11 mmHg MV-E - 110, A - 100, E/A ratio - 1.1 Early mitral deceleration time - 162 milliseconds E prime 6.5, A prime 9, E/E prime 16.8 PV - 1.1 meters per second Pulmonary artery acceleration time - 60 milliseconds RVSP 59 mmHg IVC - 1.6 cm COMMENTS: Normal sinus rhythm without AV conduction disturbance. Right bundle branch block. Atrial fibrillation has resolved from admission. Mildly dilated left atrium but normal left ventricular size. Mildly dilated right ventricle and right atrium. IVC size was normal. LV wall thickness was normal. On real-time imaging from the parasternal and apical projections wall motion was symmetrical and hyperkinetic. Mild mitral annular thickening but normal leaflet thickness and excursion with no posterior systolic buckling. Three equal size aortic cusps with mild to moderate cusp thickening but adequate cusp separation. Normal aortic root size. No apparent intracardiac mass or pericardial effusion. Color flow Doppler study taken from the parasternal and projection showed trace aortic, very mild mitral, and mild to moderate tricuspid insufficiency. Guided continuous wave Doppler of his aortic valve showed a mildly increased peak systolic velocity. Pulsed Doppler of his LV outflow tract was normal. Measured transvalvular gradient of 11 was slightly increased. His dimension of this index was 0.46 - in keeping with no more than a borderline degree of LV outflow tract obstruction. Pulsed and continuous wave Doppler of his LV inflow tract taken from the apical four-chamber projection showed normal diastolic filling velocities and pattern. His pulsed and tissue Doppler allowed our estimation of his mean left atrial pressure which appeared to be upper limits of normal to mildly increased. Pulsed and continuous wave Doppler of his pulmonary trunk showed a normal peak systolic velocity against RV outflow tract obstruction. His pulmonary artery acceleration time was significantly abbreviated consistent with an elevated pulmonary vascular resistance. Guided continuous wave Doppler of his tricuspid valve allowed our estimation of his right ventricular systolic pressure (at least moderately increased). His inferior vena cava was normal in size with normal respiratory collapse against an elevated central venous pressure though his right atrium appeared slightly dilated as well. CONCLUSIONS: Normal left ventricular size, wall thickness and hyperkinetic wall motion. Mildly dilated left atrium with Doppler evidence of borderline to slightly elevated mean left atrial pressure. Mildly dilated right heart chambers with Doppler evidence of at least moderate pulmonary hypertension. Normal IVC size and collapse against an elevated central venous pressure at this time. Marginal calcific aortic stenosis with trace insufficiency. Normal aortic root size. Mild mitral annular thickening without functional valvular abnormality.
[2017-04-24 16:00] VITALS: BP 102/57
[2017-04-24 20:00] VITALS: BP 109/56
[2017-04-24] MEDS: SIMVASTATIN 20 MG TAB PO SCH (21:43)
[2017-04-24 23:47] VITALS: BP 124/58
[2017-04-25] MEDS: PIPERACILLIN/TAZOBACTAM SOD 3.375 GM in D5W MINI-BAG PLUS 50 ML IV SCH ×4 (03:23→20:58)
[2017-04-25 04:00] VITALS: BP 117/56
[2017-04-25] MEDS: PERCOCET 5MG/325MG TAB PO PRN ×2 (05:25→23:46)
[2017-04-25 05:27] LABS: MEAN CORPUSCULAR HEMOGLOBIN 27.5 pg (27.0-33.0); MEAN CORPUSCULAR HGB CONC 30.5 g/dl (32.0-36.5); MEAN CORPUSCULAR VOLUME 90.3 fl (80.0-96.0); RED CELL DISTRIBUTION WIDTH 14.1 % (11.5-14.5); WHITE BLOOD COUNT 11.6 K/mm3 (4.0-10.0)
[2017-04-25 05:50] LABS: ALBUMIN 1.9 GM/DL (3.2-5.2); ALBUMIN/GLOBULIN RATIO 0.46 (1.00-1.93); ALKALINE PHOSPHATASE 145 U/L (45-117); ALT/SGPT 21 U/L (12-78); ANION GAP 8 MEQ/L (8-16); AST/SGOT 30 U/L (15-37); BILIRUBIN,TOTAL 0.4 MG/DL (0.2-1.0); BLOOD UREA NITROGEN 9 MG/DL (7-18); CALCIUM LEVEL 7.8 MG/DL (8.8-10.2); CARBON DIOXIDE LEVEL 27 MEQ/L (21-32); CHLORIDE LEVEL 100 MEQ/L (98-107); CREATININE FOR GFR 0.95 MG/DL (0.70-1.30); GLOMERULAR FILTRATION RATE > 60.0 (>42); GLUCOSE, FASTING 100 MG/DL (83-110); MAGNESIUM LEVEL 2.7 MG/DL (1.8-2.4); SODIUM LEVEL 135 MEQ/L (136-145)
[2017-04-25 08:00] VITALS: BP 103/54
[2017-04-25] MEDS: DIGOXIN 0.125 MG TAB PO SCH (09:00)
[2017-04-25] MEDS: METOPROLOL TART 25 MG TABLET PO SCH ×2 (09:00→20:56)
[2017-04-25] MEDS: VITAMIN D 1,000 INTERNATIONAL UNITS TABLET PO SCH (09:24)
[2017-04-25] MEDS: SENOKOT S TAB PO SCH ×2 (09:24→20:56)
[2017-04-25] MEDS: OCUVITE 1 TAB PO SCH (09:24)
[2017-04-25] MEDS: predniSONE 10 MG TAB PO SCH (09:24)
[2017-04-25] MEDS: MORPHINE 15 MG SA TAB PO SCH ×2 (09:24→20:58)
[2017-04-25] MEDS: DOCUSATE SODIUM 100 MG CAP PO SCH ×2 (09:24→20:56)
[2017-04-25] MEDS: VITAMIN B COMPLEX/VIT C CAP PO SCH (09:24)
[2017-04-25] MEDS: PANTOPRAZOLE 40MG TAB (PROTONIX) PO SCH (09:24)
[2017-04-25] MEDS: ASPIRIN 81 MG ENTERIC TAB PO SCH (09:24)
[2017-04-25] MEDS: traMADol 50 MG TAB PO SCH ×2 (09:25→20:58)
[2017-04-25] MEDS: XTANDI 40 MG PO SCH (09:26)
[2017-04-25] MEDS: VANCOMYCIN HCL 1,000 MG, VIAL MATE ADAPTER 1 EACH in D5W 250 ML IV SCH (10:00)
[2017-04-25] MEDS: VANCOMYCIN HCL 750 MG, VIAL MATE ADAPTER 1 EACH in D5W 250 ML IV SCH ×2 (10:27→20:59)
[2017-04-25] MEDS: ONDANSETRON 4MG/2ML VIAL (J2405) IV PRN (11:06)
[2017-04-25 12:00] VITALS: BP 117/56
--- NOTE | 2017-04-25 14:17 | IPN ---
DATE: 04/25/2017 Mr. Ashley is feeling well today. He has no complaints of pain, chest pain, shortness of breath. No palpitations. Tolerating a diet. He still feels somewhat weak and tired. Temperature is 97.3, pulse 59, respiratory rate 18, blood pressure 103/59, 97% on room air. Intake and output notable for a positive fluid balance of 140. Body mass index 21.7. Awake, appropriately interactive, pleasantly conversant. Mucous membranes moist. Breathing is symmetrical. I:E ratio is 1:3. No accessory muscle use. Speaking in complete sentences. Heart is in a regular rate and rhythm, appears sinus on telemetry without significant arrhythmia. Abdomen: Soft, doughy, nontender. White cell count 11.6, hemoglobin 8.4 and stable, platelets 554, BUN 9, creatinine 0.95. Stool occult blood is negative. My assessment: This is a 77-year-old with atrial fibrillation and rapid ventricular response (RVR) with febrile episode, on empiric antibiotics. Plan is as follows: 1. Patient has atrial fibrillation and RVR, totally resolved. Patient is in sinus rhythm. Patient can be transferred to medical-surgical at this time. He had been on Eliquis. Although his hemoglobin and hematocrit was trending downward, Eliquis is now discontinued. 2. The patient had fever, has been empirically started on antibiotics. Blood cultures are negative at 48 hours. Urine culture is negative. White cell count is still minimally elevated. Will continue empiric antibiotics for a short course of perhaps 5 days. Most likely source of infection would be genitourinary (). 3. The patient has metastatic malignant neoplasm of the prostate, which could also be a cause for fever. He has been followed as an outpatient by Dr. Billings. The patient did have hematuria during his stay, which could be a cause for acute blood loss anemia with plans for followup with Dr. Billings. 4. The patient has right-sided right hydronephrosis. 5. The patient has complained of difficulty swallowing and has switched to a liquid diet. Speech therapy is ordered for when that staff becomes available.
[2017-04-25 16:00] VITALS: BP 120/58
[2017-04-25 20:39] VITALS: BP 126/62
[2017-04-25] MEDS: SIMVASTATIN 20 MG TAB PO SCH (20:58)
[2017-04-26 00:25] VITALS: BP 127/58
[2017-04-26] MEDS: PIPERACILLIN/TAZOBACTAM SOD 3.375 GM in D5W MINI-BAG PLUS 50 ML IV SCH ×4 (03:10→20:38)
[2017-04-26 05:49] LABS: MEAN CORPUSCULAR HEMOGLOBIN 28.7 pg (27.0-33.0); MEAN CORPUSCULAR HGB CONC 32.3 g/dl (32.0-36.5); MEAN CORPUSCULAR VOLUME 88.9 fl (80.0-96.0); RED CELL DISTRIBUTION WIDTH 14.1 % (11.5-14.5); WHITE BLOOD COUNT 8.6 K/mm3 (4.0-10.0)
[2017-04-26 06:00] VITALS: BP 132/55
[2017-04-26 06:37] LABS: ALBUMIN 1.5 GM/DL (3.2-5.2); ALKALINE PHOSPHATASE 115 U/L (45-117); ALT/SGPT 14 U/L (12-78); ANION GAP 9 MEQ/L (8-16); AST/SGOT 34 U/L (15-37); BILIRUBIN,TOTAL 0.4 MG/DL (0.2-1.0); BLOOD UREA NITROGEN 8 MG/DL (7-18); CALCIUM LEVEL 6.8 MG/DL (8.8-10.2); CARBON DIOXIDE LEVEL 26 MEQ/L (21-32); CHLORIDE LEVEL 103 MEQ/L (98-107); CREATININE FOR GFR 0.75 MG/DL (0.70-1.30); GLOMERULAR FILTRATION RATE > 60.0 (>42); GLUCOSE, FASTING 88 MG/DL (83-110); MAGNESIUM LEVEL 2.6 MG/DL (1.8-2.4); POTASSIUM SERUM 4.1 MEQ/L (3.5-5.1); SODIUM LEVEL 138 MEQ/L (136-145); TOTAL PROTEIN 4.5 GM/DL (6.4-8.2)
[2017-04-26] MEDS: XTANDI 40 MG PO SCH ×2 (09:00→10:05)
[2017-04-26] MEDS: OCUVITE 1 TAB PO SCH (09:56)
[2017-04-26] MEDS: VITAMIN D 1,000 INTERNATIONAL UNITS TABLET PO SCH (09:56)
[2017-04-26] MEDS: traMADol 50 MG TAB PO SCH ×2 (09:56→20:38)
[2017-04-26] MEDS: MORPHINE 15 MG SA TAB PO SCH ×2 (09:57→20:37)
[2017-04-26] MEDS: predniSONE 10 MG TAB PO SCH (09:59)
[2017-04-26] MEDS: PANTOPRAZOLE 40MG TAB (PROTONIX) PO SCH (09:59)
[2017-04-26] MEDS: ASPIRIN 81 MG ENTERIC TAB PO SCH (09:59)
[2017-04-26] MEDS: SENOKOT S TAB PO SCH ×2 (09:59→20:38)
[2017-04-26] MEDS: VITAMIN B COMPLEX/VIT C CAP PO SCH (09:59)
[2017-04-26] MEDS: DOCUSATE SODIUM 100 MG CAP PO SCH ×2 (09:59→20:38)
[2017-04-26] MEDS: METOPROLOL TART 25 MG TABLET PO SCH ×2 (10:04→20:37)
[2017-04-26] MEDS: DIGOXIN 0.125 MG TAB PO SCH (10:05)
--- NOTE | 2017-04-26 11:39 | IPNPDOC ---
Text Note Date of Service The patient was seen on 04/26/17. NOTE Subjective: Patient seen and examined at bedside. No new medical complaints Objective: General: NAD, lying comfortably in bed HEENT: NC/AT Lungs: CTA B/L Heart: +S1S2, RRR Abd: soft, NT, +BS Ext: no edema A/P: This is a 77-year-old with atrial fibrillation and rapid ventricular response (RVR) with febrile episode, on empiric antibiotics. 1. Patient has atrial fibrillation and RVR, totally resolved. Patient is in sinus rhythm. He had been on Eliquis. His hemoglobin and hematocrit was trending downward, Eliquis is now discontinued. 2. The patient had fever, has been empirically started on antibiotics. Blood cultures are negative at 48 hours. Urine culture is negative. Will continue empiric antibiotics for a short course of perhaps 5 days. Most likely source of infection would be genitourinary (). 3. The patient has metastatic malignant neoplasm of the prostate, which could also be a cause for fever. He has been followed as an outpatient by Dr. Billings. The patient did have hematuria during his stay, which could be a cause for acute blood loss anemia with plans for followup with Dr. Billings. 4. The patient has right-sided right hydronephrosis. 5. The patient has complained of difficulty swallowing and has switched to a liquid diet. Speech therapy for swallow evaluation has bee ordered and is pending. VS,Fishbone, I+O VS, Fishbone, I+O Laboratory Tests 04/26/17 05:39 Red Blood Count 2.72 L, Mean Corpuscular Volume 88.9, Mean Corpuscular Hemoglobin 28.7, Mean Corpuscular Hemoglobin Concent 32.3, Red Cell Distribution Width 14.1, Calcium Level 6.8 L, Aspartate Amino Transf (AST/SGOT) 34, Alanine Aminotransferase (ALT/SGPT) 14, Alkaline Phosphatase 115, Total Bilirubin 0.4, Total Protein 4.5 #L, Albumin 1.5 #L Vital Signs Date Time Temp Pulse Resp B/P (MAP) Pulse Ox O2 Delivery O2 Flow Rate FiO2 04/26/17 10:05 64 04/26/17 10:04 122/47 04/26/17 09:57 18 Room Air 04/26/17 06:00 97.7 93 I&O- Last 24 Hours up to 6 AM 04/26/17 06:00 Intake Total 1515 ml Output Total 1700 ml Balance -185 ml VIKAS TAYLOR MD Apr 26, 2017 11:39
[2017-04-26] MEDS: VANCOMYCIN HCL 750 MG, VIAL MATE ADAPTER 1 EACH in D5W 250 ML IV SCH ×2 (11:57→22:22)
[2017-04-26 14:00] VITALS: BP 119/56
[2017-04-26] MEDS: SIMVASTATIN 20 MG TAB PO SCH (20:38)
[2017-04-26 22:00] VITALS: BP 118/74
--- NOTE | 2017-04-26 22:20 | PHACANCOPD ---
PHARMACY VANCOMYCIN DOSING Pt Demographics Demographics Patient Age:77 , Weight:74.500 , Gender: male Events Past 24 Hours Events Past 24 Hours: NO: Dialysis, Diuretic Therapy, Change in CrCl, Fever, Elevation in WBC, Pending Diagnostics, Pending Procedures, Other Vancomycin Vancomycin indication: UTI Vancomycin Target Ranges: 10-20 mcg/ml Vancomycin Load Y/N: Yes Load Dose Date Time Vancomycin Load Dose: 1500 Date: 04/23/17 Time: 1000 Vancomycin Dose Date: 04/26/17. Continue current Vancomycin Dose: [0.75 GM IV Q12H 10AM/10PM] Intermittent Dosing?: No Labs Labs Laboratory Tests Test 04/25/17 09:19 04/26/17 21:41 Vancomycin Level Trough 19.5 UG/ML (10.0-20.0) 19.4 UG/ML (10.0-20.0) Laboratory Tests 04/22/17 06:40 Red Blood Count 2.75, Mean Corpuscular Volume 90.4, Mean Corpuscular Hemoglobin 29.7, Mean Corpuscular Hemoglobin Concent 32.9, Red Cell Distribution Width 14.0 , Calcium Level 7.1, Aspartate Amino Transf (AST/SGOT) 87, Alanine Aminotransferase (ALT/SGPT) 22, Alkaline Phosphatase 152, Total Bilirubin 0.3, Total Protein 5.2, Albumin 1.7 04/23/17 04:55 Calcium Level 7.6, Aspartate Amino Transf (AST/SGOT) 48, Alanine Aminotransferase (ALT/SGPT) 20, Alkaline Phosphatase 147, Total Bilirubin 0.3, Total Protein 5.1, Albumin 1.7 04/23/17 04:56 Red Blood Count 2.84, Mean Corpuscular Volume 89.1, Mean Corpuscular Hemoglobin 29.2, Mean Corpuscular Hemoglobin Concent 32.8, Red Cell Distribution Width 14.1 04/24/17 04:54 Red Blood Count 2.72, Mean Corpuscular Volume 89.4, Mean Corpuscular Hemoglobin 28.7, Mean Corpuscular Hemoglobin Concent 32.1, Red Cell Distribution Width 14.1 , Calcium Level 7.1, Aspartate Amino Transf (AST/SGOT) 30, Alanine Aminotransferase (ALT/SGPT) 18, Alkaline Phosphatase 137, Total Bilirubin 0.3, Total Protein 5.3, Albumin 1.7 04/24/17 13:48 9/4/17 05:03 Red Blood Count 3.07, Mean Corpuscular Volume 90.3, Mean Corpuscular Hemoglobin 27.5, Mean Corpuscular Hemoglobin Concent 30.5, Red Cell Distribution Width 14.1 , Calcium Level 7.8, Aspartate Amino Transf (AST/SGOT) 30, Alanine Aminotransferase (ALT/SGPT) 21, Alkaline Phosphatase 145, Total Bilirubin 0.4, Total Protein 6.0, Albumin 1.9 04/26/17 05:39 Red Blood Count 2.72, Mean Corpuscular Volume 88.9, Mean Corpuscular Hemoglobin 28.7, Mean Corpuscular Hemoglobin Concent 32.3, Red Cell Distribution Width 14.1 , Calcium Level 6.8, Aspartate Amino Transf (AST/SGOT) 34, Alanine Aminotransferase (ALT/SGPT) 14, Alkaline Phosphatase 115, Total Bilirubin 0.4, Total Protein 4.5 #, Albumin 1.5 # Micro Microbiology 04/23/17 Blood Culture - Preliminary, Resulted No Growth after 72 hours. All specime... 04/23/17 Blood Culture - Final, Complete 04/26/17 Stool Occult Blood (LORRI) - Final, Complete 04/25/17 Stool Occult Blood (LORRI) - Final, Complete 04/26/17 MRSA Screen, Received Pending 04/23/17 Urine Culture - Final, Complete Creatinine Clearance Date:04/26/17. Creatinine Clearance: [>60 ml/min]. Assessment and Plan Maintaining Current Dose?: Yes Reason for dose change: No Dose Change Pharmacist Note Pharmacist Note Date: 04/26/17. Pharm.D. note: VANCO 0.75GM IV Q12H RESULTED IN A VANCO TROUGH = 19.4 mcg/ml. SCR 0.75 mcg/ml CONTINUE WITH CURRENT THERAPY. VIKAS MAZA PHARMACY Apr 26, 2017 22:20
[2017-04-27 06:00] VITALS: BP 115/60
[2017-04-27 06:54] LABS: MEAN CORPUSCULAR HEMOGLOBIN 29.3 pg (27.0-33.0); MEAN CORPUSCULAR HGB CONC 32.9 g/dl (32.0-36.5); MEAN CORPUSCULAR VOLUME 89.1 fl (80.0-96.0); RED CELL DISTRIBUTION WIDTH 14.1 % (11.5-14.5); WHITE BLOOD COUNT 9.8 K/mm3 (4.0-10.0)
[2017-04-27 07:11] LABS: ALBUMIN 1.7 GM/DL (3.2-5.2); ALBUMIN/GLOBULIN RATIO 0.46 (1.00-1.93); ALKALINE PHOSPHATASE 121 U/L (45-117); ALT/SGPT 15 U/L (12-78); ANION GAP 10 MEQ/L (8-16); AST/SGOT 30 U/L (15-37); BILIRUBIN,TOTAL 0.4 MG/DL (0.2-1.0); BLOOD UREA NITROGEN 6 MG/DL (7-18); CALCIUM LEVEL 6.9 MG/DL (8.8-10.2); CARBON DIOXIDE LEVEL 27 MEQ/L (21-32); CHLORIDE LEVEL 101 MEQ/L (98-107); GLOMERULAR FILTRATION RATE > 60.0 (>42); GLUCOSE, FASTING 99 MG/DL (83-110); MAGNESIUM LEVEL 2.5 MG/DL (1.8-2.4); POTASSIUM SERUM 3.4 MEQ/L (3.5-5.1); SODIUM LEVEL 138 MEQ/L (136-145); TOTAL PROTEIN 5.4 GM/DL (6.4-8.2)
[2017-04-27] MEDS: ONDANSETRON 4MG/2ML VIAL (J2405) IV PRN ×2 (08:37→14:41)
[2017-04-27 09:00] VITALS: BP 132/60
[2017-04-27] MEDS: XTANDI 40 MG PO SCH (09:00)
[2017-04-27] MEDS: VITAMIN B COMPLEX/VIT C CAP PO SCH ×2 (09:00→10:14)
[2017-04-27] MEDS: VITAMIN D 1,000 INTERNATIONAL UNITS TABLET PO SCH ×2 (09:00→10:17)
[2017-04-27] MEDS: DOCUSATE SODIUM 100 MG CAP PO SCH ×3 (09:00→21:09)
[2017-04-27] MEDS: SENOKOT S TAB PO SCH ×3 (09:00→21:12)
[2017-04-27] MEDS: OCUVITE 1 TAB PO SCH ×2 (09:00→10:13)
[2017-04-27] MEDS: ASPIRIN 81 MG ENTERIC TAB PO SCH ×2 (10:13→13:58)
[2017-04-27] MEDS: predniSONE 10 MG TAB PO SCH (10:13)
[2017-04-27] MEDS: DIGOXIN 0.125 MG TAB PO SCH (10:13)
[2017-04-27] MEDS: METOPROLOL TART 25 MG TABLET PO SCH ×2 (10:14→21:12)
[2017-04-27] MEDS: cefTRIAXone SOD 1 GM in D5W MINI-BAG PLUS 50 ML IV SCH (10:15)
[2017-04-27] MEDS: PANTOPRAZOLE 40MG TAB (PROTONIX) PO SCH (10:16)
[2017-04-27] MEDS: traMADol 50 MG TAB PO SCH ×2 (10:40→21:11)
[2017-04-27] MEDS: MORPHINE 15 MG SA TAB PO SCH ×2 (10:41→21:10)
[2017-04-27] MEDS: VANCOMYCIN HCL 750 MG, VIAL MATE ADAPTER 1 EACH in D5W 250 ML IV SCH ×2 (11:09→21:10)
--- NOTE | 2017-04-27 11:51 | IPNPDOC ---
Text Note Date of Service The patient was seen on 04/27/17. NOTE Subjective: Patient seen and examined at bedside. Complains of nausea and generalized weakness today. Objective: General: NAD, lying comfortably in bed HEENT: NC/AT Lungs: CTA B/L Heart: +S1S2, RRR Abd: soft, NT, +BS Ext: no edema A/P: This is a 77-year-old with atrial fibrillation and rapid ventricular response (RVR) with febrile episode, on empiric antibiotics. 1. Patient has atrial fibrillation and RVR, totally resolved. Patient is in sinus rhythm. He had been on Eliquis. His hemoglobin and hematocrit was trending downward, Eliquis was discontinued. 2. The patient had fever, has been empirically started on antibiotics. Blood cultures are negative. Urine culture is negative. Will continue empiric antibiotics for a short course of perhaps 5 days. Most likely source of infection would be genitourinary (). De-escalate abx to ceftriaxone. 3. The patient has metastatic malignant neoplasm of the prostate, which could also be a cause for fever. He has been followed as an outpatient by Dr. Billings. The patient did have hematuria during his stay, which could be a cause for acute blood loss anemia with plans for followup with Dr. Billings. 4. The patient has right-sided right hydronephrosis. 5. The patient has complained of difficulty swallowing and has been switched to a mechanical soft diet. He is not happy with his dietary modification. VS,Fishbone, I+O VS, Fishbone, I+O Laboratory Tests 04/27/17 06:38 Red Blood Count 2.95 L, Mean Corpuscular Volume 89.1, Mean Corpuscular Hemoglobin 29.3, Mean Corpuscular Hemoglobin Concent 32.9, Red Cell Distribution Width 14.1, Calcium Level 6.9 L, Aspartate Amino Transf (AST/SGOT) 30, Alanine Aminotransferase (ALT/SGPT) 15, Alkaline Phosphatase 121 H, Total Bilirubin 0.4, Total Protein 5.4 L, Albumin 1.7 L Vital Signs Date Time Temp Pulse Resp B/P (MAP) Pulse Ox O2 Delivery O2 Flow Rate FiO2 04/27/17 10:41 17 04/27/17 10:14 67 132/60 04/27/17 09:11 Room Air 04/27/17 09:00 97.3 96 I&O- Last 24 Hours up to 6 AM 04/27/17 06:00 Intake Total 2415 ml Output Total 1700 ml Balance 715 ml VIKAS TAYLOR MD Apr 27, 2017 11:51
[2017-04-27] MEDS ORDERED: POTASSIUM CHLORIDE 10 MEQ SR TABLET PO ONE (12:00)
[2017-04-27 15:52] VITALS: BP 130/90
[2017-04-27] MEDS: SIMVASTATIN 20 MG TAB PO SCH (21:11)
[2017-04-27 22:00] VITALS: BP 122/56
[2017-04-28 00:08] VITALS: BP 110/54
[2017-04-28 00:30] VITALS: BP 115/58
[2017-04-28 06:00] VITALS: BP 119/58
[2017-04-28 06:45] LABS: MEAN CORPUSCULAR HEMOGLOBIN 28.2 pg (27.0-33.0); MEAN CORPUSCULAR HGB CONC 31.3 g/dl (32.0-36.5); MEAN CORPUSCULAR VOLUME 90.1 fl (80.0-96.0); RED CELL DISTRIBUTION WIDTH 14.4 % (11.5-14.5); WHITE BLOOD COUNT 10.9 K/mm3 (4.0-10.0)
[2017-04-28 06:56] LABS: ALBUMIN 1.7 GM/DL (3.2-5.2); ALBUMIN/GLOBULIN RATIO 0.52 (1.00-1.93); ALKALINE PHOSPHATASE 109 U/L (45-117); ALT/SGPT 13 U/L (12-78); ANION GAP 10 MEQ/L (8-16); AST/SGOT 22 U/L (15-37); BILIRUBIN,TOTAL 0.3 MG/DL (0.2-1.0); BLOOD UREA NITROGEN 4 MG/DL (7-18); CALCIUM LEVEL 7.4 MG/DL (8.8-10.2); CARBON DIOXIDE LEVEL 26 MEQ/L (21-32); CHLORIDE LEVEL 104 MEQ/L (98-107); CREATININE FOR GFR 0.61 MG/DL (0.70-1.30); GLOMERULAR FILTRATION RATE > 60.0 (>42); GLUCOSE, FASTING 96 MG/DL (83-110); MAGNESIUM LEVEL 2.3 MG/DL (1.8-2.4); POTASSIUM SERUM 3.3 MEQ/L (3.5-5.1); SODIUM LEVEL 140 MEQ/L (136-145)
[2017-04-28] MEDS: PANTOPRAZOLE 40MG TAB (PROTONIX) PO SCH (08:04)
[2017-04-28] MEDS: cefTRIAXone SOD 1 GM in D5W MINI-BAG PLUS 50 ML IV SCH (08:04)
[2017-04-28] MEDS: DOCUSATE SODIUM 100 MG CAP PO SCH ×2 (08:05→21:49)
[2017-04-28] MEDS: VITAMIN D 1,000 INTERNATIONAL UNITS TABLET PO SCH (08:05)
[2017-04-28] MEDS: ASPIRIN 81 MG ENTERIC TAB PO SCH (08:05)
[2017-04-28] MEDS: predniSONE 10 MG TAB PO SCH (08:05)
[2017-04-28] MEDS: OCUVITE 1 TAB PO SCH (08:05)
[2017-04-28] MEDS: METOPROLOL TART 25 MG TABLET PO SCH ×2 (08:05→21:49)
[2017-04-28] MEDS: VITAMIN B COMPLEX/VIT C CAP PO SCH (08:05)
[2017-04-28] MEDS: SENOKOT S TAB PO SCH ×2 (08:05→21:48)
[2017-04-28] MEDS: MORPHINE 15 MG SA TAB PO SCH ×2 (08:08→21:47)
[2017-04-28] MEDS: DIGOXIN 0.125 MG TAB PO SCH (08:09)
[2017-04-28] MEDS: traMADol 50 MG TAB PO SCH ×2 (08:09→21:49)
[2017-04-28] MEDS: XTANDI 40 MG PO SCH (08:18)
--- NOTE | 2017-04-28 08:20 | REP ---
PORTABLE CHEST X-RAY: Single view. HISTORY: Shortness of breath. COMPARISON STUDY: April 21, 2017. FINDINGS: There is some intrafissural fluid in the minor fissure. This is unchanged. There is blunting of the right lateral pleural angle and some interstitial lung disease is seen diffusely in the bases bilaterally. There is unchanged. Pleural thickening is again noted in the right lateral apex. No new infiltrate is seen. Heart size is normal and unchanged. Oxygen delivery tubing is seen. IMPRESSION: Right-sided pleural thickening and fissural fluid. Diffuse interstitial prominence unchanged. Signed by Napoleon Garrett MD 04/28/2017 08:25 A
[2017-04-28] MEDS ORDERED: POTASSIUM CHLORIDE 10 MEQ SR TABLET PO ONE (10:00)
--- NOTE | 2017-04-28 10:07 | IPNPDOC ---
Text Note Date of Service The patient was seen on 04/28/17. NOTE Subjective: Patient seen and examined at bedside. Overnight events significant for episodes of chest pain and shortness of breath, all of which have resolved. Nausea also has essentially resolved. Still complains of weakness. Objective: General: NAD, lying comfortably in bed HEENT: NC/AT Lungs: CTA B/L Heart: +S1S2, RRR Abd: soft, NT, +BS Ext: no edema A/P: This is a 77-year-old with atrial fibrillation and rapid ventricular response (RVR) with febrile episode, on empiric antibiotics. 1. Patient has atrial fibrillation and RVR which has resolved. Patient is in sinus rhythm. He had been on Eliquis. His hemoglobin and hematocrit was trending downward, Eliquis was discontinued. 2. The patient had fever, has been empirically started on antibiotics. Blood cultures are negative. Urine culture is negative. De-escalate abx to ceftriaxone , discontinue Vancomycin. 3. The patient has metastatic malignant neoplasm of the prostate, which could also be a cause for fever. He has been followed as an outpatient by Dr. Billings. The patient did have hematuria during his stay, which could be a cause for acute blood loss anemia with plans for followup with Dr. Billings. 4. The patient has right-sided right hydronephrosis. 5. The patient has complained of difficulty swallowing and has been switched to a mechanical soft diet. He is not happy with his dietary modification. 6. Symptomatic anemia. Transfuse 2 units PRBC today. Continue to follow H/H. 7. DVT prophylaxis - mechanical prophylaxis. VS,Fishbone, I+O VS, Fishbone, I+O Laboratory Tests 04/27/17 23:10 04/28/17 06:19 Red Blood Count 2.81 L, Mean Corpuscular Volume 90.1, Mean Corpuscular Hemoglobin 28.2, Mean Corpuscular Hemoglobin Concent 31.3 L, Red Cell Distribution Width 14.4, Calcium Level 7.4 L, Aspartate Amino Transf (AST/SGOT) 22, Alanine Aminotransferase (ALT/SGPT) 13, Total Creatine Kinase 54, Alkaline Phosphatase 109, Total Bilirubin 0.3, Total Protein 5.0 L, Albumin 1.7 L Vital Signs Date Time Temp Pulse Resp B/P (MAP) Pulse Ox O2 Delivery O2 Flow Rate FiO2 04/28/17 08:09 71 04/28/17 08:09 18 Room Air 04/28/17 08:05 119/58 04/28/17 06:00 98.4 94 I&O- Last 24 Hours up to 6 AM 04/28/17 05:59 Intake Total 1710 ml Output Total 2870 ml Balance -1160 ml VIKAS TAYLOR MD Apr 28, 2017 10:07
[2017-04-28] MEDS ORDERED: CEPACOL LOZENGE PO PRN (10:45)
[2017-04-28 14:00] VITALS: BP 106/50
--- NOTE | 2017-04-28 21:11 | ECGEPIP ---
Stationary ECG Study [facility] Test Date: 2017-04-28 Pat Name: TITUS PURCELL Department: Room: [place] [address] Gender: M Phone Engineer: : [phone] Requested By: VIKAS BEAN Order Number: [id number] Reading MD: Manoj Beyer Measurements Intervals [place] Rate: 65 P: 13 WA: 148 QRS: 71 QRSD: 125 T: 13 QT: 456 QTc: 475 Interpretive Statements Normal sinus rhythm Right bundle branch block Nonspecific ST-T wave abnormalities No significant change when compared to prior tracing of 04/22/2017 Electronically Signed On 04-28-2017 21:11:08 EDT by Manoj Beyer
--- NOTE | 2017-04-28 21:12 | ECGEPIP ---
Stationary ECG Study [facility] Test Date: 2017-04-28 Pat Name: TITUS PURCELL Department: Room: [place] [address] Gender: M Information Security: : 1940 Requested By: VIKAS BEAN Order Number: [id number] Reading MD: Manoj Beyer Measurements Intervals [place] Rate: 65 P: 53 RI: 146 QRS: 73 QRSD: 130 T: 4 QT: 471 QTc: 490 Interpretive Statements Normal sinus rhythm Right bundle branch block Nonspecific ST-T wave abnormalities No significant change when compared to prior tracing of earlier this date Electronically Signed On 04-28-2017 21:12:17 EDT by Manoj Beyer
[2017-04-28] MEDS: SIMVASTATIN 20 MG TAB PO SCH (21:50)
[2017-04-28 22:00] VITALS: BP 142/63
[2017-04-28] MEDS: ONDANSETRON 4MG/2ML VIAL (J2405) IV PRN (22:53)
[2017-04-28] MEDS: PERCOCET 5MG/325MG TAB PO PRN (22:54)
[2017-04-29 06:00] VITALS: BP 133/61
[2017-04-29 08:17] LABS: BASO # 0.1 K/mm3 (0.0-0.2); BASO % 0.5 % (0.0-1.0); EOS # 0.5 K/mm3 (0.0-0.50); EOS % 3.9 % (0.0-3.0); LARGE UNSTAINED CELL # 0.2 K/mm3 (0.0-0.4); LARGE UNSTAINED CELL % 1.6 % (0.0-4.0); LYMPH # 2.2 K/mm3 (1.5-4.5); LYMPH % 15.5 % (24.0-44.0); MEAN CORPUSCULAR HEMOGLOBIN 28.2 pg (27.0-33.0); MEAN CORPUSCULAR HGB CONC 31.4 g/dl (32.0-36.5); MEAN CORPUSCULAR VOLUME 89.8 fl (80.0-96.0); MONO # 0.6 K/mm3 (0.0-0.8); MONO % 4.6 % (0.0-5.0); NEUTROPHILS # 9.6 K/mm3 (1.8-7.7); NEUTROPHILS % 73.9 % (36.0-66.0); PLATELET COUNT, AUTOMATED 490 k/mm3 (150-450)
[2017-04-29 08:40] LABS: ALBUMIN 1.8 GM/DL (3.2-5.2); ALBUMIN/GLOBULIN RATIO 0.58 (1.00-1.93); ALKALINE PHOSPHATASE 115 U/L (45-117); ALT/SGPT 13 U/L (12-78); ANION GAP 9 MEQ/L (8-16); AST/SGOT 26 U/L (15-37); BILIRUBIN,TOTAL 0.4 MG/DL (0.2-1.0); BLOOD UREA NITROGEN 6 MG/DL (7-18); CALCIUM LEVEL 7.9 MG/DL (8.8-10.2); CARBON DIOXIDE LEVEL 27 MEQ/L (21-32); CHLORIDE LEVEL 106 MEQ/L (98-107); CREATININE FOR GFR 0.63 MG/DL (0.70-1.30); GLOMERULAR FILTRATION RATE > 60.0 (>42); GLUCOSE, FASTING 97 MG/DL (83-110); POTASSIUM SERUM 4.2 MEQ/L (3.5-5.1); SODIUM LEVEL 142 MEQ/L (136-145); TOTAL PROTEIN 4.9 GM/DL (6.4-8.2)
[2017-04-29] MEDS: cefTRIAXone SOD 1 GM in D5W MINI-BAG PLUS 50 ML IV SCH (08:42)
[2017-04-29] MEDS: SENOKOT S TAB PO SCH ×2 (08:42→20:08)
[2017-04-29] MEDS: DOCUSATE SODIUM 100 MG CAP PO SCH ×2 (08:42→20:08)
[2017-04-29] MEDS: METOPROLOL TART 25 MG TABLET PO SCH ×2 (08:43→20:09)
[2017-04-29] MEDS: MORPHINE 15 MG SA TAB PO SCH ×2 (08:43→20:10)
[2017-04-29] MEDS: ASPIRIN 81 MG ENTERIC TAB PO SCH (08:43)
[2017-04-29] MEDS: DIGOXIN 0.125 MG TAB PO SCH (08:44)
[2017-04-29] MEDS: PANTOPRAZOLE 40MG TAB (PROTONIX) PO SCH (08:44)
[2017-04-29] MEDS: VITAMIN D 1,000 INTERNATIONAL UNITS TABLET PO SCH (08:44)
[2017-04-29] MEDS: predniSONE 10 MG TAB PO SCH (08:44)
[2017-04-29] MEDS: VITAMIN B COMPLEX/VIT C CAP PO SCH (08:44)
[2017-04-29] MEDS: traMADol 50 MG TAB PO SCH ×2 (08:45→20:11)
[2017-04-29] MEDS: OCUVITE 1 TAB PO SCH (08:51)
[2017-04-29] MEDS: XTANDI 40 MG PO SCH (09:00)
--- NOTE | 2017-04-29 11:09 | IPNPDOC ---
Text Note Date of Service The patient was seen on 04/29/17. NOTE Subjective: Patient seen and examined at bedside. Patient feels well today. No new medical complaints. Objective: General: NAD, lying comfortably in bed HEENT: NC/AT Lungs: CTA B/L Heart: +S1S2, RRR Abd: soft, NT, +BS Ext: no edema A/P: This is a 77-year-old with atrial fibrillation and rapid ventricular response (RVR) with febrile episode, on empiric antibiotics. 1. Patient has atrial fibrillation and RVR which has resolved. Patient is in sinus rhythm. He had been on Eliquis. His hemoglobin and hematocrit was trending downward, Eliquis was discontinued. 2. The patient had fever, has been empirically started on antibiotics. Blood cultures are negative. Urine culture is negative. De-escalate abx to ceftriaxone , discontinue Vancomycin. 3. The patient has metastatic malignant neoplasm of the prostate, which could also be a cause for fever. He has been followed as an outpatient by Dr. Billings. The patient did have hematuria during his stay, which could be a cause for acute blood loss anemia with plans for followup with Dr. Billings. 4. The patient has right-sided right hydronephrosis. 5. The patient has complained of difficulty swallowing and has been switched to a mechanical soft diet. He is not happy with his dietary modification. 6. Symptomatic anemia. S/p 2 units PRBC. Stable. Continue to follow H/H. 7. DVT prophylaxis - mechanical prophylaxis. Dispo: Pending eval by PT and stable H/H. VS,Fishbone, I+O VS, Fishbone, I+O Laboratory Tests 04/29/17 07:50 Red Blood Count 3.63 L, Mean Corpuscular Volume 89.8, Mean Corpuscular Hemoglobin 28.2, Mean Corpuscular Hemoglobin Concent 31.4 L, Red Cell Distribution Width 15.0 H, Neutrophils (%) (Auto) 73.9 H, Lymphocytes (%) (Auto ) 15.5 L, Monocytes (%) (Auto) 4.6, Eosinophils (%) (Auto) 3.9 H, Basophils (%) (Auto) 0.5, Neutrophils # (Auto) 9.6 H, Lymphocytes # (Auto) 2.2, Monocytes # ( Auto) 0.6, Eosinophils # (Auto) 0.5, Basophils # (Auto) 0.1, Calcium Level 7.9 L , Aspartate Amino Transf (AST/SGOT) 26, Alanine Aminotransferase (ALT/SGPT) 13, Alkaline Phosphatase 115, Total Bilirubin 0.4, Total Protein 4.9 L, Albumin 1.8 L Vital Signs Date Time Temp Pulse Resp B/P (MAP) Pulse Ox O2 Delivery O2 Flow Rate FiO2 04/29/17 08:45 18 04/29/17 08:44 66 04/29/17 08:43 120/58 04/29/17 06:00 98.1 97 Room Air I&O- Last 24 Hours up to 6 AM 04/29/17 05:59 Intake Total 2010 ml Output Total 725 ml Balance 1285 ml VIKAS TAYLOR MD Apr 29, 2017 11:09
[2017-04-29 14:00] VITALS: BP 130/60
[2017-04-29] MEDS: SIMVASTATIN 20 MG TAB PO SCH (20:09)
[2017-04-29 22:00] VITALS: BP 135/62
[2017-04-29] MEDS: ACETAMINOPHEN TAB 650MG DOSE (2X325MG) PO PRN (23:28)
[2017-04-30] MEDS: PERCOCET 5MG/325MG TAB PO PRN ×3 (00:06→18:44)
[2017-04-30 06:00] VITALS: BP 147/67
[2017-04-30 06:33] LABS: MEAN CORPUSCULAR HEMOGLOBIN 29.3 pg (27.0-33.0); MEAN CORPUSCULAR HGB CONC 32.8 g/dl (32.0-36.5); MEAN CORPUSCULAR VOLUME 89.3 fl (80.0-96.0); RED CELL DISTRIBUTION WIDTH 14.9 % (11.5-14.5); WHITE BLOOD COUNT 13.4 K/mm3 (4.0-10.0)
[2017-04-30 06:56] LABS: ANION GAP 7 MEQ/L (8-16); BLOOD UREA NITROGEN 8 MG/DL (7-18); CALCIUM LEVEL 8.2 MG/DL (8.8-10.2); CARBON DIOXIDE LEVEL 29 MEQ/L (21-32); CHLORIDE LEVEL 105 MEQ/L (98-107); CREATININE FOR GFR 0.66 MG/DL (0.70-1.30); GLOMERULAR FILTRATION RATE > 60.0 (>42); GLUCOSE, FASTING 94 MG/DL (83-110); POTASSIUM SERUM 3.8 MEQ/L (3.5-5.1); SODIUM LEVEL 141 MEQ/L (136-145)
--- NOTE | 2017-04-30 08:11 | IPNPDOC ---
Text Note Date of Service The patient was seen on 04/30/17. NOTE Subjective: Patient seen and examined at bedside. No new medical complaints. Objective: General: elderly, NAD, lying comfortably in bed HEENT: NC/AT Lungs: CTA B/L Heart: +S1S2, RRR Abd: soft, NT, +BS Ext: no edema A/P: This is a 77-year-old with atrial fibrillation and rapid ventricular response (RVR) with febrile episode, on empiric antibiotics. 1. Patient has atrial fibrillation and RVR which has resolved. He had been on Eliquis. His hemoglobin and hematocrit was trending downward, Eliquis was discontinued. 2. The patient had fever, has been empirically started on antibiotics. Blood cultures are negative. Urine culture is negative. Discontinuing antimicrobial therapy today. Still with some minimal leukocytosis, no obvious source of infection. 3. The patient has metastatic malignant neoplasm of the prostate, which could also be a cause for fever. He has been followed as an outpatient by Dr. Blilings. The patient did have hematuria during his stay, which could be a cause for acute blood loss anemia with plans for followup with Dr. Billings. 4. The patient has right-sided right hydronephrosis. 5. The patient has complained of difficulty swallowing and has been switched to a mechanical soft diet. He is not happy with his dietary modification. 6. Symptomatic anemia. S/p 2 units PRBC. Stable. Continue to follow H/H. 7. DVT prophylaxis - mechanical prophylaxis. Dispo: Continue with PT for safe discharge, possibly home with services. VS,Fishbone, I+O VS, Fishbone, I+O Laboratory Tests 04/30/17 05:57 Red Blood Count 3.52 L, Mean Corpuscular Volume 89.3, Mean Corpuscular Hemoglobin 29.3, Mean Corpuscular Hemoglobin Concent 32.8, Red Cell Distribution Width 14.9 H, Calcium Level 8.2 L Vital Signs Date Time Temp Pulse Resp B/P (MAP) Pulse Ox O2 Delivery O2 Flow Rate FiO2 04/30/17 06:00 98.3 68 17 147/67 (93) 99 Room Air I&O- Last 24 Hours up to 6 AM 04/30/17 06:00 Intake Total 1470 ml Output Total 925 ml Balance 545 ml VIKAS TAYLOR MD Apr 30, 2017 08:11
[2017-04-30] MEDS: VITAMIN D 1,000 INTERNATIONAL UNITS TABLET PO SCH (08:55)
[2017-04-30] MEDS: VITAMIN B COMPLEX/VIT C CAP PO SCH (08:55)
[2017-04-30] MEDS: traMADol 50 MG TAB PO SCH ×2 (08:56→20:16)
[2017-04-30] MEDS: MORPHINE 15 MG SA TAB PO SCH ×2 (08:56→20:16)
[2017-04-30] MEDS: OCUVITE 1 TAB PO SCH (08:56)
[2017-04-30] MEDS: ASPIRIN 81 MG ENTERIC TAB PO SCH (08:57)
[2017-04-30] MEDS: METOPROLOL TART 25 MG TABLET PO SCH ×2 (08:57→20:15)
[2017-04-30] MEDS: predniSONE 10 MG TAB PO SCH (08:57)
[2017-04-30] MEDS: DIGOXIN 0.125 MG TAB PO SCH (08:57)
[2017-04-30] MEDS: DOCUSATE SODIUM 100 MG CAP PO SCH ×2 (08:57→20:15)
[2017-04-30] MEDS: PANTOPRAZOLE 40MG TAB (PROTONIX) PO SCH (08:58)
[2017-04-30] MEDS: SENOKOT S TAB PO SCH ×2 (08:58→20:15)
[2017-04-30] MEDS: XTANDI 40 MG PO SCH (09:02)
[2017-04-30 10:33] VITALS: BP 162/72
--- NOTE | 2017-04-30 11:02 | REP ---
Clinical: Chest pain. Comparison: 04/27/2017. Findings: Mediastinum and cardiac silhouette are stable. Lung campoverde demonstrate diffuse chronic interstitial changes. Trapped fluid is suggested in the right minor fissure and consistent with recent CT dated 04/21/17. No further obvious acute consolidation, definite effusion or pneumothorax appreciated. However subtle small layering pleural effusions cannot be excluded. Skeletal structures demonstrate stable degenerative changes. Impression: Chronic stable interstitial changes and small amount of presumed trapped fluid in the right minor fissure similar to prior examination and recent CT dated 04/21/2017. Signed by Tejas Tristan MD 04/30/2017 10:53 A
[2017-04-30] MEDS: ACETAMINOPHEN TAB 650MG DOSE (2X325MG) PO PRN (13:13)
[2017-04-30 14:00] VITALS: BP 140/63
[2017-04-30] MEDS: IBUPROFEN 200 MG TAB PO PRN (15:53)
[2017-04-30] MEDS: SIMVASTATIN 20 MG TAB PO SCH (20:15)
[2017-04-30 22:00] VITALS: BP 156/70
[2017-05-01] MEDS: IBUPROFEN 200 MG TAB PO PRN ×3 (00:10→18:49)
[2017-05-01] MEDS: ONDANSETRON 4MG/2ML VIAL (J2405) IV PRN ×2 (02:04→21:37)
[2017-05-01] MEDS: PERCOCET 5MG/325MG TAB PO PRN ×3 (03:13→22:50)
[2017-05-01 05:56] LABS: MEAN CORPUSCULAR HEMOGLOBIN 28.8 pg (27.0-33.0); MEAN CORPUSCULAR HGB CONC 31.9 g/dl (32.0-36.5); MEAN CORPUSCULAR VOLUME 90.2 fl (80.0-96.0); WHITE BLOOD COUNT 13.8 K/mm3 (4.0-10.0)
[2017-05-01 06:00] VITALS: BP 165/72
[2017-05-01 06:18] LABS: ANION GAP 9 MEQ/L (8-16); BLOOD UREA NITROGEN 9 MG/DL (7-18); CALCIUM LEVEL 7.9 MG/DL (8.8-10.2); CARBON DIOXIDE LEVEL 28 MEQ/L (21-32); CHLORIDE LEVEL 104 MEQ/L (98-107); CREATININE FOR GFR 0.61 MG/DL (0.70-1.30); GLOMERULAR FILTRATION RATE > 60.0 (>42); GLUCOSE, FASTING 101 MG/DL (83-110); POTASSIUM SERUM 3.8 MEQ/L (3.5-5.1); SODIUM LEVEL 141 MEQ/L (136-145)
[2017-05-01] MEDS: ACETAMINOPHEN TAB 650MG DOSE (2X325MG) PO PRN (06:32)
[2017-05-01] MEDS: OCUVITE 1 TAB PO SCH (08:25)
[2017-05-01] MEDS: VITAMIN B COMPLEX/VIT C CAP PO SCH (08:25)
[2017-05-01] MEDS: MORPHINE 15 MG SA TAB PO SCH (08:25)
[2017-05-01] MEDS: PANTOPRAZOLE 40MG TAB (PROTONIX) PO SCH (08:25)
[2017-05-01] MEDS: SENOKOT S TAB PO SCH ×2 (08:26→20:30)
[2017-05-01] MEDS: traMADol 50 MG TAB PO SCH ×2 (08:26→20:31)
[2017-05-01] MEDS: VITAMIN D 1,000 INTERNATIONAL UNITS TABLET PO SCH (08:26)
[2017-05-01] MEDS: DIGOXIN 0.125 MG TAB PO SCH (08:27)
[2017-05-01] MEDS: predniSONE 10 MG TAB PO SCH (08:27)
[2017-05-01] MEDS: METOPROLOL TART 25 MG TABLET PO SCH ×2 (08:27→20:31)
[2017-05-01] MEDS: ASPIRIN 81 MG ENTERIC TAB PO SCH (08:27)
[2017-05-01] MEDS: DOCUSATE SODIUM 100 MG CAP PO SCH ×2 (08:27→20:31)
[2017-05-01] MEDS: XTANDI 40 MG PO SCH (08:31)
--- NOTE | 2017-05-01 09:10 | ECGEPIP ---
Stationary ECG Study [facility] Test Date: 2017-04-30 Pat Name: TITUS PURCELL Department: Room: [place] [address] Gender: M Manager Account Management: : 1940 Requested By: DIA LEIJA Order Number: [id number] Reading MD: Manoj Beyer Measurements Intervals [place] Rate: 70 P: 49 [place]: 138 QRS: 68 QRSD: 121 T: 39 QT: 431 QTc: 465 Interpretive Statements Normal sinus rhythm Right bundle branch block Nonspecific ST-T wave abnormalities No significant change when compared to prior tracing of 04/28/2017 Electronically Signed On 05-01-2017 9:10:18 EDT by Manoj Beyer
--- NOTE | 2017-05-01 09:54 | IPNPDOC ---
Text Note Date of Service The patient was seen on 05/01/17. NOTE Subjective: Patient seen and examined at bedside. Complaining of generalized pain today. Also states has had some diarrhea. Objective: General: elderly, NAD, lying comfortably in bed HEENT: NC/AT Lungs: CTA B/L Heart: +S1S2, RRR Abd: soft, NT, +BS Ext: no edema A/P: This is a 77-year-old with atrial fibrillation and rapid ventricular response (RVR) with febrile episode, on empiric antibiotics. 1. Patient has atrial fibrillation and RVR which has resolved. He had been on Eliquis. His hemoglobin and hematocrit was trending downward, Eliquis was discontinued. 2. The patient had fever, has been empirically started on antibiotics. Blood cultures are negative. Urine culture is negative. Discontinued anti-microbial. 3. The patient has metastatic malignant neoplasm of the prostate, which could also be a cause for fever. He has been followed as an outpatient by Dr. Billings. The patient did have hematuria during his stay, which could be a cause for acute blood loss anemia with plans for followup with Dr. Billings. 4. The patient has right-sided right hydronephrosis. 5. The patient has complained of difficulty swallowing and has been switched to a mechanical soft diet. He is not happy with his dietary modification. 6. Symptomatic anemia. S/p 2 units PRBC. Stable. Continue to follow H/H. 7. Chronic pain - increased MS Contin to 20 mg BID 8. Diarrhea - GI panel 7. DVT prophylaxis - mechanical prophylaxis. Code Status: Discussed advanced directives, patient has decided for DNR/DNI. Dispo: Continue with PT for safe discharge, possibly home with services. VS,Fishbone, I+O VS, Fishbone, I+O Laboratory Tests 05/01/17 05:17 Red Blood Count 3.64 L, Mean Corpuscular Volume 90.2, Mean Corpuscular Hemoglobin 28.8, Mean Corpuscular Hemoglobin Concent 31.9 L, Red Cell Distribution Width 15.0 H, Calcium Level 7.9 L Vital Signs Date Time Temp Pulse Resp B/P (MAP) Pulse Ox O2 Delivery O2 Flow Rate FiO2 05/01/17 08:27 75 05/01/17 08:27 157/65 05/01/17 08:26 20 05/01/17 06:00 97.2 95 Room Air I&O- Last 24 Hours up to 6 AM 05/01/17 06:00 Intake Total 1680 ml Output Total 1000 ml Balance 680 ml VIKAS TAYLOR MD May 01, 2017 09:54
[2017-05-01 14:00] VITALS: BP 132/63
[2017-05-01] MEDS: oxyCODONE 10 MG CR TAB PO SCH (20:30)
[2017-05-01] MEDS: SIMVASTATIN 20 MG TAB PO SCH (20:31)
[2017-05-01 20:40] VITALS: BP 138/62
[2017-05-01] MEDS ORDERED: MORPHINE 15 MG SA TAB PO SCH (21:00)
[2017-05-02] MEDS ORDERED: MORPHINE 2 MG/ML 1ML SYRINGE IV ONE ×2 (01:45→06:50)
[2017-05-02] MEDS: IBUPROFEN 200 MG TAB PO PRN ×2 (03:22→14:32)
[2017-05-02] MEDS ORDERED: IBUPROFEN 400 MG TAB PO ONE (03:45)
[2017-05-02] MEDS: PERCOCET 5MG/325MG TAB PO PRN ×2 (04:12→11:59)
[2017-05-02 05:20] VITALS: BP 166/73
[2017-05-02 06:39] LABS: MEAN CORPUSCULAR HEMOGLOBIN 28.9 pg (27.0-33.0); MEAN CORPUSCULAR HGB CONC 32.6 g/dl (32.0-36.5); MEAN CORPUSCULAR VOLUME 88.7 fl (80.0-96.0); RED CELL DISTRIBUTION WIDTH 14.8 % (11.5-14.5); WHITE BLOOD COUNT 13.3 K/mm3 (4.0-10.0)
[2017-05-02 06:54] LABS: ANION GAP 6 MEQ/L (8-16); BLOOD UREA NITROGEN 8 MG/DL (7-18); CALCIUM LEVEL 7.8 MG/DL (8.8-10.2); CARBON DIOXIDE LEVEL 30 MEQ/L (21-32); CHLORIDE LEVEL 102 MEQ/L (98-107); CREATININE FOR GFR 0.58 MG/DL (0.70-1.30); GLOMERULAR FILTRATION RATE > 60.0 (>42); GLUCOSE, FASTING 88 MG/DL (83-110); POTASSIUM SERUM 3.8 MEQ/L (3.5-5.1); SODIUM LEVEL 138 MEQ/L (136-145)
[2017-05-02] MEDS: XTANDI 40 MG PO SCH (09:00)
--- NOTE | 2017-05-02 09:02 | REP ---
Clinical: Back pain with known metastatic disease. Technique: Axial noncontrast images from C4 through T12 with coronal and sagittal re-formations. Findings: Moderate age-related multilevel degenerative changes include exaggerated kyphosis, marginal bridging osteophytes, endplate heterogeneity and disc space narrowing. There is no evidence for acute fracture / compression injury or subluxation. No lytic or blastic lesions noted through the thoracic spine. However, there is a lytic lesion incompletely evaluated involving the right side of the L1 vertebral body extending through the pedicle to the lamina which may represent hemangioma or metastatic focus. The spinal canal is patent and without stenosis. The posterior elements and spinous processes of the thoracic spine including the visualized portions of the bilateral ribs appear intact and without osseous abnormality. The lung campoverde and straight and partially loculated moderate right pleural effusion along with scattered subpleural nodular densities and right lower lobe atelectasis/consolidation. A small left pleural effusion and passive atelectasis is appreciated with partially calcified pleural plaques and evidence for mediastinal/hilar adenopathy. Impression: 1. 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 2. Lytic lesion involving the visualized portion of the L1 vertebral body may represent hemangioma or metastatic focus. 3. Bilateral pleuroparenchymal changes with adenopathy, subpleural mass lesions and partially calcified pleural plaques similar to chest CT dated 04/21/2017. Signed by Tejas Tristan MD 05/02/2017 08:53 A
[2017-05-02] MEDS: DIGOXIN 0.125 MG TAB PO SCH (09:34)
[2017-05-02] MEDS: METOPROLOL TART 25 MG TABLET PO SCH ×2 (09:34→20:06)
[2017-05-02] MEDS: DOCUSATE SODIUM 100 MG CAP PO SCH ×2 (09:35→20:06)
[2017-05-02] MEDS: oxyCODONE 10 MG CR TAB PO SCH ×2 (09:35→20:05)
[2017-05-02] MEDS: predniSONE 10 MG TAB PO SCH (09:35)
[2017-05-02] MEDS: SENOKOT S TAB PO SCH ×2 (09:35→20:06)
[2017-05-02] MEDS: VITAMIN D 1,000 INTERNATIONAL UNITS TABLET PO SCH (09:35)
[2017-05-02] MEDS: PANTOPRAZOLE 40MG TAB (PROTONIX) PO SCH (09:35)
[2017-05-02] MEDS: VITAMIN B COMPLEX/VIT C CAP PO SCH (09:35)
[2017-05-02] MEDS: ASPIRIN 81 MG ENTERIC TAB PO SCH (09:35)
[2017-05-02] MEDS: OCUVITE 1 TAB PO SCH (09:35)
--- NOTE | 2017-05-02 10:15 | IPNPDOC ---
Text Note Date of Service The patient was seen on 05/02/17. NOTE Subjective: Patient seen and examined at bedside. Overnight events significant for persistent pain. Patient did make a comment regarding harm to self, and sitter was implemented. Discussed with patient today, and expresses regret over his statement. Expressed no suicidal ideation. Reiterated his frustration with controlling his pain. No new medical complaints. Objective: General: elderly, NAD, lying comfortably in bed HEENT: NC/AT Lungs: CTA B/L Heart: +S1S2, RRR Abd: soft, NT, +BS Ext: no edema A/P: This is a 77-year-old with atrial fibrillation and rapid ventricular response (RVR) with febrile episode, on empiric antibiotics. 1. Patient has atrial fibrillation and RVR which has resolved. He had been on Eliquis. His hemoglobin and hematocrit was trending downward, Eliquis was discontinued. 2. The patient had fever, has been empirically started on antibiotics. Blood cultures are negative. Urine culture is negative. Discontinued anti-microbial. 3. The patient has metastatic malignant neoplasm of the prostate, which could also be a cause for fever. He has been followed as an outpatient by Dr. Billings. The patient did have hematuria during his stay, which could be a cause for acute blood loss anemia with plans for followup with Dr. Billings. 4. The patient has right-sided right hydronephrosis. 5. The patient has complained of difficulty swallowing and has been switched to a mechanical soft diet. He is not happy with his dietary modification. 6. Symptomatic anemia. S/p 2 units PRBC. Stable. Continue to follow H/H. 7. Chronic pain - transitioned MS Contin to oxcyontin 20 mg BID - added IV morphine for breakthrough - pain management consultation pending 8. Diarrhea - GI panel 7. DVT prophylaxis - mechanical prophylaxis. Code Status: Discussed advanced directives, patient has decided for DNR/DNI. Dispo: Continue with PT for safe discharge, pain management consultation pending , anticipating discharge home possibly with services. VS,Fishbone, I+O VS, Fishbone, I+O Laboratory Tests 05/02/17 05:50 Red Blood Count 3.65 L, Mean Corpuscular Volume 88.7, Mean Corpuscular Hemoglobin 28.9, Mean Corpuscular Hemoglobin Concent 32.6, Red Cell Distribution Width 14.8 H, Calcium Level 7.8 L Vital Signs Date Time Temp Pulse Resp B/P (MAP) Pulse Ox O2 Delivery O2 Flow Rate FiO2 05/02/17 09:35 18 Room Air 05/02/17 09:34 74 05/02/17 09:34 166/73 05/02/17 05:20 98.7 97 I&O- Last 24 Hours up to 6 AM 05/02/17 06:00 Intake Total 480 ml Output Total 840 ml Balance -360 ml VIKAS TAYLOR MD May 02, 2017 10:15
[2017-05-02] MEDS: MORPHINE 2 MG/ML 1ML SYRINGE IV PRN ×2 (10:32→17:45)
[2017-05-02 14:00] VITALS: BP 134/61
[2017-05-02 19:50] VITALS: BP 140/60
[2017-05-02] MEDS: SIMVASTATIN 20 MG TAB PO SCH (20:06)
[2017-05-03] MEDS: PERCOCET 5MG/325MG TAB PO PRN (03:51)
[2017-05-03] MEDS: ONDANSETRON 4MG/2ML VIAL (J2405) IV PRN (04:32)
[2017-05-03 05:08] VITALS: BP 116/58
[2017-05-03 06:42] LABS: MEAN CORPUSCULAR HGB CONC 32.4 g/dl (32.0-36.5); MEAN CORPUSCULAR VOLUME 89.4 fl (80.0-96.0); RED CELL DISTRIBUTION WIDTH 14.9 % (11.5-14.5)
[2017-05-03 06:54] LABS: ANION GAP 6 MEQ/L (8-16); BLOOD UREA NITROGEN 10 MG/DL (7-18); CALCIUM LEVEL 7.6 MG/DL (8.8-10.2); CARBON DIOXIDE LEVEL 29 MEQ/L (21-32); CHLORIDE LEVEL 104 MEQ/L (98-107); CREATININE FOR GFR 0.56 MG/DL (0.70-1.30); GLOMERULAR FILTRATION RATE > 60.0 (>42); GLUCOSE, FASTING 86 MG/DL (83-110); POTASSIUM SERUM 3.8 MEQ/L (3.5-5.1); SODIUM LEVEL 139 MEQ/L (136-145)
[2017-05-03 09:00] VITALS: BP 124/58
[2017-05-03] MEDS: XTANDI 40 MG PO SCH (09:00)
[2017-05-03] MEDS: VITAMIN B COMPLEX/VIT C CAP PO SCH (09:03)
[2017-05-03] MEDS: OCUVITE 1 TAB PO SCH (09:03)
[2017-05-03] MEDS: PANTOPRAZOLE 40MG TAB (PROTONIX) PO SCH (09:04)
[2017-05-03] MEDS: DIGOXIN 0.125 MG TAB PO SCH (09:04)
[2017-05-03] MEDS: predniSONE 10 MG TAB PO SCH (09:04)
[2017-05-03 09:05] VITALS: BP 124/58
[2017-05-03] MEDS: SENOKOT S TAB PO SCH (09:05)
[2017-05-03] MEDS: METOPROLOL TART 25 MG TABLET PO SCH (09:05)
[2017-05-03] MEDS: DOCUSATE SODIUM 100 MG CAP PO SCH (09:05)
[2017-05-03] MEDS: VITAMIN D 1,000 INTERNATIONAL UNITS TABLET PO SCH (09:05)
[2017-05-03] MEDS: ASPIRIN 81 MG ENTERIC TAB PO SCH (09:05)
[2017-05-03] MEDS: oxyCODONE 10 MG CR TAB PO SCH (09:07)
[2017-05-03] MEDS: IBUPROFEN 200 MG TAB PO PRN (12:15)
[2017-05-03] MEDS ORDERED: DIGO0.12 PO (12:49)
[2017-05-03 14:00] VITALS: BP 136/64
--- NOTE | 2017-05-03 22:34 | DSES ---
DATE OF ADMISSION: 04/21/2017 DATE OF DISCHARGE: 05/03/2017 RADIATION ONCOLOGY MANAGER: Ovidio Rosas MD ONCOLOGIST: Maura Prakash MD RADIATION ONCOLOGIST: Eugenio Giordano MD UROLOGIST: Clif Billings MD PRIMARY CARE PROVIDER: Darrell Dominguez DO DISCHARGE DIAGNOSES: 1. Atrial fibrillation with rapid ventricular response. 2. Acute blood loss anemia secondary to hematuria. 3. Fever. 4. Metastatic prostate cancer. 5. Right-sided hydronephrosis. 6. Symptomatic anemia. 7. Chronic pain. 8. Diarrhea. HISTORY OF PRESENT ILLNESS: This is a 77-year-old male patient with underlying medical history of prostate cancer stage IV with metastases to the femur, knees, back, and lung with malignant pleural effusion that has been drained by Dr. Acosta, type 2 diabetes not on insulin, hypertension, dyslipidemia, vitamin D deficiency, chronic pain, macular degeneration, hypotension, renal stone, presented with atrial fibrillation with rapid ventricular response of 130. The patient denies any shortness of breath, generalized weakness. The patient had a visiting nurse seeing the patient yesterday who found the patient's blood pressure was low, around 68/36 at home, patient's beta robe has been reduced. Patient given Lopressor and digoxin in the emergency room, converted to sinus rhythm. Called hospitalist for admitting the patient with borderline blood pressure. Patient denies any chest pain, shortness of breath, palpitations, nausea, vomiting, abdominal pain. Reported dark urine with blood. HOSPITAL COURSE: Patient is admitted to the hospital under telemetry monitoring. Echocardiogram was done. Patient's beta robe and digoxin has been adjusted. Patient's cardiac enzymes were also followed. Case was discussed with Dr. Billings who recommended outpatient followup for cystoscopy and stent change. Patient's kidney function was monitored and patient's hydronephrosis has also been discussed with Dr. Billings who believes that the patient's stent had to be changed in the next cystoscopy, but given patient's kidney function remained pretty much baseline and improved, no acute intervention at this time as per Dr. Billings. Patient was also found to have progressively worsening anemia, transfused two units packed red blood cells (PRBCs). Patient's Eliquis was on hold given urine shows evidence of hematuria. After the discontinuation of Eliquis, patient's hematuria improved as per patient and hemoglobin and hematocrit remained stable. Physical therapy has been done. Patient's culture was also followed, treated with antibiotics initially but after culture was negative, antibiotics were discontinued. Physical therapy has seen the patient and determined that patient needs 24/7 care at home which family reported being able to offer. Subsequently, arrangements are made for patient to be discharged from the hospital with outpatient followup. Patient currently is tolerating oral, able to ambulate, comfortable, in no significant pain. VITAL SIGNS: Temperature 98.3, pulse 72, respirations 14, blood pressure 124/58, pulse oximetry 94% on room air. GENERAL: Patient alert, in no acute distress. HEENT: Normocephalic, atraumatic. PULMONARY: Bilaterally clear to auscultation. CARDIAC: Regular rate and rhythm, normal S1, S2. ABDOMEN: Soft, nontender. Positive bowel sounds. EXTREMITIES: No edema bilateral lower extremities. LABORATORY DATA: WBC 12, hemoglobin and hematocrit 10/30.7, platelets 422. Chemistry: Sodium 139, potassium 3.8, chloride 104, bicarbonate 29, BUN 10, creatinine 0.56. DISCHARGE MEDICATIONS: - digoxin 0.125 mg by mouth daily - aspirin 162 mg by mouth daily - vitamin B complex by mouth daily - oyster shell one tablet by mouth daily - vitamin D3 2000 units by mouth daily - coenzyme Q10 400 mg by mouth daily - denosumab 120 mg subcutaneous monthly injection as per oncology - Colace 100 mg by mouth twice a day - enzalutamide 120 mg by mouth daily - Lupron Depot 45 mg by mouth intramuscular (IM) injection as directed - magnesium citrate 300 mL by mouth daily as needed - metoprolol succinate 25 mg by mouth twice a day - morphine sulfate extended release 15 mg by mouth twice a day - multivitamin one tablet by mouth daily - Zofran 8 mg by mouth three times a day as needed - oxycodone/acetaminophen 5/325 mg by mouth one tablet three times a day as needed - MiraLAX 17 grams by mouth daily as needed - prednisone 10 mg by mouth daily - Zocor 20 mg by mouth nightly - tramadol 50 mg by mouth twice a day DISCHARGE INSTRUCTIONS: Patient is instructed to followup with Dr. Billings as soon as possible, preferably in 7 days, followup with cardiology in 12 days, and followup with patient's primary care provider in 7 days. Patient is instructed to followup with primary care provider and urology regarding the best time frame to restart patient's Eliquis. Return to the hospital if symptoms worsen. Home healthcare referral has been made. Patient has 24/ care at home.
== END 2017-05-03 15:55 | disposition home health service (06) | DRG 309 ==
LOC: M ED 09:52 → M ED INP 19:36 → M PCU 23:33 → M MSPAV 04-26 00:40
PROVIDERS: ADMIT Hospitalist; ATTEND Hospitalist
PROC: 30253N1 (ICD-10-PCS; principal; 2017-04-28)
DX: I48.91 Unspecified atrial fibrillation (principal); C79.51 Secondary malignant neoplasm of bone; C78.00 Secondary malignant neoplasm of unspecified lung; J91.0 Malignant pleural effusion; N13.30 Unspecified hydronephrosis; D63.0 Anemia in neoplastic disease; E11.9 Type 2 diabetes mellitus without complications; I10 Essential (primary) hypertension; C61 Malignant neoplasm of prostate; R19.7 Diarrhea, unspecified; E55.9 Vitamin D deficiency, unspecified; E78.5 Hyperlipidemia, unspecified; G89.29 Other chronic pain; H35.30 Unspecified macular degeneration; Z79.82 Long term (current) use of aspirin; Z79.891 Long term (current) use of opiate analgesic; Z79.899 Other long term (current) drug therapy; Z79.51 Long term (current) use of inhaled steroids; Z79.01 Long term (current) use of anticoagulants

== ENCOUNTER → 2017-04-21 | Outpatient (CLI) | payer MEDICARE, OTHER ==
--- NOTE | 2017-04-21 09:23 | REP ---
CHEST, TWO VIEWS: HISTORY: Pleural effusion . COMPARISON: 04/15/2017 The lungs are hyperinflated. An increase in interstitial markings is present in the lungs. Increased density is present in the right lower lobe consistent with atelectasis or infiltrate unchanged compared to the previous study. A small right pleural effusion is present unchanged compared to the previous study. There is blunting of the left costophrenic angle that may represent a small pleural effusion unchanged compared to the previous study. Pleural-based densities are present in the right hemithorax. The heart is normal in size. The pulmonary vasculature is prominent. Degenerative change is present in the thoracic spine. IMPRESSION: 1. COPD. 2. Right lower lobe atelectasis or infiltrate unchanged compared to the previous study. 3. Small right pleural effusion unchanged compared to the previous study. 4. There is a possible small left pleural effusion. 5. There are pleural-based densities in the right hemithorax that are unchanged compared to the previous study. Signed by Jose Alejandro Belcher MD 04/21/2017 09:25 A
== END ==
LOC: M SMT 08:44
PROVIDERS: ATTEND Thoracic Surgery (Cardiothoracic Vascular Surgery)
DX: J44.9 Chronic obstructive pulmonary disease, unspecified (principal); J91.8 Pleural effusion in other conditions classified elsewhere

== ENCOUNTER → 2017-05-10 | Outpatient (CLI) | payer MEDICARE, OTHER ==
[~2017-05-10] MED LIST changes: +DIGO0.12 PO; +TOPR50TA PO; +VITA-122 PO
--- NOTE | 2017-05-10 15:27 | REP ---
CHEST, TWO VIEWS: Two views of the chest are performed, status post right thoracentesis. There is decreased amount of right pleural fluid with mild residual pleural fluid or thickening. There is no pneumothorax. Mild atelectasis/infiltrate is seen in the right base. There is mild persistent blunting of the left costophrenic angle. The cardiomediastinal silhouette is unchanged. IMPRESSION: No pneumothorax, status post right thoracentesis. Signed by Eugenio Mejias MD 05/10/2017 04:51 P
[2017-05-10 21:19] LABS: BF DIFF IF INDICATED? NO (NO)
--- NOTE | 2017-05-11 06:30 | REP ---
ULTRASOUND GUIDED RIGHT THORACENTESIS: The procedure was performed under the direct supervision of Dr. Mejias. The risks and benefits of the procedure were explained to the patient and informed consent was obtained. Preliminary sonography shows that the pleural effusion is multiloculated. The skin was prepped and draped in a sterile fashion. 1% lidocaine was used as a local anesthetic. Using ultrasound guidance, an 8-Wolof multi-side hole catheter was inserted using trocar technique. 35 mL of reema colored fluid was withdrawn and sent to the lab. The catheter was moved around inside the pleural effusion to try and break up some of the septations, however, that is all the fluid that was able to be withdrawn. The patient tolerated the procedure well and there were no immediate complications. After the appropriate amount of monitored convalescence, the patient was discharged from the department. Reviewed by MILTON Givens 05/11/2017 05:04 PEdited and Signed by Eugenio Mejias MD 05/12/2017 05:31 P
== END ==
LOC: M RADPRO 12:26
PROVIDERS: ATTEND Internal Medicine Cardiovascular Disease
DX: J90 Pleural effusion, not elsewhere classified (principal); I48.91 Unspecified atrial fibrillation; Z79.82 Long term (current) use of aspirin; Z79.899 Other long term (current) drug therapy